=== PATIENT | female | born 1960 | race Caucasian/White ===

== ENCOUNTER 2020-08-05 14:30 | Outpatient (RCR) | payer MEDICARE, SELFPAY ==
--- NOTE | 2020-07-28 15:43 | PT.OIE ---
Current Diagnoses Pain in right knee (07/28/20) Visit Care Team Role Provider Type Sukh Augustin MD Attending Provider Non-Staff Primary Care Provider Referring Provider Specialty: Medical Address: [address] [place] [address], [place], [address] Email: Physical Therapy Initial Evaluation PT-OP-A Visit Information Start: 07/27/20 15:27 Freq: Status: Active Protocol: Document 07/28/20 13:00 MB (Rec: 07/28/20 13:36 MB [id number]) Out-Patient Physical Therapy Visit Information Visit Information Visit Type Initial Evaluation Visit Note Medicare Physical Therapy Visit Start Time 13:00 Visit Stop Time 13:55 Total Visit Minutes 55 Visit Number 1 Evaluation Information Evaluation Date 07/28/20 PT-OP-B Current Condition Start: 07/27/20 15:27 Freq: Status: Active Protocol: Document 07/28/20 13:00 MB (Rec: 07/28/20 13:36 MB [id number]) Current Condition History of Current Condition Onset Date January 2020 Current Complaints Right knee doesn't work. Can' t walk, can't stand, can't sleep. History of Current Condition Pt reports history of back pain with fusion when she was 30 y/o and that it lasted about 20 years. Pt tripped two years ago and and injured right groin. It was a twisting injury and she did not land on her knee. Pt had a fall down the stairs in January. She was holding onto the rail on the left and had another twisting injury with her right foot anchored in non -slip shoes. Pt reports she got a right knee x-ray in May and states that the doctor did not give her any information about it. She thinks she might have arthritis in the knee. She reports that she is having pain up to her right groin and sciatic area and low back. She has 4 stairs to get into the house. She has a column that she leans into. Pt states that she has been using a cane in her right hand. She does not bring her cane into PT. She does not think that she has room for a RW. She just moved to a new apartment and has a lot of stuff around. Pt reports she has the most pain with standing and walking . She has trouble finding a good position to sleep in. She is sleeping on a tempurpedic mattress on the floor. She is driving herself and doing all self-care tasks. PMH: pt states that she has a history of PTSD, lumbar fusion , DM, HTN, depression. Pt is very tearful during evaluation . Pt reports that she is in a safe environment but does not have any support. Pt is taking Percicet 10 mg no more than twice a day. She has been on pain medicaion therapy since 2004 for her back. She is not using ice because it hurts. She is using Voltaren. Pt takes Baclofen for back pain and it is helping the knee. Pt does not have an orthopedic appointment but is concerned about needing surgical consult . Pt reports right medial knee pain up to 10/10, right groin pain up to 8/10 and right LBP up to 5/10. Treatment Goals Patient/Caregiver Goals To get her right knee better and hopefully not have surgery . PT-OP-C Subjective Start: 07/27/20 15: Freq: Status: Active Protocol: Document 07/28/20 13:00 MB (Rec: 07/28/20 14:03 MB [id number]) OP-PT Subjective Patient Comments Patient Comments See history of current condition Patient Questionnaires Lower Extremity Functional Scale LEFS Score 12 LEFS Impairment 60 to 79% Impaired (Score 17- 31) PT-OP-D Balance Start: 07/27/20 15:27 Freq: Status: Active Protocol: Document 07/28/20 13:00 MB (Rec: 07/28/20 15:42 MB [id number]) OP-PT Balance Assessment Sitting Balance Static Sitting Balance Ability Normal Dynamic Sitting Balance Ability Normal Standing Balance Static Standing Balance Ability Fair Dynamic Standing Balance Ability Poor Standing Balance Comments Pt favors the right leg and is able to maintain static standing balance at front office spec with walker but otherwise requests to sit Balance Tests Other Other Balance Tests Performed Pt is unable to perform further balance testing today Grady Fall Scale Copyright Permission PT-OP-G Mobility & Gait Start: 07/27/20 15:27 Freq: Status: Active Protocol: Document 07/28/20 13:00 MB (Rec: 07/28/20 15:42 MB [id number]) OP Gait Assessment Gait Gait Assistance Required: Independent Distance (Feet) 75 Assistive Devices Assistive Device None,Front Wheeled Walker Gait Deviations General Gait Pattern Antalgic,Decreased Stride Length,Decreased Feet Clearance,Flexed Trunk Factors Limiting Gait Function Factors Limiting Gait Function Decreased Strength,Pain,Poor Balance,Poor Safety Awareness Comments Gait Comments Pt tends to gait train with right leg straight and is able to improve right knee flexion with walker and supportive right knee KT PT-OP-J Posture/Palpation/Skin Start: 07/27/20 15:27 Freq: Status: Active Protocol: Document 07/28/20 13:00 MB (Rec: 07/28/20 15:42 MB [id number]) Posture Evaluation Comments Posture Comments Forward flexed posture with rounded shoulders, Dowager's hump, increased body mass, anterior tilt pelvis. No noticeable edema right knee. PT-OP-K Range of Motion Start: 07/27/20 15:27 Freq: Status: Active Protocol: Document 07/28/20 13:00 MB (Rec: 07/28/20 15:42 MB [id number]) Knee Goniometric Range of Motion Knee ROM Limitations Comments B AROM supine 0-120 deg and pt does not report pain, PT distracts pt during testing by conversation. Pt also naturally bends both knees in supine similarly PT-OP-M Strength Start: 07/27/20 15:27 Freq: Status: Active Protocol: Document 07/28/20 13:00 MB (Rec: 07/28/20 15:42 MB [id number]) Hip Strength Hip Manual Muscle Testing Left Flexion (L2) 5 Normal Abduction 3+ Fair+ Right Flexion (L2) 5 Normal Abduction 4 Good Knee Strength Knee Manual Muscle Testing Left Flexion (S2) 5 Normal Extension (L3) 5 Normal Right Comments NT d/t pain Ankle/Foot Strength Ankle and Foot Manual Muscle Testing Left Dorsiflexion (L4) 5 Normal Right Dorsiflexion (L4) 5 Normal Toe Strength Toe Manual Muscle Testing Left Great Toe Extension 5 Normal Right Great Toe Extension 5 Normal PT-OP-Q Treatments Start: 07/27/20 15:27 Freq: Status: Active Protocol: Document 07/28/20 13:00 MB (Rec: 07/28/20 14:08 MB [id number]) Gait Training Gait Activity Gait training with walker Comments Gait without walker or KT: antalgic, favoring the right knee and pt tends to keep the right knee straight and perform step-to gait Gait without walker after taping appears similar Gait with walker and KT supporting right knee: pt is able to bend knee for gait better, gait is still antalgic and slow with occ step-to pattern. Pt has less pain with standing and can stand at front office spec with walker Manual Therapy Treatment Taping R knee Comments Black KT to support right knee : c strip under patella and B I strips to support medial and lateral knee Self-Care/Home Management Treatment Education Caregiver Education Importance of trying to get a RW to help with gait pattern and right leg and back pain; if using walker, use in left hand; increase non-caffeinated fluid intake; plan for therapy PT-OP-T Assessment and Plan Start: 07/27/20 15:27 Freq: Status: Active Protocol: Document 07/28/20 13:00 MB (Rec: 07/28/20 14:11 MB [id number]) Physical Therapy Assessment Rehab Potential Rehabilitation Potential Fair Evaluation Complexity Number of Personal Factors/Comorbidities 3 or More Number of Body Systems Impaired 3 Clinical Presentation at Evaluation Evolving Impairments Impairments Activity Tolerance,Balance, Functional Activities, Functional Mobility,Gait,Pain, Posture,Soft Tissue Mobility, Strength Other Impairments Personal factors: pt lives alone and has no help, stairs to enter home, depression and PTSD (decreased support and coping strategies) Body systems affected: psychosocial, musculoskeletal, metabolic (DM and possible underlying inflammatory issue given presentation) Her clinical picture is evolving given mechanism of injury, ongoing pain, unsure if anatomical change in right meniscus/ligmentous Other Concerns Fall Risk Yes, recent history of fall Goals 4 Custodial Goal (LTG) Pt will perform progressive HEP with I including flexibility, alignment, ROM, strengthening, balance and gait to improve gait and pain by 09/27/2020. LTG Duration 8 weeks 3 Electrocardiogram Technician Goal (LTG) Pt will perform Romberg with eyes closed for at least 1' to improve balance and decrease fall risk by 09/27/2020. LTG Duration 8 weeks 2 Custodial Goal (LTG) Pt will present with B hip flexion and abduction, and right knee extension and flexion strength to 5/5 to improve gait by 09/27/2020. LTG Duration 8 weeks 1 Electrocardiogram Technician Goal (LTG) Pt will present with LE functional index score to reflect no more than 30% impairment to reflect improved functional mobility and decreased pain by 09/27/2020. LTG Duration 8 weeks Assessment Summary Assessment Pt is a 60 y/o female presenting with complicated functional and medical presentation. Pt had a fall down the steps in January where she describes catching herself with her hands on the left rail and twisting her right knee with her right knee planted. She had a similar twisting injury previously. She presents with medial right knee pain with point tenderness at the joint line. Pt reports that knee x-ray was negative and that she has not seen an orthopedist. PT is concerned about a meniscal and /or ligamentous injury and recommends orthopedic consult to determine if she needs further dxs. Pt reports history of chronic back pain s /p injury and reports of failed fusion, takes opioids daily, and reports history of depression and PTSD. She is tearful during PT examination. Pt will benefit from PT to improve ROM, strength, balance and gait. This date, PT teaches gait with RW and provides KT for support of right knee. Overall functional prognosis is guarded. Physical Therapy Plan Frequency and Duration Frequency of Treatment 2x/Week Duration of Treatment 8 weeks Plan of Care Start Date 07/28/20 Plan of Care End Date 09/26/20 Therapeutic Interventions Therapeutic Interventions Aquatic Therapy,Balance Training,Canalithic Repositioning,Gait Training, Home Exercise Program,Manual Therapy,Neuromuscular Re- education,Patient/Caregiver Education,Self-Care/Home Management,Taping,Therapeutic Activities,Therapeutic Exercises Modalities Cold Pack/Ice Massage,Electric Stimulation,Hot Packs, Ultrasound Other Referrals/Consults Referrals/Consults Recommended Orthopedist consult to assess right knee, consider further dxs Next Visit Focus/Plan Next Note Type Treatment Note Next Visit Plan Initiate gentle exercises, ongoing gait training with AD
--- NOTE | 2020-07-28 15:43 | PT.OPPOC ---
Physical, Occupational & Speech Therapy At [facility] Current Diagnoses Pain in right knee (07/28/20) Visit Care Team Role Provider Type Sukh Augustin MD Attending Provider Non-Staff Primary Care Provider Referring Provider Specialty: Medical Address: [address] [place] [address], [id number] Email: Plan Of Care PT-OP-T Assessment and Plan Start: 07/27/20 15:27 Freq: Status: Active Protocol: Document 07/28/20 13:00 MB (Rec: 07/28/20 14:11 MB [id number]) Physical Therapy Assessment Rehab Potential Rehabilitation Potential Fair Evaluation Complexity Number of Personal Factors/Comorbidities 3 or More Number of Body Systems Impaired 3 Clinical Presentation at Evaluation Evolving Impairments Impairments Activity Tolerance,Balance, Functional Activities, Functional Mobility,Gait,Pain, Posture,Soft Tissue Mobility, Strength Other Impairments Personal factors: pt lives alone and has no help, stairs to enter home, depression and PTSD (decreased support and coping strategies) Body systems affected: psychosocial, musculoskeletal, metabolic (DM and possible underlying inflammatory issue given presentation) Her clinical picture is evolving given mechanism of injury, ongoing pain, unsure if anatomical change in right meniscus/ligmentous Other Concerns Fall Risk Yes, recent history of fall Goals 4 Senior Care Goal (LTG) Pt will perform progressive HEP with I including flexibility, alignment, ROM, strengthening, balance and gait to improve gait and pain by 09/27/2020. LTG Duration 8 weeks 3 Senior Care Goal (LTG) Pt will perform Romberg with eyes closed for at least 1' to improve balance and decrease fall risk by 09/27/2020. LTG Duration 8 weeks 2 Senior Care Goal (LTG) Pt will present with B hip flexion and abduction, and right knee extension and flexion strength to 5/5 to improve gait by 09/27/2020. LTG Duration 8 weeks 1 C S S Representative Goal (LTG) Pt will present with LE functional index score to reflect no more than 30% impairment to reflect improved functional mobility and decreased pain by 09/27/2020. LTG Duration 8 weeks Assessment Summary Assessment Pt is a 60 y/o female presenting with complicated functional and medical presentation. Pt had a fall down the steps in January where she describes catching herself with her hands on the left rail and twisting her right knee with her right knee planted. She had a similar twisting injury previously. She presents with medial right knee pain with point tenderness at the joint line. Pt reports that knee x-ray was negative and that she has not seen an orthopedist. PT is concerned about a meniscal and /or ligamentous injury and recommends orthopedic consult to determine if she needs further dxs. Pt reports history of chronic back pain s /p injury and reports of failed fusion, takes opioids daily, and reports history of depression and PTSD. She is tearful during PT examination. Pt will benefit from PT to improve ROM, strength, balance and gait. This date, PT teaches gait with RW and provides KT for support of right knee. Overall functional prognosis is guarded. Physical Therapy Plan Frequency and Duration Frequency of Treatment 2x/Week Duration of Treatment 8 weeks Plan of Care Start Date 07/28/20 Plan of Care End Date 09/26/20 Therapeutic Interventions Therapeutic Interventions Aquatic Therapy,Balance Training,Canalithic Repositioning,Gait Training, Home Exercise Program,Manual Therapy,Neuromuscular Re- education,Patient/Caregiver Education,Self-Care/Home Management,Taping,Therapeutic Activities,Therapeutic Exercises Modalities Cold Pack/Ice Massage,Electric Stimulation,Hot Packs, Ultrasound Other Referrals/Consults Referrals/Consults Recommended Orthopedist consult to assess right knee, consider further dxs Next Visit Focus/Plan Next Note Type Treatment Note Next Visit Plan Initiate gentle exercises, ongoing gait training with AD Plan of Care Dates Plan of Care Start Date 07/28/20 Plan of Care End Date 09/26/20 Electronically Signed by: Allison Fajardo PT 07/28/20 [id number] Please Sign and Return: I have reviewed this Plan of Care and certify that the skilled therapy services above are required to meet the patient?s needs. Physician Signature Date Printed Name and Credentials Clinical Instructor Signature Printed Name and Credentials
--- NOTE | 2020-08-04 13:48 | PT.OTN ---
Current Diagnoses Pain in right knee (08/04/20) Physical Therapy Treatment Note PT-OP-A Visit Information Start: 07/27/20 15:27 Freq: Status: Active Protocol: Document 08/04/20 13:00 MB (Rec: 08/04/20 13:48 MB [id number]) Out-Patient Physical Therapy Visit Information Visit Information Visit Type Treatment Note Visit Note Medicare Physical Therapy Visit Start Time 13:00 Visit Stop Time 13:45 Total Visit Minutes 45 Visit Number 2 PT-OP-B Current Condition Start: 07/27/20 15:27 Freq: Status: Active Protocol: Document 07/28/20 13:00 MB (Rec: 07/28/20 13:36 MB [id number]) Current Condition History of Current Condition Onset Date January 2020 Current Complaints Right knee doesn't work. Can' t walk, can't stand, can't sleep. History of Current Condition Pt reports history of back pain with fusion when she was 30 y/o and that it lasted about 20 years. Pt tripped two years ago and and injured right groin. It was a twisting injury and she did not land on her knee. Pt had a fall down the stairs in January. She was holding onto the rail on the left and had another twisting injury with her right foot anchored in non -slip shoes. Pt reports she got a right knee x-ray in May and states that the doctor did not give her any information about it. She thinks she might have arthritis in the knee. She reports that she is having pain up to her right groin and sciatic area and low back. She has 4 stairs to get into the house. She has a column that she leans into. Pt states that she has been using a cane in her right hand. She does not bring her cane into PT. She does not think that she has room for a RW. She just moved to a new apartment and has a lot of stuff around. Pt reports she has the most pain with standing and walking . She has trouble finding a good position to sleep in. She is sleeping on a tempurpedic mattress on the floor. She is driving herself and doing all self-care tasks. PMH: pt states that she has a history of PTSD, lumbar fusion , DM, HTN, depression. Pt is very tearful during evaluation . Pt reports that she is in a safe environment but does not have any support. Pt is taking Percicet 10 mg no more than twice a day. She has been on pain medicaion therapy since 2004 for her back. She is not using ice because it hurts. She is using Voltaren. Pt takes Baclofen for back pain and it is helping the knee. Pt does not have an orthopedic appointment but is concerned about needing surgical consult . Pt reports right medial knee pain up to 10/10, right groin pain up to 8/10 and right LBP up to 5/10. Treatment Goals Patient/Caregiver Goals To get her right knee better and hopefully not have surgery . PT-OP-C Subjective Start: 07/27/20 15:27 Freq: Status: Active Protocol: Document 08/04/20 13:00 MB (Rec: 08/04/20 13:48 MB [id number]) OP-PT Subjective Patient Comments Patient Comments Pt miswrote her appointments in calendar and so missed last appointment. She will need afternoon appointments from here on out. 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 but otherwise requests to sit Balance Tests Other Other Balance Tests Performed Pt is unable to perform further balance testing today Grady Fall Scale Copyright Permission PT-OP-G Mobility & Gait Start: 07/27/20 15:27 Freq: Status: Active Protocol: Document 07/28/20 13:00 MB (Rec: 07/28/20 15:42 MB [id number]) OP Gait Assessment Gait Gait Assistance Required: Independent Distance (Feet) 75 Assistive Devices Assistive Device None,Front Wheeled Walker Gait Deviations General Gait Pattern Antalgic,Decreased Stride Length,Decreased Feet Clearance,Flexed Trunk Factors Limiting Gait Function Factors Limiting Gait Function Decreased Strength,Pain,Poor Balance,Poor Safety Awareness Comments Gait Comments Pt tends to gait train with right leg straight and is able to improve right knee flexion with walker and supportive right knee KT PT-OP-J Posture/Palpation/Skin Start: 07/27/20 15:27 Freq: Status: Active Protocol: Document 07/28/20 13:00 MB (Rec: 07/28/20 15:42 MB [id number]) Posture Evaluation Comments Posture Comments Forward flexed posture with rounded shoulders, Dowager's hump, increased body mass, anterior tilt pelvis. No noticeable edema right knee. PT-OP-K Range of Motion Start: 07/27/20 15:27 Freq: Status: Active Protocol: Document 07/28/20 13:00 MB (Rec: 07/28/20 15:42 MB [id number]) Knee Goniometric Range of Motion Knee ROM Limitations Comments B AROM supine 0-120 deg and pt does not report pain, PT distracts pt during testing by conversation. Pt also naturally bends both knees in supine similarly PT-OP-M Strength Start: 07/27/20 15:27 Freq: Status: Active Protocol: Document 07/28/20 13:00 MB (Rec: 07/28/20 15:42 MB [id number]) Hip Strength Hip Manual Muscle Testing Left Flexion (L2) 5 Normal Abduction 3+ Fair+ Right Flexion (L2) 5 Normal Abduction 4 Good Knee Strength Knee Manual Muscle Testing Left Flexion (S2) 5 Normal Extension (L3) 5 Normal Right Comments NT d/t pain Ankle/Foot Strength Ankle and Foot Manual Muscle Testing Left Dorsiflexion (L4) 5 Normal Right Dorsiflexion (L4) 5 Normal Toe Strength Toe Manual Muscle Testing Left Great Toe Extension 5 Normal Right Great Toe Extension 5 Normal PT-OP-Q Treatments Start: 07/27/20 15:27 Freq: Status: Active Protocol: Document 08/04/20 13:00 MB (Rec: 08/04/20 13:48 MB [id number]) Therapeutic Exercises Supine Exercises HS, APs, QS Comments 5 reps all today EFT Comments Pt performs today and PT has to re-direct her often Self-Care/Home Management Treatment Education Other Education Proper use of cane with correct height, log roll technique, benefits of aquatic therapy when pool opens for this, research and purpose for EFT, sympathetic and parasympathetic nervous system , proper sleeping hygiene PT-OP-T Assessment and Plan Start: 07/27/20 15:27 Freq: Status: Active Protocol: Document 08/04/20 13:00 MB (Rec: 08/04/20 13:48 MB [id number]) Physical Therapy Assessment Rehab Potential Rehabilitation Potential Fair Evaluation Complexity Number of Personal Factors/Comorbidities 3 or More Number of Body Systems Impaired 3 Clinical Presentation at Evaluation Evolving Impairments Impairments Activity Tolerance,Balance, Functional Activities, Functional Mobility,Gait,Pain, Posture,Soft Tissue Mobility, Strength Other Impairments Personal factors: pt lives alone and has no help, stairs to enter home, depression and PTSD (decreased support and coping strategies) Body systems affected: psychosocial, musculoskeletal, metabolic (DM and possible underlying inflammatory issue given presentation) Her clinical picture is evolving given mechanism of injury, ongoing pain, unsure if anatomical change in right meniscus/ligmentous Other Concerns Fall Risk Yes, recent history of fall Goals 4 Group Home Goal (LTG) Pt will perform progressive HEP with I including flexibility, alignment, ROM, strengthening, balance and gait to improve gait and pain by 09/27/2020. LTG Duration 8 weeks 3 Group Home Goal (LTG) Pt will perform Romberg with eyes closed for at least 1' to improve balance and decrease fall risk by 09/27/2020. LTG Duration 8 weeks 2 Law Office Receptionist Goal (LTG) Pt will present with B hip flexion and abduction, and right knee extension and flexion strength to 5/5 to improve gait by 09/27/2020. LTG Duration 8 weeks 1 Law Office Receptionist Goal (LTG) Pt will present with LE functional index score to reflect no more than 30% impairment to reflect improved functional mobility and decreased pain by 09/27/2020. LTG Duration 8 weeks Assessment Summary Assessment Pt is tearful during treatment today and is unable to focus on PT recommendation to follow -up with PCP about orthopedic consult. Pt is very upset about not having handicap parking permit. It is difficult to get pt in a good position with leg support and she prefers to use peppermint muscle ease spray. She is emotional about previous injuries, surgeries and doctors. Pt reports extreme pain today after doing laundry yesterday. She used pain medication, hot bath and spray today as a result of pain. Emotional lability and difficulty staying on tasks as well as high pain level and inability to get in a comfortable position are barriers to PT. Physical Therapy Plan Frequency and Duration Frequency of Treatment 2x/Week Duration of Treatment 8 weeks Plan of Care Start Date 07/28/20 Plan of Care End Date 09/26/20 Therapeutic Interventions Therapeutic Interventions Aquatic Therapy,Balance Training,Canalithic Repositioning,Gait Training, Home Exercise Program,Manual Therapy,Neuromuscular Re- education,Patient/Caregiver Education,Self-Care/Home Management,Taping,Therapeutic Activities,Therapeutic Exercises Modalities Cold Pack/Ice Massage,Electric Stimulation,Hot Packs, Ultrasound Other Referrals/Consults Referrals/Consults Recommended Orthopedist consult to assess right knee, consider further dxs Next Visit Focus/Plan Next Note Type Treatment Note Next Visit Plan Initiate gentle exercises, ongoing gait training with AD
--- NOTE | 2020-08-05 15:10 | PT.OTN ---
Current Diagnoses Pain in right knee (08/05/20) Physical Therapy Treatment Note PT-OP-A Visit Information Start: 07/27/20 15:27 Freq: Status: Active Protocol: Document 08/05/20 14:41 MB (Rec: 08/05/20 15:09 MB [id number]) Out-Patient Physical Therapy Visit Information Visit Information Visit Type Treatment Note Visit Note Medicare Physical Therapy Pt arrives late to appointment Visit Start Time 14:41 Visit Stop Time 15:09 Total Visit Minutes 28 Visit Number 3 PT-OP-B Current Condition Start: 07/27/20 15:27 Freq: Status: Active Protocol: Document 07/28/20 13:00 MB (Rec: 07/28/20 13:36 MB [id number]) Current Condition History of Current Condition Onset Date January 2020 Current Complaints Right knee doesn't work. Can' t walk, can't stand, can't sleep. History of Current Condition Pt reports history of back pain with fusion when she was 30 y/o and that it lasted about 20 years. Pt tripped two years ago and and injured right groin. It was a twisting injury and she did not land on her knee. Pt had a fall down the stairs in January. She was holding onto the rail on the left and had another twisting injury with her right foot anchored in non -slip shoes. Pt reports she got a right knee x-ray in May and states that the doctor did not give her any information about it. She thinks she might have arthritis in the knee. She reports that she is having pain up to her right groin and sciatic area and low back. She has 4 stairs to get into the house. She has a column that she leans into. Pt states that she has been using a cane in her right hand. She does not bring her cane into PT. She does not think that she has room for a RW. She just moved to a new apartment and has a lot of stuff around. Pt reports she has the most pain with standing and walking . She has trouble finding a good position to sleep in. She is sleeping on a tempurpedic mattress on the floor. She is driving herself and doing all self-care tasks. PMH: pt states that she has a history of PTSD, lumbar fusion , DM, HTN, depression. Pt is very tearful during evaluation . Pt reports that she is in a safe environment but does not have any support. Pt is taking Percicet 10 mg no more than twice a day. She has been on pain medicaion therapy since 2004 for her back. She is not using ice because it hurts. She is using Voltaren. Pt takes Baclofen for back pain and it is helping the knee. Pt does not have an orthopedic appointment but is concerned about needing surgical consult . Pt reports right medial knee pain up to 10/10, right groin pain up to 8/10 and right LBP up to 5/10. Treatment Goals Patient/Caregiver Goals To get her right knee better and hopefully not have surgery . PT-OP-C Subjective Start: 07/27/20 15:27 Freq: Status: Active Protocol: Document 08/05/20 14:41 MB (Rec: 08/05/20 15:09 MB [id number]) OP-PT Subjective Patient Comments Patient Comments Pt states that she is very sore, lots of pain and little control of it. She is having more pain today than yesterday . 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 but otherwise requests to sit Balance Tests Other Other Balance Tests Performed Pt is unable to perform further balance testing today Grady Fall Scale Copyright Permission PT-OP-G Mobility & Gait Start: 07/27/20 15:27 Freq: Status: Active Protocol: Document 07/28/20 13:00 MB (Rec: 07/28/20 15:42 MB [id number]) OP Gait Assessment Gait Gait Assistance Required: Independent Distance (Feet) 75 Assistive Devices Assistive Device None,Front Wheeled Walker Gait Deviations General Gait Pattern Antalgic,Decreased Stride Length,Decreased Feet Clearance,Flexed Trunk Factors Limiting Gait Function Factors Limiting Gait Function Decreased Strength,Pain,Poor Balance,Poor Safety Awareness Comments Gait Comments Pt tends to gait train with right leg straight and is able to improve right knee flexion with walker and supportive right knee KT PT-OP-J Posture/Palpation/Skin Start: 07/27/20 15:27 Freq: Status: Active Protocol: Document 07/28/20 13:00 MB (Rec: 07/28/20 15:42 MB [id number]) Posture Evaluation Comments Posture Comments Forward flexed posture with rounded shoulders, Dowager's hump, increased body mass, anterior tilt pelvis. No noticeable edema right knee. PT-OP-K Range of Motion Start: 07/27/20 15:27 Freq: Status: Active Protocol: Document 07/28/20 13:00 MB (Rec: 07/28/20 15:42 MB [id number]) Knee Goniometric Range of Motion Knee ROM Limitations Comments B AROM supine 0-120 deg and pt does not report pain, PT distracts pt during testing by conversation. Pt also naturally bends both knees in supine similarly PT-OP-M Strength Start: 07/27/20 15:27 Freq: Status: Active Protocol: Document 07/28/20 13:00 MB (Rec: 07/28/20 15:42 MB [id number]) Hip Strength Hip Manual Muscle Testing Left Flexion (L2) 5 Normal Abduction 3+ Fair+ Right Flexion (L2) 5 Normal Abduction 4 Good Knee Strength Knee Manual Muscle Testing Left Flexion (S2) 5 Normal Extension (L3) 5 Normal Right Comments NT d/t pain Ankle/Foot Strength Ankle and Foot Manual Muscle Testing Left Dorsiflexion (L4) 5 Normal Right Dorsiflexion (L4) 5 Normal Toe Strength Toe Manual Muscle Testing Left Great Toe Extension 5 Normal Right Great Toe Extension 5 Normal PT-OP-Q Treatments Start: 07/27/20 15:27 Freq: Status: Active Protocol: Document 08/05/20 14:41 MB (Rec: 08/05/20 15:09 MB [id number]) Therapeutic Exercises Supine Exercises QS Comments Added today to help decrease knee contracture 4 count breathing with diaphragm component Comments Performed today and pt is able to self-massage pain better HS, APs, QS Comments 5 reps all today Self-Care/Home Management Treatment Education Other Education Role and barriers with OPPT, recommendation to follow-up with PCP about orthopedic consult, trying ice for right knee, con't HEP, walk with cane in left hand to help unweight right hand PT-OP-T Assessment and Plan Start: 07/27/20 15:27 Freq: Status: Active Protocol: Document 08/05/20 14:41 MB (Rec: 08/05/20 15:09 MB [id number]) Physical Therapy Assessment Rehab Potential Rehabilitation Potential Fair Evaluation Complexity Number of Personal Factors/Comorbidities 3 or More Number of Body Systems Impaired 3 Clinical Presentation at Evaluation Evolving Impairments Impairments Activity Tolerance,Balance, Functional Activities, Functional Mobility,Gait,Pain, Posture,Soft Tissue Mobility, Strength Other Impairments Personal factors: pt lives alone and has no help, stairs to enter home, depression and PTSD (decreased support and coping strategies) Body systems affected: psychosocial, musculoskeletal, metabolic (DM and possible underlying inflammatory issue given presentation) Her clinical picture is evolving given mechanism of injury, ongoing pain, unsure if anatomical change in right meniscus/ligmentous Other Concerns Fall Risk Yes, recent history of fall Goals 4 Senior Living Goal (LTG) Pt will perform progressive HEP with I including flexibility, alignment, ROM, strengthening, balance and gait to improve gait and pain by 09/27/2020. LTG Duration Not progressing, d/c PT 3 Senior Living Goal (LTG) Pt will perform Romberg with eyes closed for at least 1' to improve balance and decrease fall risk by 09/27/2020. LTG Duration Not progressing, d/c PT 2 Senior Living Goal (LTG) Pt will present with B hip flexion and abduction, and right knee extension and flexion strength to 5/5 to improve gait by 09/27/2020. LTG Duration Not progressing, d/c PT 1 Senior Living Goal (LTG) Pt will present with LE functional index score to reflect no more than 30% impairment to reflect improved functional mobility and decreased pain by 09/27/2020. LTG Duration Not progressing, d/c PT Assessment Summary Assessment Pt arrives using cane in right hand despite ed from previous treatments. Pt reports ongoing bad pain, worse today than yesterday, but she is laughing some today. Overall pain presentation is an ongoing barrier to PT. Pt can only perform limited HS today, limited by reports of pain. She reports right knee pain with GS. PT and pt discuss barriers to PT this date--pain and posible anatomical damage . PT and pt agree that PT is not helpful at this time. Recommend follow-up with orthopedic surgeon, possible right knee MRI if doctor deems appropriate given two twisting injuries and medial joint line tenderness. She may benefit from aquatic therapy when the pool re-opens. D/c PT at this time. Physical Therapy Plan Frequency and Duration Frequency of Treatment 2x/Week Duration of Treatment 8 weeks Plan of Care Start Date 07/28/20 Plan of Care End Date 09/26/20 Therapeutic Interventions Therapeutic Interventions Aquatic Therapy,Balance Training,Canalithic Repositioning,Gait Training, Home Exercise Program,Manual Therapy,Neuromuscular Re- education,Patient/Caregiver Education,Self-Care/Home Management,Taping,Therapeutic Activities,Therapeutic Exercises Modalities Cold Pack/Ice Massage,Electric Stimulation,Hot Packs, Ultrasound Other Referrals/Consults Referrals/Consults Recommended Orthopedist consult to assess right knee, consider further dxs
--- NOTE | 2020-08-05 15:12 | PT.OPDS ---
Current Diagnoses Pain in right knee (08/05/20) Visit Care Team Role Provider Type Sukh Augustin MD Attending Provider Non-Staff Primary Care Provider Referring Provider Specialty: Medical Address: [address] [place] [address], [place], [address] Email: Visit Number Visit Number 3 Discharge Summary PT-OP-B Current Condition Start: 07/27/20 15:27 Freq: Status: Active Protocol: Document 07/28/20 13:00 MB (Rec: 07/28/20 13:36 MB [id number]) Current Condition History of Current Condition Onset Date January 2020 Current Complaints Right knee doesn't work. Can' t walk, can't stand, can't sleep. History of Current Condition Pt reports history of back pain with fusion when she was 30 y/o and that it lasted about 20 years. Pt tripped two years ago and and injured right groin. It was a twisting injury and she did not land on her knee. Pt had a fall down the stairs in January. She was holding onto the rail on the left and had another twisting injury with her right foot anchored in non -slip shoes. Pt reports she got a right knee x-ray in May and states that the doctor did not give her any information about it. She thinks she might have arthritis in the knee. She reports that she is having pain up to her right groin and sciatic area and low back. She has 4 stairs to get into the house. She has a column that she leans into. Pt states that she has been using a cane in her right hand. She does not bring her cane into PT. She does not think that she has room for a RW. She just moved to a new apartment and has a lot of stuff around. Pt reports she has the most pain with standing and walking . She has trouble finding a good position to sleep in. She is sleeping on a tempurpedic mattress on the floor. She is driving herself and doing all self-care tasks. PMH: pt states that she has a history of PTSD, lumbar fusion , DM, HTN, depression. Pt is very tearful during evaluation . Pt reports that she is in a safe environment but does not have any support. Pt is taking Percicet 10 mg no more than twice a day. She has been on pain medicaion therapy since 2004 for her back. She is not using ice because it hurts. She is using Voltaren. Pt takes Baclofen for back pain and it is helping the knee. Pt does not have an orthopedic appointment but is concerned about needing surgical consult . Pt reports right medial knee pain up to 10/10, right groin pain up to 8/10 and right LBP up to 5/10. Treatment Goals Patient/Caregiver Goals To get her right knee better and hopefully not have surgery . PT-OP-C Subjective Start: 07/27/20 15:27 Freq: Status: Active Protocol: Document 08/05/20 14:41 MB (Rec: 08/05/20 15:09 MB [id number]) OP-PT Subjective Patient Comments Patient Comments Pt states that she is very sore, lots of pain and little control of it. She is having more pain today than yesterday . 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 but otherwise requests to sit Balance Tests Other Other Balance Tests Performed Pt is unable to perform further balance testing today Grady Fall Scale Copyright Permission PT-OP-G Mobility & Gait Start: 07/27/20 15:27 Freq: Status: Active Protocol: Document 07/28/20 13:00 MB (Rec: 07/28/20 15:42 MB [id number]) OP Gait Assessment Gait Gait Assistance Required: Independent Distance (Feet) 75 Assistive Devices Assistive Device None,Front Wheeled Walker Gait Deviations General Gait Pattern Antalgic,Decreased Stride Length,Decreased Feet Clearance,Flexed Trunk Factors Limiting Gait Function Factors Limiting Gait Function Decreased Strength,Pain,Poor Balance,Poor Safety Awareness Comments Gait Comments Pt tends to gait train with right leg straight and is able to improve right knee flexion with walker and supportive right knee KT PT-OP-J Posture/Palpation/Skin Start: 07/27/20 15:27 Freq: Status: Active Protocol: Document 07/28/20 13:00 MB (Rec: 07/28/20 15:42 MB [id number]) Posture Evaluation Comments Posture Comments Forward flexed posture with rounded shoulders, Dowager's hump, increased body mass, anterior tilt pelvis. No noticeable edema right knee. PT-OP-K Range of Motion Start: 07/27/20 15:27 Freq: Status: Active Protocol: Document 07/28/20 13:00 MB (Rec: 07/28/20 15:42 MB [id number]) Knee Goniometric Range of Motion Knee ROM Limitations Comments B AROM supine 0-120 deg and pt does not report pain, PT distracts pt during testing by conversation. Pt also naturally bends both knees in supine similarly PT-OP-M Strength Start: 07/27/20 15:27 Freq: Status: Active Protocol: Document 07/28/20 13:00 MB (Rec: 07/28/20 15:42 MB [id number]) Hip Strength Hip Manual Muscle Testing Left Flexion (L2) 5 Normal Abduction 3+ Fair+ Right Flexion (L2) 5 Normal Abduction 4 Good Knee Strength Knee Manual Muscle Testing Left Flexion (S2) 5 Normal Extension (L3) 5 Normal Right Comments NT d/t pain Ankle/Foot Strength Ankle and Foot Manual Muscle Testing Left Dorsiflexion (L4) 5 Normal Right Dorsiflexion (L4) 5 Normal Toe Strength Toe Manual Muscle Testing Left Great Toe Extension 5 Normal Right Great Toe Extension 5 Normal PT-OP-T Assessment and Plan Start: 07/27/20 15:27 Freq: Status: Active Protocol: Document 08/05/20 14:41 MB (Rec: 08/05/20 15:09 MB [id number]) Physical Therapy Assessment Rehab Potential Rehabilitation Potential Fair Evaluation Complexity Number of Personal Factors/Comorbidities 3 or More Number of Body Systems Impaired 3 Clinical Presentation at Evaluation Evolving Impairments Impairments Activity Tolerance,Balance, Functional Activities, Functional Mobility,Gait,Pain, Posture,Soft Tissue Mobility, Strength Other Impairments Personal factors: pt lives alone and has no help, stairs to enter home, depression and PTSD (decreased support and coping strategies) Body systems affected: psychosocial, musculoskeletal, metabolic (DM and possible underlying inflammatory issue given presentation) Her clinical picture is evolving given mechanism of injury, ongoing pain, unsure if anatomical change in right meniscus/ligmentous Other Concerns Fall Risk Yes, recent history of fall Goals 4 Usp Goal (LTG) Pt will perform progressive HEP with I including flexibility, alignment, ROM, strengthening, balance and gait to improve gait and pain by 09/27/2020. LTG Duration Not progressing, d/c PT 3 Abnormal Psychology Teacher Goal (LTG) Pt will perform Romberg with eyes closed for at least 1' to improve balance and decrease fall risk by 09/27/2020. LTG Duration Not progressing, d/c PT 2 Abnormal Psychology Teacher Goal (LTG) Pt will present with B hip flexion and abduction, and right knee extension and flexion strength to 5/5 to improve gait by 09/27/2020. LTG Duration Not progressing, d/c PT 1 Usp Goal (LTG) Pt will present with LE functional index score to reflect no more than 30% impairment to reflect improved functional mobility and decreased pain by 09/27/2020. LTG Duration Not progressing, d/c PT Assessment Summary Assessment Pt arrives using cane in right hand despite ed from previous treatments. Pt reports ongoing bad pain, worse today than yesterday, but she is laughing some today. Overall pain presentation is an ongoing barrier to PT. Pt can only perform limited HS today, limited by reports of pain. She reports right knee pain with GS. PT and pt discuss barriers to PT this date--pain and posible anatomical damage . PT and pt agree that PT is not helpful at this time. Recommend follow-up with orthopedic surgeon, possible right knee MRI if doctor deems appropriate given two twisting injuries and medial joint line tenderness. She may benefit from aquatic therapy when the pool re-opens. D/c PT at this time. Physical Therapy Plan Frequency and Duration Frequency of Treatment 2x/Week Duration of Treatment 8 weeks Plan of Care Start Date 07/28/20 Plan of Care End Date 09/26/20 Therapeutic Interventions Therapeutic Interventions Aquatic Therapy,Balance Training,Canalithic Repositioning,Gait Training, Home Exercise Program,Manual Therapy,Neuromuscular Re- education,Patient/Caregiver Education,Self-Care/Home Management,Taping,Therapeutic Activities,Therapeutic Exercises Modalities Cold Pack/Ice Massage,Electric Stimulation,Hot Packs, Ultrasound Other Referrals/Consults Referrals/Consults Recommended Orthopedist consult to assess right knee, consider further dxs
== END 2020-08-09 07:51 | disposition home or self-care (01) ==
LOC: PHYS 14:30
PROVIDERS: PCP Family Medicine; Referring Provider Family Medicine; Visit Provider Family Medicine
DX: M25.561 Pain in right knee (principal)
CPT/HCPCS: 97110; 97116; 97162; 97535

== ENCOUNTER 2020-09-26 23:55 | Emergency (ER) | payer MEDICARE, MEDICAID, SELFPAY ==
[2020-09-27] VITALS (13 sets, daily range): BP systolic 162–192; BP diastolic 71–107; PULSE 83–97; RESP 20–23; TEMP 37.4; O2SAT 87–98; BMI 30.7
[2020-09-27 00:22] LABS: COVID19 -Nasal RAPID Negative (Negative)
--- NOTE | 2020-09-27 00:47 | ED.FEVER ---
HPI - Fever General Chief Complaint: Fever Stated Complaint: fever, chills, vomitiing, trouble breathing Time Seen by Provider: 09/27/20 00:46 Source: patient and EMS Mode of arrival: EMS History of Present Illness HPI Narrative: The patient has been ill for 3+ days. She initially developed nausea, vomiting diarrhea, after about a day she felt better. She is on clear liquids. She thought she was back to normal today. She had a solid diet several hours ago. She comes the ER by EMS with recurrent nausea and vomiting. She has dry heaves. Diarrhea has decreased because of her decreased diet. She is passing small amounts of blood and mucus with the bowel movements. She denies chronic GI illness. She denies fever but has had chills. She currently has a headache. She has no sore throat, chest pain, dyspnea or cough. She has promethazine at home for as needed use. She also has muscle relaxants that she is not used. She is diabetic, she is currently not taking medications because she does not feel well with the medications. She has no URI symptoms, headache, or difficulty breathing. She has no fever. Related Data Home Medications Medication Instructions Recorded Confirmed amitriptyline 25 mg PO HS #30 10/10/16 atorvastatin [Lipitor] 20 mg PO HS #30 10/10/16 bupropion HCl [Wellbutrin XL] 150 mg PO QDAY #30 10/10/16 diazepam [Valium] PO Q8HP PRN #45 10/10/16 duloxetine 60 mg PO QDAY #30 10/10/16 oxycodone-acetaminophen 0 tab PO Q4HP PRN #90 10/10/16 quetiapine [Seroquel] 200 mg PO HS #30 10/10/16 Previous Rx's Medication Instructions Recorded promethazine [Phenadoz] 12.5 mg IL Q6HP PRN #5 supp 10/10/16 Allergies Allergy/AdvReac Type Severity Reaction Status Date / Time methotrexate [METHOTREXATE] Allergy Unknown Verified 09/27/20 00:24 ondansetron Allergy Unknown HEADACHE Verified 09/27/20 00:24 [From ZOFRAN ( HYDROCHLORIDE)] Review of Systems Constitutional Constitutional: Denies chills, Denies fever(s), Denies headache(s), Reports lethargy and Reports weakness Eyes Comments: No visual changes ENT Ears, Nose, Mouth, and Throat: Denies headache(s), Denies neck pain and Denies sore throat Cardiovascular Cardiovascular: Denies chest pain, Denies lightheadedness and Denies dyspnea Respiratory Respiratory: Denies cough, Denies dyspnea and Denies wheezing Gastrointestinal Gastrointestinal: Reports as per HPI Genitourinary Genitourinary: Denies dysuria Genitourinary: Denies dysuria Musculoskeletal Musculoskeletal: Denies back pain and Denies neck pain Integumentary/Breasts Skin/Breast: Denies pruritus and Denies rash Neurologic Neurologic: Denies confusion, Denies headache(s) and Reports weakness Psychiatric Psychiatric: Reports anxiety and Denies confusion Allergic/Immunologic Allergic/Immunologic: Denies wheezing Patient History Medical History (Updated 09/27/20 @ 02:59 by Syed Cruz MD) Depression (Acute) Diabetes (Acute) Social History Smoking Status: Former smoker Smoking Status: Former smoker alcohol intake frequency: other Substance Use Type: marijuana Exam Initial Vital Signs Initial Vital Signs: Vital Signs Temperature 99.3 F 09/27/20 00:00 Pulse Rate 97 H 09/27/20 00:00 Respiratory Rate 20 09/27/20 00:00 Blood Pressure 192/107 H 09/27/20 00:00 Pulse Oximetry 97 09/27/20 00:00 Const General: cooperative and well developed Nutritional Appearance: well nourished Other: Recurrent vomiting. HENMT Head: normocephalic and atraumatic Mouth: oral mucosae normal Throat: posterior oropharynx normal Eyes General: appearance normal, both eyes and all related structures Eyelids: eyelids normal Conjunctivae: conjunctivae normal Sclera: sclerae normal Pupils: PERRL EOM: EOM intact bilaterally Neck Neck: No lymphadenopathy and No JVD Resp Effort & Inspection: normal respiratory effort and able to speak in complete sentences Auscultation: clear to auscultation bilaterally, no rales, no rhonchi and no wheezes Cardio Rate: regular rate Rhythm: regular rhythm Heart Sounds: S1 normal, S2 normal, no click, no gallops, no murmurs and no rubs Pulses: normal peripheral pulses GI Other: Epigastric abdominal pain. No distension. No guarding or rebound. No masses. Normal bowel sounds. Back/Spine/Pelvis Back: No CVA tenderness Skin General: no rashes or lesions noted Neuro General: patient alert, patient oriented x3, gait normal and no focal motor deficits Speech: speech normal Extrem General: full ROM, no pedal edema and no calf tenderness Psych Mental Status: mental status grossly normal Speech and Movement: speech and movement normal Course Course Course Narrative: The patient did not initially improve with IV Zofran. Reglan was given. She continued to vomit. Ativan 2 mg was given, the she was able rest, without further vomiting. She is feeling much better. Orders Ordered: ED Orders 09/27/20 EKG-12 Lead Routine 09/27/20 00:02 COVID19 -ED/INPAT/OR/L&D Stat 09/27/20 00:17 Complete Blood Count AUTO DIFF Stat Comprehensive Metabolic Panel Stat Lipase Stat 09/27/20 01:40 UA Complete [Urinalysis and Microscopic] Stat Discontinued Medications Diphenhydramine HCl (Benadryl) 25 mg IV NOW ONE Stop: 09/27/20 00:54 Last Admin: 09/27/20 01:02 Dose: 25 mg Documented by: DANNY Sodium Chloride (Normal Saline 0.9%) 1,000 mls @ 1,000 mls/hr IV BOLUS PRN PRN Reason: Fluid replacement Last Infusion: 09/27/20 02:00 Dose: 0 mls/hr Documented by: Admin: 09/27/20 01:01 Dose: 1,000 mls/hr Documented by: DANNY Ketorolac Tromethamine (Toradol) 30 mg IV NOW ONE Stop: 09/27/20 01:17 Last Admin: 09/27/20 01:23 Dose: 30 mg Documented by: DANNY Lorazepam (Ativan) 2 mg IV NOW ONE Stop: 09/27/20 01:28 Last Admin: 09/27/20 01:55 Dose: 2 mg Documented by: DANNY Metoclopramide HCl (Reglan) 10 mg IV NOW ONE Stop: 09/27/20 00:54 Last Admin: 09/27/20 01:02 Dose: 10 mg Documented by: DANNY Pantoprazole Sodium (Protonix) 40 mg IV NOW ONE Stop: 09/27/20 01:18 Last Admin: 10/27/20 01:23 Dose: 40 mg Documented by: DANNY Promethazine HCl (Phenergan) 12.5 mg PO NOW ONE Stop: 09/27/20 00:20 Last Admin: 09/27/20 01:02 Dose: Not Given Documented by: DANNY Vital Signs Vital signs: Vital Signs - 8 hr 09/27/20 02:00 09/27/20 02:10 09/27/20 02:30 Pulse Rate 83 85 Respiratory Rate 21 20 Blood Pressure 162/75 H Pulse Oximetry 87 L 94 93 09/27/20 02:31 09/27/20 03:00 09/27/20 03:30 Pulse Rate 88 84 85 Respiratory Rate 23 Blood Pressure 179/71 H Pulse Oximetry 96 98 98 09/27/20 04:00 09/27/20 04:30 09/27/20 05:00 Pulse Rate 87 95 H 91 H Respiratory Rate Blood Pressure Pulse Oximetry 95 96 96 09/27/20 05:30 09/27/20 06:00 09/27/20 06:16 Pulse Rate 87 88 Respiratory Rate Blood Pressure 180/74 H Pulse Oximetry 97 97 MDM - Fever Lab Data Result diagrams: 09/27/20 00:17 09/27/20 00:17 Labs: Lab Results 09/27/20 09/27/20 09/27/20 Range/Units 00:02 00:17 00:17 WBC 13.3 H (4.5-11.0) X10^3/uL RBC 4.73 (4.0-5.2) X10^6/uL Hgb 12.8 (12.0-16.0) g/dL Hct 39.0 (36-46) % MCV 82.5 (80-100) fL MCH 27.1 (26-34) PG MCHC 32.9 (30-36) % RDW 13.9 (11.6-14.8) % Plt Count 532 H (150-400) X10^3/uL Neut % (Auto) 80.8 H (50-75) % Lymph % (Auto) 14.2 L (25-40) % Prairie % (Auto) 4.5 (3-14) % Eos % (Auto) 0.0 L (2-4) % Baso % (Auto) 0.5 (0-2) % Neut # (Auto) 28336 H (0800-4343) /uL Lymph # (Auto) 1900 (2799-3468) /uL Prairie # (Auto) 600 (0-900) /uL Eos # (Auto) 0 (0-450) /uL Baso # (Auto) 100 (0-100) /uL Sodium 129 L (137-145) mmol/L Potassium 3.3 L (3.4-5.1) mmol/L Chloride 91 L (98-107) mmol/L Carbon Dioxide 28 (22-32) mmol/L BUN 19 H (7-17) mg/dL Creatinine 0.72 (0.52-1.04) mg/dL Estimated GFR > 60.0 (>60) mL/min BUN/Creatinine Ratio 26.4 H (6-22) Glucose 253 H (70-100) mg/dL Calcium 9.5 (8.4-10.2) mg/dL Total Bilirubin 0.7 (0.2-1.3) mg/dL AST 33 (14-36) IU/L ALT 21 (<35) IU/L Alkaline Phosphatase 96 (38-126) U/L Total Protein 8.0 (6.3-8.2) g/dL Albumin 4.5 (3.5-5.0) g/dL Globulin 3.5 (1.7-4.1) g/dL Albumin/Globulin Ratio 1.3 (1.0-2.8) Lipase 42 (23-300) U/L Urine Color Urine Appearance Urine pH (4.5-8.0) Ur Specific Stamps (1.000-1.035) Urine Protein (Negative) Urine Glucose (UA) (Negative) g/dL Urine Ketones (NEGATIVE) Urine Occult Blood (Negative) Urine Nitrate (Negative) Urine Bilirubin (NEGATIVE) Urine Urobilinogen (0.2) E.U./dL Ur Leukocyte Esterase (NEGATIVE) Urine RBC (0-5/HPF) Urine WBC (0-5/HPF) Ur Squamous Epith Cells (0-5/HPF) Urine Bacteria (None) Ur Culture Indicated? COVID-19 PCR Negative (Negative) 09/27/20 Range/Units 01:40 WBC (4.5-11.0) X10^3/uL RBC (4.0-5.2) X10^6/uL Hgb (12.0-16.0) g/dL Hct (36-46) % MCV (80-100) fL MCH (26-34) PG MCHC (30-36) % RDW (11.6-14.8) % Plt Count (150-400) X10^3/uL Neut % (Auto) (50-75) % Lymph % (Auto) (25-40) % Prairie % (Auto) (3-14) % Eos % (Auto) (2-4) % Baso % (Auto) (0-2) % Neut # (Auto) (8983-3467) /uL Lymph # (Auto) (3037-2173) /uL Prairie # (Auto) (0-900) /uL Eos # (Auto) (0-450) /uL Baso # (Auto) (0-100) /uL Sodium (137-145) mmol/L Potassium (3.4-5.1) mmol/L Chloride (98-107) mmol/L Carbon Dioxide (22-32) mmol/L BUN (7-17) mg/dL Creatinine (0.52-1.04) mg/dL Estimated GFR (>60) mL/min BUN/Creatinine Ratio (6-22) Glucose (70-100) mg/dL Calcium (8.4-10.2) mg/dL Total Bilirubin (0.2-1.3) mg/dL AST (14-36) IU/L ALT (<35) IU/L Alkaline Phosphatase (38-126) U/L Total Protein (6.3-8.2) g/dL Albumin (3.5-5.0) g/dL Globulin (1.7-4.1) g/dL Albumin/Globulin Ratio (1.0-2.8) Lipase (23-300) U/L Urine Color Yellow Urine Appearance Clear Urine pH 6.5 (4.5-8.0) Ur Specific Stamps 1.020 (1.000-1.035) Urine Protein 1+ H (Negative) Urine Glucose (UA) 1+ H (Negative) g/dL Urine Ketones 3+ H (NEGATIVE) Urine Occult Blood 1+ H (Negative) Urine Nitrate Negative (Negative) Urine Bilirubin Negative (NEGATIVE) Urine Urobilinogen 0.2 (0.2) E.U./dL Ur Leukocyte Esterase Negative (NEGATIVE) Urine RBC 1-5/hpf (0-5/HPF) Urine WBC None seen (0-5/HPF) Ur Squamous Epith Cells 1-5 /hpf (0-5/HPF) Urine Bacteria None seen (None) Ur Culture Indicated? Cult not indicated COVID-19 PCR (Negative) Urine Dip Bedside Urine Glucose 250 mg/dl Bedside Urine Bilirubin - Negative Bedside Urine Ketone +++ 80 Urine Specific Stamps 1.020 Bedside Urine Occult Blood + Bedside Urine pH 6.0 Bedside Urine Protein + 30 Bedside Urine Urobilinogen - Negative Bedside Urine Nitrite - Negative Bedside Urine Leukocytes - Negative Esterase ECG Data Attestation: I personally reviewed and interpreted this ECG as follows: (Normal sinus rhythm rate 81 beats per minute. Normal intervals. No ectopy. No acute ST T wave changes.) Discharge Plan Departure Patient Disposition: Home Clinical Impression: Nausea vomiting and diarrhea Discharge Date/Time: 09/27/20 06:17 Instructions: Nausea and Vomiting-Adult Activity Restrictions/Additional Instructions: Promethazine 1 tablet every 4-6 hours as needed for nausea. Initially drink water and clear liquids only. Advance her diet to bland diet as tolerated. Once tolerating a bland diet, advance to regular diet. Return the ER if you developed increase abdominal discomfort or fever. Prescriptions: No Action diazepam [Valium] 5 MG tablet PO Q8HP PRNQty: 45 RF: 0 duloxetine 60 MG capsule,delayed release(DR/EC) 60 mg PO QDAY Qty: 30 RF: 0 amitriptyline 25 MG tablet 25 mg PO HS Qty: 30 RF: 0 quetiapine [Seroquel] 200 MG tablet 200 mg PO HS Qty: 30 RF: 0 atorvastatin [Lipitor] 20 MG tablet 20 mg PO HS Qty: 30 RF: 0 bupropion HCl [Wellbutrin XL] 150 MG tablet extended release 24 hr 150 mg PO QDAY Qty: 30 RF: 0 oxycodone-acetaminophen 5 MG/325 MG tablet 0 tab PO Q4HP PRNQty: 90 RF: 0 promethazine [Phenadoz] 12.5 MG suppository 12.5 mg IL Q6HP PRNQty: 5 RF: 0 Referrals: Sukh Augustin MD [Primary Care Provider] -
[2020-09-27] MEDS: SODIUM CHLORIDE 0.9% 1,000 ML 1000 ML IV (01:01)
[2020-09-27] MEDS: diphenhydrAMINE 50 MG/ML VIAL 25 MG IV (01:02)
[2020-09-27] MEDS: METOCLOPRAMIDE 10 MG/2 ML INJ IV (01:02)
[2020-09-27] MEDS: KETOROLAC 60 MG/2 ML VIAL 30 MG IV (01:23)
[2020-09-27] MEDS: PANTOPRAZOLE 40 MG VIAL IV (01:23)
[2020-09-27 01:33] LABS: Add Manual Diff / Slide Review NO; Basophils Absolute Auto 100 /uL (0-100); Basophils Percent Auto 0.5 % (0-2); Eosinophils Absolute Auto 0 /uL (0-450); Hemoglobin 12.8 g/dL (12.0-16.0); Lymphocytes Absolute Auto 1900 /uL (1100-4500); Lymphocytes Percent Auto 14.2 % (25-40); Mean Corpuscular HGB Conc 32.9 % (30-36); Mean Corpuscular Hemoglobin 27.1 PG (26-34); Mean Corpuscular Volume 82.5 fL (80-100); Monocytes Absolute Auto 600 /uL (0-900); Monocytes Percent Auto 4.5 % (3-14); Neutrophils Absolute Auto 10700 /uL (1500-7000); Neutrophils Percent Auto 80.8 % (50-75); Platelet Count 532 X10^3/uL (150-400); Red Blood Cell Count 4.73 X10^6/uL (4.0-5.2); Red Cell Distribution Width 13.9 % (11.6-14.8); White Blood Cell Count 13.3 X10^3/uL (4.5-11.0)
[2020-09-27 01:38] LABS: Alanine Aminotransferase 21 IU/L (<35); Albumin 4.5 g/dL (3.5-5.0); Albumin Globulin Ratio 1.3 (1.0-2.8); Alkaline Phosphatase 96 U/L (38-126); Aspartate Aminotransferase 33 IU/L (14-36); BUN Creatinine Ratio 26.4 (6-22); Bilirubin Total 0.7 mg/dL (0.2-1.3); Blood Urea Nitrogen 19 mg/dL (7-17); Calcium 9.5 mg/dL (8.4-10.2); Carbon Dioxide 28 mmol/L (22-32); Chloride 91 mmol/L (98-107); Estimated Glomerular Filt Rate > 60.0 mL/min (>60); Globulin 3.5 g/dL (1.7-4.1); Glucose 253 mg/dL (70-100); HEMOLYSIS < 15 (0-50); Lipase 42 U/L (23-300); Potassium 3.3 mmol/L (3.4-5.1); Sodium 129 mmol/L (137-145)
[2020-09-27] MEDS: LORazepam 2 MG/ML INJ IV (01:55)
[2020-09-27 02:27] LABS: Bacteria Urine None Seen; WBC Urine None Seen (0-5/HPF)
[2020-09-27 02:28] LABS: Appearance Urine UA CLEAR; Bilirubin Urine UA NEGATIVE (NEGATIVE); Color Urine UA YELLOW; Glucose Urine UA 1+ g/dL (Negative); Ketones Urine UA 3+ (NEGATIVE); Leukocyte Esterase Urine UA NEGATIVE (NEGATIVE); Nitrite Urine UA NEGATIVE (Negative); Occult Blood Urine UA 1+ (Negative); Protein Urine UA 1+ (Negative); Urobilinogen Urine UA 0.2 E.U./dL (0.2)
[2020-09-27 02:33] LABS: pH Urine UA 6.5 (4.5-8.0)
[2020-09-27 02:40] LABS: RBC Urine 1-5/HPF (0-5/HPF); Squamous Epithelial Cell Urine 1-5 /HPF (0-5/HPF)
[2020-09-27 02:41] LABS: Culture Indicated Urine Cult Not Indicated
--- NOTE | 2020-09-27 02:55 | PC.NURSE ---
ready to d/c. Pt needs to take a taxi home, will stay under obs until 0600 when taxis are running. site lead made aware. Pt reports that she is feeling much better.
--- NOTE | 2020-09-27 04:35 | PC.NURSE ---
Pt sleeping soundly. Resp even and unlabored. VS stable.
--- NOTE | 2020-09-27 13:50 | PC.NURSE ---
Pt states she did not get her discharge instructions. Printed and left at desk for her to pick up worker.
== END 2020-09-27 06:17 | disposition home or self-care (01) ==
PROVIDERS: Emergency Provider Emergency Medicine; PCP Family Medicine
DX: R11.2 Nausea with vomiting, unspecified (principal); R19.7 Diarrhea, unspecified; R51.9 Headache, unspecified; R10.13 Epigastric pain; R50.9 Fever, unspecified
CPT/HCPCS: 80053; 81001; 81003; 83690; 85025; 87635; 93005; 93010; 96361; 96374; 96375; 99284; C9113; J1200; J1885; J2060; J2765

== ENCOUNTER 2021-02-03 00:39 | Emergency (ER) | payer MEDICARE, MEDICAID, SELFPAY ==
[2021-02-03] VITALS (11 sets, daily range): BP systolic 119–146; BP diastolic 68–101; PULSE 85–130; RESP 18–26; TEMP 37–37.1; O2SAT 92–96
[2021-02-03] MEDS: PANTOPRAZOLE 40 MG VIAL IV (01:01)
[2021-02-03] MEDS: SODIUM CHLORIDE 0.9% 1,000 ML 1000 ML IV ×3 (01:10→04:26)
[2021-02-03 01:22] LABS: Add Manual Diff / Slide Review NO; Basophils Absolute Auto 100 /uL (0-100); Basophils Percent Auto 0.9 % (0-2); Eosinophils Absolute Auto 0 /uL (0-450); Hematocrit 41.6 % (36-46); Hemoglobin 13.6 g/dL (12.0-16.0); Lymphocytes Absolute Auto 1800 /uL (1100-4500); Mean Corpuscular HGB Conc 32.7 % (30-36); Mean Corpuscular Hemoglobin 26.6 PG (26-34); Mean Corpuscular Volume 81.5 fL (80-100); Monocytes Absolute Auto 900 /uL (0-900); Monocytes Percent Auto 7.1 % (3-14); Neutrophils Absolute Auto 9800 /uL (1500-7000); Platelet Count 472 X10^3/uL (150-400); Red Cell Distribution Width 16.9 % (11.6-14.8); White Blood Cell Count 12.5 X10^3/uL (4.5-11.0)
[2021-02-03 01:32] LABS: Alanine Aminotransferase 26 IU/L (<35); Albumin Globulin Ratio 1.3 (1.0-2.8); Alkaline Phosphatase 95 U/L (38-126); Aspartate Aminotransferase 19 IU/L (14-36); Bilirubin Total 0.8 mg/dL (0.2-1.3); Blood Urea Nitrogen 17 mg/dL (7-17); Calcium 10.5 mg/dL (8.4-10.2); Carbon Dioxide 31 mmol/L (22-32); Chloride 94 mmol/L (98-107); Estimated Glomerular Filt Rate > 60.0 mL/min (>60); Globulin 3.8 g/dL (1.7-4.1); Glucose 225 mg/dL (70-100); HEMOLYSIS < 15 (0-50); Lipase 71 U/L (23-300); Potassium 3.2 mmol/L (3.4-5.1); Sodium 136 mmol/L (137-145); Total Protein 8.8 g/dL (6.3-8.2)
[2021-02-03 01:41] LABS: NT-proBNP (BNP-Adult 18+) 386 pg/mL (<125)
--- NOTE | 2021-02-03 01:50 | ED_ITS ---
HPI - Nausea/Vomiting/Diarrhea General Chief complaint: Nausea/Vomiting/Diarrhea Stated complaint: N/V Time Seen by Provider: 02/03/21 00:40 Source: patient Mode of arrival: Ambulatory Limitations: no limitations History of Present Illness HPI Narrative: 60-year-old woman with a history of anxiety, depression, hyper lipidemia, diabetes type 2, and hypertension presents with 24 hours of vomiting and diarrhea. And started with diarrhea and then continued with vomiting. She states she has been having dry heaves almost every hour for the last number of hours. She is beginning to feel significantly dehydrated and is hoping for help in dealing with the continued retching. She states that she has had this same t butch happen 4 times last year. Each time seem to be self limited to 24 hours. She did have an ER evaluation with 1 of these that was reportedly unremarkable. She states that she has had chills today but no fevers. She has some substernal epigastric chest pain from the violent retching and she has been doing well. She also complains of some right upper chest pain related to the violence of the vomiting. Low-grade headache but no acute neurologic changes. She is orthostatic and does become dizzy when she stands up for an extended period of time. She did get some mild crampy abdominal pain. No lower extremity edema Related Data Home Medications Medication Instructions Recorded Confirmed amitriptyline 25 mg PO HS #30 10/10/16 atorvastatin [Lipitor] 20 mg PO HS #30 10/10/16 bupropion HCl [Wellbutrin XL] 150 mg PO QDAY #30 10/10/16 diazepam [Valium] PO Q8HP PRN #45 10/10/16 duloxetine 60 mg PO QDAY #30 10/10/16 oxycodone-acetaminophen 0 tab PO Q4HP PRN #90 10/10/16 quetiapine [Seroquel] 200 mg PO HS #30 10/10/16 Previous Rx's Medication Instructions Recorded promethazine [Phenadoz] 12.5 mg MS Q6HP PRN #5 supp 10/10/16 Allergies Allergy/AdvReac Type Severity Reaction Status Date / Time methotrexate [METHOTREXATE] Allergy Unknown Verified 09/27/20 00:24 ondansetron Allergy Unknown HEADACHE Verified 09/27/20 00:24 [From ZOFRAN ( HYDROCHLORIDE)] Review of Systems Review of Systems ROS Unobtainable: All systems reviewed & are unremarkable except as noted in HPI and below Patient History Medical History Depression Diabetes Hyperlipidemia Hypertension Social History Smoking Status: Former smoker Smoking Status: Former smoker alcohol intake frequency: other Substance Use Type: marijuana Exam Narrative Exam Narrative: General: Flushed and moderately ill-appearing but. Able to give a complete and coherent history. HEENT: Dry mucous membranes, normal sclera with reactive pupils, Neck: No JVD, supple Respiratory: Lungs are clear to auscultation, no wheezing no rales no rhonchi. Full and symmetrical air movement Cardiac: Mildly tachycardic with Regular rate and rhythm no murmurs no bruits Abdomen: Soft, mild epigastric tenderness without rebound or guarding., good bowel tones, no flank pain Skin: Warm and dry, no rashes Neurologic: Grossly neurologically intact with no obvious asymmetries or abno rmalities Extremities: No trauma, reasonable capillary refill but intravascular volume is clearly down Psych: Cooperative, appropriate insight and affect Initial Vital Signs Initial Vital Signs: Vital Signs Temperature 98.8 F 02/03/21 00:44 Pulse Rate 130 H 02/03/21 00:44 Respiratory Rate 22 02/03/21 00:44 Blood Pressure 141/101 H 02/03/21 00:44 Pulse Oximetry 96 02/03/21 00:44 Course Orders Ordered: ED Orders 02/03/21 00:40 Urinalysis and Microscopic Stat 02/03/21 01:10 Complete Blood Count AUTO DIFF Stat Comprehensive Metabolic Panel Stat Lipase Stat NT-proBNP (BNP-Adult 18+) Stat 02/03/21 02:40 COVID19 Stat Discontinued Medications Sodium Chloride (Normal Saline 0.9%) 1,000 mls @ 1,000 mls/hr IV BOLUS ONE Stop: 02/03/21 01:39 Last Infusion: 02/03/21 02:12 Dose: 0 mls/hr Documented by: Admin: 02/03/21 01:10 Dose: 1,000 mls/hr Documented by: SHAWN Potassium Chloride 20 meq/ (Sodium Chloride) 260 mls @ 130 mls/hr IV NOW ONE Stop: 02/03/21 03:53 Last Admin: 02/03/21 02:19 Dose: 130 mls/hr Documented by: SHAWN Cosigned by: CAMERON Sodium Chloride (Normal Saline 0.9%) 1,000 mls @ 1,000 mls/hr IV BOLUS ONE Stop: 02/03/21 03:33 Last Titration: 02/03/21 04:01 Dose: Infused Documented by: Sodium Chloride (Normal Saline 0.9%) 1,000 mls @ 1,000 mls/hr IV BOLUS ONE Stop: 02/03/21 05:19 Last Titration: 02/03/21 05:21 Dose: Infused Documented by: Metoclopramide HCl (Metoclopramide 10 Mg/2 Ml Inj) 10 mg IV NOW ONE Stop: 02/03/21 01:43 Last Admin: 02/03/21 02:14 Dose: 10 mg Documented by: SHAWN Ondansetron HCl (Ondansetron 4 Mg/2 Ml Inj) 4 mg IV NOW ONE Stop: 02/03/21 00:41 Last Admin: 02/03/21 01:03 Dose: Not Given Documented by: SHAWN Pantoprazole Sodium (Pantoprazole 40 Mg Vial) 40 mg IV NOW ONE Stop: 02/03/21 00:41 Last Admin: 02/03/21 01:01 Dose: 40 mg Documented by: SHAWN Potassium Chloride (Potassium Chloride 20 Meq Tab) 40 meq PO NOW ONE Stop: 02/03/21 01:55 Last Admin: 02/03/21 02:14 Dose: 40 meq Documented by: SHAWN Vital Signs Vital signs: Vital Signs - 8 hr 02/03/21 00:44 Temperature 98.8 F Pulse Rate 130 H Respiratory Rate 22 Blood Pressure 141/101 H Pulse Oximetry 96 MDM - Nausea/Vomiting/Diarrhea Medical Records Attestation: I reviewed the patient's medical records. Lab Data Attestation: I reviewed the patient's lab results. Result diagrams: 02/03/21 01:10 02/03/21 01:10 Labs: Lab Results 02/03/21 02/03/21 02/03/21 Range/Units 01:10 01:10 02:40 WBC 12.5 H (4.5-11.0) X10^3/uL RBC 5.10 (4.0-5.2) X10^6/uL Hgb 13.6 (12.0-16.0) g/dL Hct 41.6 (36-46) % MCV 81.5 (80-100) fL MCH 26.6 (26-34) PG MCHC 32.7 (30-36) % RDW 16.9 H (11.6-14.8) % Plt Count 472 H (150-400) X10^3/uL Neut % (Auto) 78.0 H (50-75) % Lymph % (Auto) 14.0 L (25-40) % [place] % (Auto) 7.1 (3-14) % Eos % (Auto) 0.0 L (2-4) % Baso % (Auto) 0.9 (0-2) % Neut # (Auto) 9800 H (7456-8673) /uL Lymph # (Auto) 1800 (8442-4647) /uL [place] # (Auto) 900 (0-900) /uL Eos # (Auto) 0 (0-450) /uL Baso # (Auto) 100 (0-100) /uL Sodium 136 L (137-145) mmol/L Potassium 3.2 L (3.4-5.1) mmol/L Chloride 94 L (98-107) mmol/L Carbon Dioxide 31 (22-32) mmol/L BUN 17 (7-17) mg/dL Creatinine 0.81 (0.52-1.04) mg/dL Estimated GFR > 60.0 (>60) mL/min BUN/Creatinine Ratio 21.0 (6-22) Glucose 225 H (70-100) mg/dL Calcium 10.5 H (8.4-10.2) mg/dL Total Bilirubin 0.8 (0.2-1.3) mg/dL AST 19 (14-36) IU/L ALT 26 (<35) IU/L Alkaline Phosphatase 95 (38-126) U/L NT-Pro-B Natriuret Pep 386 H (<125) pg/mL Total Protein 8.8 H (6.3-8.2) g/dL Albumin 5.0 (3.5-5.0) g/dL Globulin 3.8 (1.7-4.1) g/dL Albumin/Globulin Ratio 1.3 (1.0-2.8) Lipase 71 (23-300) U/L SARS-CoV-2 (PCR) Negative (Negative) MDM Narrative Medical decision making narrative: 60-year-old woman with 24 hours of nausea vomiting and diarrhea. Mild dehydration and mild hypokalemia but no other significant abnormalities are appreciated. No signs of significant infection, renal failure, liver failure, acute coronary syndrome or UTI. 530am significantly improved after 2.5 L of fluid. Tolerating liquids. Nausea and vomiting seem to have abated significantly and orthostasis has resolved. She has antiemetics available at home. She is safe for home discharge Discharge Plan Departure Patient Disposition: Home Clinical Impression: Vomiting and diarrhea, Hypokalemia Instructions: DI for Vomiting -- Adult Activity Restrictions/Additional Instructions: Thank you for coming in tonight. You were significantly dehydrated. Fortunately it did not find any evidence of overwhelming infection, kidney failure, liver failure or other life threatening abnormalities. Your potassium was slightly low and we gave you oral and IV potassium. You have nausea medicine available to at home please use this if you have recurrent nausea and vomiting. Please take your usual medications when she gets home this morning I hope you are feeling better Prescriptions: No Action diazepam [Valium] 5 MG tablet PO Q8HP PRNQty: 45 RF: 0 duloxetine 60 MG capsule,delayed release(DR/EC) 60 mg PO QDAY Qty: 30 RF: 0 amitriptyline 25 MG tablet 25 mg PO HS Qty: 30 RF: 0 quetiapine [Seroquel] 200 MG tablet 200 mg PO HS Qty: 30 RF: 0 atorvastatin [Lipitor] 20 MG tablet 20 mg PO HS Qty: 30 RF: 0 bupropion HCl [Wellbutrin XL] 150 MG tablet extended release 24 hr 150 mg PO QDAY Qty: 30 RF: 0 oxycodone-acetaminophen 5 MG/325 MG tablet 0 tab PO Q4HP PRNQty: 90 RF: 0 promethazine [Phenadoz] 12.5 MG suppository 12.5 mg MS Q6HP PRNQty: 5 RF: 0 Referrals: Sukh Augustin MD [Primary Care Provider] -
[2021-02-03] MEDS: METOCLOPRAMIDE 10 MG/2 ML INJ IV (02:14)
[2021-02-03] MEDS: POTASSIUM CHLORIDE 20 MEQ TAB 40 MEQ PO (02:14)
[2021-02-03] MEDS: POTASSIUM CHLORIDE 20 MEQ in SODIUM CHLORIDE 0.9% 250 ML 130 ML IV (02:19)
[2021-02-03 03:11] LABS: COVID19 -Nasal RAPID Negative (Negative)
[2021-02-03 05:21] LABS: Appearance Urine UA CLEAR; Bacteria Urine None Seen; Bilirubin Urine UA NEGATIVE (NEGATIVE); Color Urine UA YELLOW; Glucose Urine UA NEGATIVE (Negative); Ketones Urine UA NEGATIVE (NEGATIVE); Leukocyte Esterase Urine UA NEGATIVE (NEGATIVE); Nitrite Urine UA NEGATIVE (Negative); Occult Blood Urine UA TRACE-INTACT (Negative); Protein Urine UA NEGATIVE (Negative); Specific Gravity Urine UA <=1.005 (1.000-1.035); Urobilinogen Urine UA 0.2 E.U./dL (0.2); WBC Urine None Seen (0-5/HPF)
[2021-02-03 05:32] LABS: Culture Indicated Urine Cult Not Indicated; RBC Urine 0-1/HPF (0-5/HPF); Squamous Epithelial Cell Urine 0-1 /HPF (0-5/HPF)
== END 2021-02-03 06:15 | disposition home or self-care (01) ==
PROVIDERS: Emergency Provider Emergency Medicine; PCP Family Medicine
DX: R11.2 Nausea with vomiting, unspecified (principal); E87.6 Hypokalemia; R19.7 Diarrhea, unspecified; Z20.822 Contact with and (suspected) exposure to COVID-19
CPT/HCPCS: 36415; 80053; 81001; 83690; 83880; 85025; 87635; 96361; 96365; 96366; 96375; 99281; 99284; C9803; C9113; J2765; J3480

== ENCOUNTER 2021-03-09 20:54 | Emergency (ER) | payer MEDICARE, SELFPAY ==
[2021-03-09] VITALS (10 sets, daily range): BP systolic 153–199; BP diastolic 72–99; PULSE 76–93; RESP 17–28; TEMP 37; O2SAT 90–98; BMI 32.5
[2021-03-09 21:17] LABS: Add Manual Diff / Slide Review NO; Basophils Absolute Auto 100 /uL (0-100); Basophils Percent Auto 0.4 % (0-2); Eosinophils Absolute Auto 0 /uL (0-450); Eosinophils Percent Auto 0.1 % (2-4); Hematocrit 39.5 % (36-46); Hemoglobin 13.2 g/dL (12.0-16.0); Lymphocytes Absolute Auto 1300 /uL (1100-4500); Lymphocytes Percent Auto 9.3 % (25-40); Mean Corpuscular HGB Conc 33.3 % (30-36); Mean Corpuscular Hemoglobin 27.8 PG (26-34); Mean Corpuscular Volume 83.6 fL (80-100); Monocytes Absolute Auto 500 /uL (0-900); Monocytes Percent Auto 3.3 % (3-14); Neutrophils Absolute Auto 12100 /uL (1500-7000); Neutrophils Percent Auto 86.9 % (50-75); Platelet Count 398 X10^3/uL (150-400); Red Blood Cell Count 4.73 X10^6/uL (4.0-5.2); Red Cell Distribution Width 16.8 % (11.6-14.8)
[2021-03-09] MEDS: SODIUM CHLORIDE 0.9% 1,000 ML 1000 ML IV (21:21)
[2021-03-09] MEDS: METOCLOPRAMIDE 10 MG/2 ML INJ IV (21:21)
[2021-03-09] MEDS: diphenhydrAMINE 50 MG/ML VIAL 25 MG IV (21:21)
[2021-03-09 21:25] LABS: Lipase 42 U/L (23-300)
[2021-03-09 21:27] LABS: Alanine Aminotransferase 31 IU/L (<35); Albumin 4.9 g/dL (3.5-5.0); Albumin Globulin Ratio 1.5 (1.0-2.8); Alkaline Phosphatase 99 U/L (38-126); Aspartate Aminotransferase 27 IU/L (14-36); BUN Creatinine Ratio 18.9 (6-22); Bilirubin Total 0.6 mg/dL (0.2-1.3); Blood Urea Nitrogen 14 mg/dL (7-17); Calcium 10.4 mg/dL (8.4-10.2); Carbon Dioxide 24 mmol/L (22-32); Chloride 100 mmol/L (98-107); Estimated Glomerular Filt Rate > 60.0 mL/min (>60); Globulin 3.3 g/dL (1.7-4.1); Glucose 263 mg/dL (70-100); HEMOLYSIS < 15 (0-50); Potassium 4.1 mmol/L (3.4-5.1); Sodium 137 mmol/L (137-145); Total Protein 8.2 g/dL (6.3-8.2)
--- NOTE | 2021-03-09 21:49 | DI.US.S_ITS ---
PROCEDURE: US ABDOMEN LIMITED INDICATIONS: RIGHT UPPER QUADRANT PAIN. NAUSEA AND VOMITING. TECHNIQUE: Real-time focused scanning was performed of the abdomen, with image documentation. COMPARISON: None. FINDINGS: Liver is diffusely echogenic. Gallbladder is sonographically normal. No gallstones. No gallbladder wall thickening. Gallbladder wall measures 2.7 millimeters. No pericholecystic fluid. No sonographic Darden sign. Extrahepatic biliary tree is not visualized due to bowel gas and cannot be evaluated. Pancreas is not visualized due to bowel gas and cannot be evaluated. IMPRESSION: 1. No sonographic evidence of cholecystitis. If there is continued clinical concern for cholecystitis, consider nuclear medicine HIDA scan for further evaluation. 2. Echogenic liver. Finding typically represents fatty infiltration; however, finding is nonspecific and correlation with clinical and laboratory findings is recommended to exclude other etiologies including hepatic cirrhosis. Dictated by: Irma Goetz MD, PhD on 03/10/2021 at 8:30 Approved by: Irma Goetz MD, PhD on 03/10/2021 at 8:31
--- NOTE | 2021-03-09 21:51 | ED.NAVMDI ---
HPI - Nausea/Vomiting/Diarrhea General Chief complaint: Nausea/Vomiting/Diarrhea Stated complaint: N/V Time Seen by Provider: 03/09/21 21:01 Source: patient and EMS Mode of arrival: EMS Limitations: no limitations History of Present Illness HPI Narrative: Patient is a 60-year-old female who presents with nausea vomiting and epigastric pain started abruptly today. She states that this happens every 3 months she typically gets Reglan and Benadryl. She does smoke a small amount of marijuana is regularly. She has not had any fever or chills she denies any chest pain. She says all females in her family had gallbladder are problems versus been checked in the past and she says it is normal but she is tender epigastric and right upper quadrant. MD complaint: nausea, vomiting and abdominal pain Quality: cramping Pain Consistency: constant Related Data Home Medications Medication Instructions Recorded Confirmed amitriptyline 25 mg PO HS #30 10/10/16 atorvastatin [Lipitor] 20 mg PO HS #30 10/10/16 bupropion HCl [Wellbutrin XL] 150 mg PO QDAY #30 10/10/16 diazepam [Valium] PO Q8HP PRN #45 10/10/16 duloxetine 60 mg PO QDAY #30 10/10/16 oxycodone-acetaminophen 0 tab PO Q4HP PRN #90 10/10/16 quetiapine [Seroquel] 200 mg PO HS #30 10/10/16 Previous Rx's Medication Instructions Recorded promethazine [Phenadoz] 12.5 mg [place] Q6HP PRN #5 supp 10/10/16 metoclopramide HCl [Reglan] 10 mg PO Q6H PRN #10 tab 03/10/21 Allergies Allergy/AdvReac Type Severity Reaction Status Date / Time methotrexate [METHOTREXATE] Allergy Unknown Verified 09/27/20 00:24 ondansetron Allergy Unknown HEADACHE Verified 09/27/20 00:24 [From ZOFRAN ( HYDROCHLORIDE)] Review of Systems Review of Systems Narrative: GENERAL: Denies chills, fatigue, malaise, fever, sweats, travel HEENT: Denies sinus pain, ear pain, sore throat, difficulty swallowing, neck pain RESPIRATORY: Denies dyspnea, cough, wheezing, hemoptysis, sputum. CARDIOVASCULAR: Denies chest pain, palpitations, orthopnea, edema GASTROINTESTINAL: See HPI : Denies dysuria, frequency, incontinence, hematuria, urinary retention, flank pain. MUSCULOSKELETAL: Denies weakness, joint pain, or bony pain SKIN: No rash, no erythema, no pruritus NEUROLOGIC: Denies weakness, dizziness, headache, numbness, change in speech, confusion PSYCHIATRIC: No concerning psychosocial issues. 12 point review of systems is negative except for those stated above and HPI Patient History Medical History Depression Diabetes Hyperlipidemia Hypertension Social History Smoking Status: Former smoker Smoking Status: Former smoker alcohol intake frequency: other Substance Use Type: marijuana Exam Initial Vital Signs Initial Vital Signs: Vital Signs Pulse Rate 90 03/09/21 20:55 Blood Pressure 199/97 H 03/09/21 20:55 Pulse Oximetry 97 03/09/21 20:55 GENERAL: Alert 60-year-old female who is currently feeling nauseous HEENT: Head atraumatic,EOMI, pupils reactive, face symmetric, moist mucous membranes CARDIOVASCULAR: Regular rate and rhythm without murmurs, rubs or gallops. RESPIRATORY: Breath sounds equal bilaterally, no wheezes rales or rhonchi. ABDOMEN: Soft, epigastric tenderness right upper quadrant tenderness no guarding or rebound EXTREMITIES: Normal range of motion, no clubbing or edema. Neurovascularly intact NEUROLOGICAL: Alert and oriented x4.Normal gait and speech SKIN: Warm, dry, no laceration, no petechiae, no rashes or lesions. Course Orders Ordered: ED Orders 03/09/21 21:49 US abdomen limited Stat EKG-12 Lead Stat 03/09/21 22:03 Troponin & CK Cardiac Panel Stat Discontinued Medications Diphenhydramine HCl (Diphenhydramine 50 Mg/Ml Vial) 25 mg IV NOW ONE Stop: 03/09/21 21:17 Last Admin: 03/09/21 21:21 Dose: 25 mg Documented by: MARLA Haloperidol (Haloperidol 5 Mg/Ml Vial) 2 mg IV NOW ONE Stop: 03/10/21 00:38 Last Admin: 03/10/21 00:44 Dose: 2 mg Documented by: ANA Sodium Chloride (Normal Saline 0.9%) 1,000 mls @ 1,000 mls/hr IV BOLUS ONE Stop: 03/09/21 22:15 Last Infusion: 03/09/21 22:22 Dose: 0 mls/hr Documented by: Admin: 03/09/21 21:21 Dose: 1,000 mls/hr Documented by: MARLA Ketorolac Tromethamine (Ketorolac 60 Mg/2 Ml Vial) 15 mg IV NOW ONE Stop: 03/10/21 01:19 Last Admin: 03/10/21 01:28 Dose: 15 mg Documented by: ANA Lorazepam (Lorazepam 2 Mg/Ml Inj) 1 mg IV NOW ONE Stop: 03/09/21 22:22 Last Admin: 03/09/21 22:29 Dose: 1 mg Documented by: MARLA Metoclopramide HCl (Metoclopramide 10 Mg/2 Ml Inj) 10 mg IV NOW ONE Stop: 03/09/21 21:17 Last Admin: 03/09/21 21:21 Dose: 10 mg Documented by: MARLA Pantoprazole Sodium (Pantoprazole 40 Mg Vial) 40 mg IV NOW ONE Stop: 03/10/21 01:19 Last Admin: 03/10/21 01:28 Dose: 40 mg Documented by: ANA Vital Signs Vital signs: Vital Signs - 8 hr 03/09/21 23:00 03/09/21 23:30 03/10/21 00:25 Temperature 99.1 F Pulse Rate 92 H 89 Respiratory Rate 28 H 21 Blood Pressure 176/90 H 196/95 H Pulse Oximetry 93 96 03/10/21 06:13 Temperature Pulse Rate 108 H Respiratory Rate Blood Pressure 168/74 H Pulse Oximetry 95 MDM - Nausea/Vomiting/Diarrhea Lab Data Attestation: I reviewed the patient's lab results. Result diagrams: 03/09/21 20:58 03/09/21 20:58 Labs: Lab Results 03/09/21 03/09/21 03/09/21 Range/Units 20:58 20:58 20:58 WBC 14.0 H (4.5-11.0) X10^3/uL RBC 4.73 (4.0-5.2) X10^6/uL Hgb 13.2 (12.0-16.0) g/dL Hct 39.5 (36-46) % MCV 83.6 (80-100) fL MCH 27.8 (26-34) PG MCHC 33.3 (30-36) % RDW 16.8 H (11.6-14.8) % Plt Count 398 (150-400) X10^3/uL Neut % (Auto) 86.9 H (50-75) % Lymph % (Auto) 9.3 L (25-40) % [place] % (Auto) 3.3 (3-14) % Eos % (Auto) 0.1 L (2-4) % Baso % (Auto) 0.4 (0-2) % Neut # (Auto) 50111 H (5458-8745) /uL Lymph # (Auto) 1300 (9236-1688) /uL [place] # (Auto) 500 (0-900) /uL Eos # (Auto) 0 (0-450) /uL Baso # (Auto) 100 (0-100) /uL Sodium 137 (137-145) mmol/L Potassium 4.1 (3.4-5.1) mmol/L Chloride 100 (98-107) mmol/L Carbon Dioxide 24 (22-32) mmol/L BUN 14 (7-17) mg/dL Creatinine 0.74 (0.52-1.04) mg/dL Estimated GFR > 60.0 (>60) mL/min BUN/Creatinine Ratio 18.9 (6-22) Glucose 263 H (70-100) mg/dL Calcium 10.4 H (8.4-10.2) mg/dL Total Bilirubin 0.6 (0.2-1.3) mg/dL AST 27 (14-36) IU/L ALT 31 (<35) IU/L Alkaline Phosphatase 99 (38-126) U/L Total Creatine Kinase (30-135) U/L CK-MB (CK-2) CK-MB (CK-2) Rel Index Troponin I (0.01-0.034) ng/mL Total Protein 8.2 (6.3-8.2) g/dL Albumin 4.9 (3.5-5.0) g/dL Globulin 3.3 (1.7-4.1) g/dL Albumin/Globulin Ratio 1.5 (1.0-2.8) Lipase 42 (23-300) U/L 03/09/21 Range/Units 22:03 WBC (4.5-11.0) X10^3/uL RBC (4.0-5.2) X10^6/uL Hgb (12.0-16.0) g/dL Hct (36-46) % MCV (80-100) fL MCH (26-34) PG MCHC (30-36) % RDW (11.6-14.8) % Plt Count (150-400) X10^3/uL Neut % (Auto) (50-75) % Lymph % (Auto) (25-40) % [place] % (Auto) (3-14) % Eos % (Auto) (2-4) % Baso % (Auto) (0-2) % Neut # (Auto) (0320-5217) /uL Lymph # (Auto) (0917-4685) /uL [place] # (Auto) (0-900) /uL Eos # (Auto) (0-450) /uL Baso # (Auto) (0-100) /uL Sodium (137-145) mmol/L Potassium (3.4-5.1) mmol/L Chloride (98-107) mmol/L Carbon Dioxide (22-32) mmol/L BUN (7-17) mg/dL Creatinine (0.52-1.04) mg/dL Estimated GFR (>60) mL/min BUN/Creatinine Ratio (6-22) Glucose (70-100) mg/dL Calcium (8.4-10.2) mg/dL Total Bilirubin (0.2-1.3) mg/dL AST (14-36) IU/L ALT (<35) IU/L Alkaline Phosphatase (38-126) U/L Total Creatine Kinase 30 (30-135) U/L CK-MB (CK-2) TNP CK-MB (CK-2) Rel Index TNP Troponin I < 0.012 (0.01-0.034) ng/mL Total Protein (6.3-8.2) g/dL Albumin (3.5-5.0) g/dL Globulin (1.7-4.1) g/dL Albumin/Globulin Ratio (1.0-2.8) Lipase (23-300) U/L ECG Data Attestation: I personally reviewed and interpreted this ECG as follows: Prior ECG tracings: available for review Interpretation: Normal sinus rhythm rate 81 p.r. interval 160 QRS [address] changes fluid previous EKG MDM Narrative Medical decision making narrative: Patient is continuing to feel nauseous. She did throw up quite a large amount after Reglan and Benadryl. At that point she was given Ativan. She says she was feeling better he but still nauseous. She got up to use the restroom and then vomited again. At which point she was given Haldol. Unclear if she has gastroparesis versus cyclic vomiting syndrome. She is also given Toradol and Protonix. To 30 a.m. patient finally feeling a little bit better tolerating ice chips like to go home but unfortunately needs a taxi cab they are not running again until 6:00 a.m.. Discharge Plan Departure Patient Disposition: Home Clinical Impression: Vomiting Instructions: DI for Vomiting -- Adult Activity Restrictions/Additional Instructions: *You have been diagnosed with vomiting *What to do: Increase fluid intake at home. You may have gastroparesis a complication of diabetes. You will need more testing with her primary care provider to determine this. Another reason may be daily marijuana use suggestion would be to stop using marijuana daily and cut it out completely to see if your symptoms improve *Continue to take medications as directed Reglan 10 mg every 6 hours if needed for nausea or vomiting *Follow up with your primary care provider in 2-3 days *Return to ER if you should have persistent vomiting, increased pain, inability to tolerate fluids or any new, worsening or concerning symptoms Prescriptions: New metoclopramide HCl [Reglan] 10 mg tablet 10 mg PO Q6H PRN (Reason: nausea and vomiting) Qty: 10 RF: 0 No Action diazepam [Valium] 5 MG tablet PO Q8HP PRNQty: 45 RF: 0 duloxetine 60 MG capsule,delayed release(DR/EC) 60 mg PO QDAY Qty: 30 RF: 0 amitriptyline 25 MG tablet 25 mg PO HS Qty: 30 RF: 0 quetiapine [Seroquel] 200 MG tablet 200 mg PO HS Qty: 30 RF: 0 atorvastatin [Lipitor] 20 MG tablet 20 mg PO HS Qty: 30 RF: 0 bupropion HCl [Wellbutrin XL] 150 MG tablet extended release 24 hr 150 mg PO QDAY Qty: 30 RF: 0 oxycodone-acetaminophen 5 MG/325 MG tablet 0 tab PO Q4HP PRNQty: 90 RF: 0 promethazine [Phenadoz] 12.5 MG suppository 12.5 mg VA Q6HP PRNQty: 5 RF: 0 Referrals: Sukh Augustin MD [Primary Care Provider] -
[2021-03-09 22:21] LABS: Creatine Kinase 30 U/L (30-135)
[2021-03-09] MEDS: LORazepam 2 MG/ML INJ 1 MG IV (22:29)
[2021-03-09 22:34] LABS: Troponin I < 0.012 ng/mL (0.01-0.034)
[2021-03-10 00:25] VITALS: TEMP 37.3
[2021-03-10] MEDS: HALOPERIDOL 5 MG/ML VIAL 2 MG IV (00:44)
[2021-03-10] MEDS: KETOROLAC 60 MG/2 ML VIAL 15 MG IV (01:28)
[2021-03-10] MEDS: PANTOPRAZOLE 40 MG VIAL IV (01:28)
[2021-03-10 06:13] VITALS: BP 168/74; PULSE 108; O2SAT 95
== END 2021-03-10 06:22 | disposition home or self-care (01) ==
PROVIDERS: Emergency Provider Emergency Medicine; PCP Family Medicine
DX: R11.2 Nausea with vomiting, unspecified (principal)
CPT/HCPCS: 36415; 76705; 80053; 82550; 83690; 84484; 85025; 93005; 96361; 96374; 96375; 99284; C9113; J1200; J1630; J1885; J2060; J2765

== ENCOUNTER 2021-03-14 15:58 | Emergency (ER) | payer MEDICARE, SELFPAY ==
[2021-03-14 16:00] VITALS: BP 140/81; PULSE 84; RESP 22; TEMP 37.2; O2SAT 96
--- NOTE | 2021-03-14 16:00 | DI.RAD.S_ITS ---
PROCEDURE: XR CHEST 1V INDICATIONS: chest pain TECHNIQUE: One view of the chest was acquired. COMPARISON: None. FINDINGS: Surgical changes and devices: None. Lungs and pleura: Lungs are clear. No pleural effusions or pneumothorax. Mediastinum: Mediastinal contours appear normal. Heart size is normal. Bones and chest wall: No suspicious bony lesions. Overlying soft tissues appear unremarkable. IMPRESSION: No acute cardiopulmonary disease. Dictated by: Misha Garcia M.D. on 03/14/2021 at 16:22 Approved by: Misha Garcia M.D. on 03/14/2021 at 16:22
[2021-03-14 16:24] LABS: Add Manual Diff / Slide Review NO; Basophils Absolute Auto 100 /uL (0-100); Basophils Percent Auto 1.1 % (0-2); Eosinophils Absolute Auto 200 /uL (0-450); Eosinophils Percent Auto 2.9 % (2-4); Hematocrit 39.7 % (36-46); Hemoglobin 13.2 g/dL (12.0-16.0); Lymphocytes Absolute Auto 2900 /uL (1100-4500); Lymphocytes Percent Auto 34.3 % (25-40); Mean Corpuscular HGB Conc 33.3 % (30-36); Mean Corpuscular Hemoglobin 27.8 PG (26-34); Mean Corpuscular Volume 83.5 fL (80-100); Monocytes Absolute Auto 700 /uL (0-900); Monocytes Percent Auto 8.2 % (3-14); Neutrophils Absolute Auto 4500 /uL (1500-7000); Neutrophils Percent Auto 53.5 % (50-75); Platelet Count 377 X10^3/uL (150-400); Red Blood Cell Count 4.76 X10^6/uL (4.0-5.2); Red Cell Distribution Width 16.8 % (11.6-14.8); White Blood Cell Count 8.3 X10^3/uL (4.5-11.0)
[2021-03-14 16:33] LABS: Prothrombin Time 11.8 SECONDS (10.1-12.7)
[2021-03-14 16:35] LABS: PTT Partial Thromboplastin Tim 33 SECONDS (26.4-36.2)
[2021-03-14 16:42] LABS: Alanine Aminotransferase 24 IU/L (<35); Albumin 4.6 g/dL (3.5-5.0); Albumin Globulin Ratio 1.4 (1.0-2.8); Alkaline Phosphatase 75 U/L (38-126); Aspartate Aminotransferase 22 IU/L (14-36); BUN Creatinine Ratio 15.4 (6-22); Bilirubin Total 0.6 mg/dL (0.2-1.3); Blood Urea Nitrogen 12 mg/dL (7-17); Calcium 9.7 mg/dL (8.4-10.2); Carbon Dioxide 27 mmol/L (22-32); Chloride 100 mmol/L (98-107); Creatine Kinase 36 U/L (30-135); Estimated Glomerular Filt Rate > 60.0 mL/min (>60); Globulin 3.2 g/dL (1.7-4.1); Glucose 137 mg/dL (70-100); HEMOLYSIS < 15 (0-50); Lipase 63 U/L (23-300); Magnesium 1.7 mg/dL (1.6-2.3); Potassium 3.6 mmol/L (3.4-5.1); Sodium 136 mmol/L (137-145); Total Protein 7.8 g/dL (6.3-8.2)
[2021-03-14 16:51] LABS: NT-proBNP (BNP-Adult 18+) 28 pg/mL (<125)
[2021-03-14 16:54] LABS: Troponin I < 0.012 ng/mL (0.01-0.034)
[2021-03-14 16:56] VITALS: BP 120/82; PULSE 82; RESP 19; O2SAT 97
[2021-03-14 17:00] VITALS: BP 112/69; PULSE 73; RESP 20; O2SAT 95
--- NOTE | 2021-03-14 17:07 | ED_ITS ---
HPI - Chest Pain General Chief Complaint: Chest Pain Stated Complaint: CHEST PAIN Time Seen by Provider: 03/14/21 16:07 Source: patient Mode of arrival: Ambulatory Limitations: no limitations History of Present Illness HPI narrative: 52-year-old female former smoker with history of hyperlipidemia, hypertension and anxiety presents with a chief complaint of some fluttering and palpitations in her chest prior to arrival. She states that she resolved her symptoms with deep breathing exercises. She denies any dizziness, weakness or lightheadedness. She denies any chest pressure, pain, heaviness. She has had no nausea, vomiting. She denies any unexplained diaphoresis. She has been seen recently for vomiting and low potassium. She denies any other change in diet, activity or medication MD complaint: other Onset (ago): hour(s) Duration: now resolved Severity: mild Quality: other Treatments prior to arrival chest pain: none Related Data Home Medications Medication Instructions Recorded Confirmed amitriptyline 25 mg PO HS #30 10/10/16 atorvastatin [Lipitor] 20 mg PO HS #30 10/10/16 bupropion HCl [Wellbutrin XL] 150 mg PO QDAY #30 10/10/16 diazepam [Valium] PO Q8HP PRN #45 10/10/16 duloxetine 60 mg PO QDAY #30 10/10/16 oxycodone-acetaminophen 0 tab PO Q4HP PRN #90 10/10/16 quetiapine [Seroquel] 200 mg PO HS #30 10/10/16 Previous Rx's Medication Instructions Recorded promethazine [Phenadoz] 12.5 mg [place] Q6HP PRN #5 supp 10/10/16 metoclopramide HCl [Reglan] 10 mg PO Q6H PRN #10 tab 03/10/21 Allergies Allergy/AdvReac Type Severity Reaction Status Date / Time methotrexate [METHOTREXATE] Allergy Unknown Verified 09/27/20 00:24 ondansetron Allergy Unknown HEADACHE Verified 09/27/20 00:24 [From ZOFRAN ( HYDROCHLORIDE)] Review of Systems Constitutional Constitutional: Denies chills, Denies fatigue, Denies fever(s), Denies frequent falls, Denies lethargy and Denies weakness Eyes Eyes: Denies change in vision, Denies eye discharge, Denies irritation and Denies loss of vision ENT Ears, Nose, Mouth, and Throat: Denies change in voice, Denies dizziness, Denies neck pain, Denies sore throat and Denies throat swelling Cardiovascular Cardiovascular: Denies chest pain, Denies irregular heart rhythm, Denies lightheadedness, Denies palpitations, Denies dyspnea, Denies dyspnea on exertion and Denies orthopnea Comments: Palpitations and fluttering Respiratory Respiratory: Denies cough, Denies dyspnea, Denies dyspnea on exertion and Denies wheezing Gastrointestinal Gastrointestinal: Denies abdominal pain, Denies change in bowel habits, Denies diarrhea, Denies nausea and Denies vomiting Musculoskeletal Musculoskeletal: Denies neck pain and Denies numbness Integumentary/Breasts Skin/Breast: Denies pruritus, Denies erythema, Denies rash and Denies wounds Neurologic Neurologic: Denies behavioral changes, Denies confusion, Denies dizziness, Denies frequent falls, Denies loss of vision, Denies numbness and Denies weakness Psychiatric Psychiatric: Denies anxiety, Denies behavioral changes, Denies confusion, Denies depression, Denies homicidal ideation and Denies suicidal ideation Endocrine Endocrine: Denies fatigue, Denies flushing and Denies palpitations Hematologic/Lymphatic Hematologic/Lymphatic: Denies easy bruising Allergic/Immunologic Allergic/Immunologic: Denies urticaria, Denies throat swelling and Denies wheezing Patient History Medical History Depression Diabetes Hyperlipidemia Hypertension Social History Smoking Status: Former smoker Smoking Status: Former smoker alcohol intake frequency: other Substance Use Type: marijuana Exam Narrative Exam Narrative: GENERAL: [60] year old patient appears stated age. Well- nourished, well-developed patient, in mild distress. HEAD: Atraumatic. Normocephalic. EYES: Pupils equal round and reactive. Extraocular motions intact. No scleral icterus. No injection or drainage. ENT: Nose without bleeding, purulent drainage. Throat without erythema, tonsillar hypertrophy or exudate. Airway patent. NECK: Trachea midline. Non tender CARDIOVASCULAR: Regular rate and rhythm without murmurs, gallops, or rubs. RESPIRATORY: Clear to auscultation. Breath sounds equal bilaterally. No wheezes, rales, or rhonchi. GASTROINTESTINAL: Abdomen soft, non-tender, nondistended. EXTREMITIES: No edema or joint tenderness. BACK: Nontender without deformity or crepitance. No flank tenderness. NEURO: AOx3. SKIN: No rash or erythema of visible areas Initial Vital Signs Initial Vital Signs: Vital Signs Temperature 98.9 F 03/14/21 16:00 Pulse Rate 84 03/14/21 16:00 Respiratory Rate 22 03/14/21 16:00 Blood Pressure 140/81 03/14/21 16:00 Pulse Oximetry 96 03/14/21 16:00 Course Orders Ordered: ED Orders 03/14/21 16:00 XR chest 1V Stat EKG-12 Lead Stat 03/14/21 16:15 BNP [NT-proBNP (BNP-Adult 18+)] Stat Complete Blood Count AUTO DIFF Stat Comprehensive Metabolic Panel Stat Lipase Stat Magnesium Stat Partial Thromboplastin Time Stat Prothrombin Time INR Stat Troponin & CK Cardiac Panel Stat 03/14/21 17:58 Troponin I Stat Vital Signs Vital signs: Vital Signs - 8 hr 03/14/21 16:00 03/14/21 16:56 03/14/21 17:00 Temperature 98.9 F Pulse Rate 84 82 73 Respiratory Rate 22 19 20 Blood Pressure 140/81 120/82 112/69 Pulse Oximetry 96 97 95 03/14/21 17:30 03/14/21 19:01 Temperature Pulse Rate 71 69 Respiratory Rate 25 H 16 Blood Pressure 115/63 112/64 Pulse Oximetry 96 99 MDM - Chest Pain Lab Data Result diagrams: 03/14/21 16:15 03/14/21 16:15 Labs: Lab Results 03/14/21 03/14/21 03/14/21 Range/Units 16:15 16:15 16:15 WBC 8.3 (4.5-11.0) X10^3/uL RBC 4.76 (4.0-5.2) X10^6/uL Hgb 13.2 (12.0-16.0) g/dL Hct 39.7 (36-46) % MCV 83.5 (80-100) fL MCH 27.8 (26-34) PG MCHC 33.3 (30-36) % RDW 16.8 H (11.6-14.8) % Plt Count 377 (150-400) X10^3/uL Neut % (Auto) 53.5 (50-75) % Lymph % (Auto) 34.3 (25-40) % [place] % (Auto) 8.2 (3-14) % Eos % (Auto) 2.9 (2-4) % Baso % (Auto) 1.1 (0-2) % Neut # (Auto) 4500 (1437-2205) /uL Lymph # (Auto) 2900 (9318-9105) /uL [place] # (Auto) 700 (0-900) /uL Eos # (Auto) 200 (0-450) /uL Baso # (Auto) 100 (0-100) /uL PT 11.8 (10.1-12.7) SECONDS INR 1.0 (0.9-1.3) APTT 33 (26.4-36.2) SECONDS Sodium 136 L (137-145) mmol/L Potassium 3.6 (3.4-5.1) mmol/L Chloride 100 (98-107) mmol/L Carbon Dioxide 27 (22-32) mmol/L BUN 12 (7-17) mg/dL Creatinine 0.78 (0.52-1.04) mg/dL Estimated GFR > 60.0 (>60) mL/min BUN/Creatinine Ratio 15.4 (6-22) Glucose 137 H D (70-100) mg/dL Calcium 9.7 (8.4-10.2) mg/dL Magnesium 1.7 (1.6-2.3) mg/dL Total Bilirubin 0.6 (0.2-1.3) mg/dL AST 22 (14-36) IU/L ALT 24 (<35) IU/L Alkaline Phosphatase 75 (38-126) U/L Total Creatine Kinase 36 (30-135) U/L CK-MB (CK-2) TNP CK-MB (CK-2) Rel Index TNP Troponin I < 0.012 (0.01-0.034) ng/mL NT-Pro-B Natriuret Pep (<125) pg/mL Total Protein 7.8 (6.3-8.2) g/dL Albumin 4.6 (3.5-5.0) g/dL Globulin 3.2 (1.7-4.1) g/dL Albumin/Globulin Ratio 1.4 (1.0-2.8) Lipase 63 (23-300) U/L 03/14/21 03/14/21 Range/Units 16:15 17:58 WBC (4.5-11.0) X10^3/uL RBC (4.0-5.2) X10^6/uL Hgb (12.0-16.0) g/dL Hct (36-46) % MCV (80-100) fL MCH (26-34) PG MCHC (30-36) % RDW (11.6-14.8) % Plt Count (150-400) X10^3/uL Neut % (Auto) (50-75) % Lymph % (Auto) (25-40) % [place] % (Auto) (3-14) % Eos % (Auto) (2-4) % Baso % (Auto) (0-2) % Neut # (Auto) (9980-5401) /uL Lymph # (Auto) (5944-1943) /uL [place] # (Auto) (0-900) /uL Eos # (Auto) (0-450) /uL Baso # (Auto) (0-100) /uL PT (10.1-12.7) SECONDS INR (0.9-1.3) APTT (26.4-36.2) SECONDS Sodium (137-145) mmol/L Potassium (3.4-5.1) mmol/L Chloride (98-107) mmol/L Carbon Dioxide (22-32) mmol/L BUN (7-17) mg/dL Creatinine (0.52-1.04) mg/dL Estimated GFR (>60) mL/min BUN/Creatinine Ratio (6-22) Glucose (70-100) mg/dL Calcium (8.4-10.2) mg/dL Magnesium (1.6-2.3) mg/dL Total Bilirubin (0.2-1.3) mg/dL AST (14-36) IU/L ALT (<35) IU/L Alkaline Phosphatase (38-126) U/L Total Creatine Kinase (30-135) U/L CK-MB (CK-2) CK-MB (CK-2) Rel Index Troponin I < 0.012 (0.01-0.034) ng/mL NT-Pro-B Natriuret Pep 28 (<125) pg/mL Total Protein (6.3-8.2) g/dL Albumin (3.5-5.0) g/dL Globulin (1.7-4.1) g/dL Albumin/Globulin Ratio (1.0-2.8) Lipase (23-300) U/L Imaging Data Chest x-ray: Radiologist's Impression: Cassandra Saavedra 60 F [address] [id number] ReportSigned Patient: Cassandra Saavedra AMR#: [id number]: 1960cct:[id number]/Sex: 60 / FDate of Service: 03/14/21Loc: EDAccession Number: [id number] Procedure: XR chest 1V Ordering Provider: Leeroy Giraldo D.O. PROCEDURE: XR CHEST 1V INDICATIONS: chest pain TECHNIQUE: One view of the chest was acquired. COMPARISON: None. FINDINGS: Surgical changes and devices: None. Lungs and pleura: Lungs are clear. No pleural effusions or pneumothorax. Mediastinum: Mediastinal contours appear normal. Heart size is normal. Bones and chest wall: No suspicious bony lesions. Overlying soft tissues appear unremarkable. IMPRESSION: No acute cardiopulmonary disease. Dictated by: Misha Garcia M.D. on 03/14/2021 at 16:22 Approved by: Misha Garcia M.D. on 03/14/2021 at 16:22 ECG Data Interpretation: EKG is normal sinus rhythm rate [ 80] and free of any signs of ischemia or ectopy. No ST segmental elevation or depression. No T wave inversions MDM Narrative Medical decision making narrative: Multiple etiologies for patient's symptoms considered including: [Palpitations versus electrolyte abnormality versus ischemia versus other] Patient's symptoms improved over duration of stay with above-stated therapies. Findings and discharge diagnosis discussed with patient/family followed by verbalization of understanding Return precautions discussed with patient/family whom verbalize understanding. Discharge Plan Departure Patient Disposition: Home Clinical Impression: Heart palpitations Activity Restrictions/Additional Instructions: *You have been diagnosed with [palpitations and fluttering, resolved] *What to do: *Take medications as directed *Follow up with your primary care provider in 2-3 days, call for an appointment. Let them know you were seen in the Emergency Department and that we ask that you be seen in follow up *Return to ER if you should have any new, worsening or concerning symptoms Prescriptions: No Action diazepam [Valium] 5 MG tablet PO Q8HP PRNQty: 45 RF: 0 duloxetine 60 MG capsule,delayed release(DR/EC) 60 mg PO QDAY Qty: 30 RF: 0 amitriptyline 25 MG tablet 25 mg PO HS Qty: 30 RF: 0 quetiapine [Seroquel] 200 MG tablet 200 mg PO HS Qty: 30 RF: 0 atorvastatin [Lipitor] 20 MG tablet 20 mg PO HS Qty: 30 RF: 0 bupropion HCl [Wellbutrin XL] 150 MG tablet extended release 24 hr 150 mg PO QDAY Qty: 30 RF: 0 oxycodone-acetaminophen 5 MG/325 MG tablet 0 tab PO Q4HP PRNQty: 90 RF: 0 promethazine [Phenadoz] 12.5 MG suppository 12.5 mg AK Q6HP PRNQty: 5 RF: 0 metoclopramide HCl [Reglan] 10 mg tablet 10 mg PO Q6H PRN (Reason: nausea and vomiting) Qty: 10 RF: 0 Referrals: Sukh Augustin MD [Primary Care Provider] -
[2021-03-14 17:30] VITALS: BP 115/63; PULSE 71; RESP 25; O2SAT 96
[2021-03-14 18:35] LABS: Troponin I < 0.012 ng/mL (0.01-0.034)
[2021-03-14 19:01] VITALS: BP 112/64; PULSE 69; RESP 16; O2SAT 99
== END 2021-03-14 19:01 | disposition home or self-care (01) ==
PROVIDERS: Emergency Provider Emergency Medicine; PCP Family Medicine
DX: R00.2 Palpitations (principal)
CPT/HCPCS: 36415; 71045; 80053; 82550; 83690; 83735; 83880; 84484; 85025; 85610; 85730; 93005; 93010; 99283; 99284

== ENCOUNTER 2021-05-15 12:53 | Emergency (ER) | payer MEDICARE, SELFPAY ==
[2021-05-15 13:05] VITALS: BP 204/109; PULSE 82; RESP 18; TEMP 36.4; O2SAT 98; BMI 32.5
[2021-05-15] MEDS: SODIUM CHLORIDE 0.9% 1,000 ML 1000 ML IV (14:19)
--- NOTE | 2021-05-15 14:20 | ED.ABDPAIN ---
HPI - Abdominal Pain General Chief Complaint: Abdominal Pain Stated Complaint: chronic N/V/Dry heaves Time Seen by Provider: 05/15/21 14:15 Source: patient Mode of arrival: EMS Limitations: no limitations History of Present Illness HPI narrative: 52-year-old female former smoker with history of hyperlipidemia, hypertension, anxiety, frequent episodes of nausea vomiting and abdominal pain presents with a chief complaint of about 24 hours of nausea and vomiting. She has become a bit fatigued, dizzy weak and lightheaded. She denies fever or chills. She denies much in the way of abdominal pain but does have small amount of cramping that seems to be relieved by vomiting. She denies any new medications or dietary change. She denies constipation, diarrhea or urinary complaints such as dysuria, frequency or urgency MD complaint: other Onset (ago): hour(s) Pain Consistency: intermittent Location: diffuse Quality: cramping Relieving factors: vomiting Associated symptoms: nausea and vomiting Related Data Home Medications Medication Instructions Recorded Confirmed amitriptyline 25 mg PO HS #30 10/10/16 atorvastatin [Lipitor] 20 mg PO HS #30 10/10/16 bupropion HCl [Wellbutrin XL] 150 mg PO QDAY #30 10/10/16 diazepam [Valium] PO Q8HP PRN #45 10/10/16 duloxetine 60 mg PO QDAY #30 10/10/16 oxycodone-acetaminophen 0 tab PO Q4HP PRN #90 10/10/16 quetiapine [Seroquel] 200 mg PO HS #30 10/10/16 Previous Rx's Medication Instructions Recorded promethazine [Phenadoz] 12.5 mg RI Q6HP PRN #5 supp 10/10/16 metoclopramide HCl [Reglan] 10 mg PO Q6H PRN #10 tab 03/10/21 Allergies Allergy/AdvReac Type Severity Reaction Status Date / Time methotrexate [METHOTREXATE] Allergy Unknown Verified 05/15/21 13:05 ondansetron AdvReac Unknown HEADACHE Verified 05/15/21 14:03 [From ZOFRAN ( HYDROCHLORIDE)] Review of Systems Constitutional Constitutional: Denies chills, Denies fatigue, Denies fever(s), Denies frequent falls, Denies lethargy and Denies weakness Eyes Eyes: Denies change in vision, Denies eye discharge, Denies irritation and Denies loss of vision ENT Ears, Nose, Mouth, and Throat: Denies change in voice, Denies dizziness, Denies neck pain, Denies sore throat and Denies throat swelling Cardiovascular Cardiovascular: Denies chest pain, Denies irregular heart rhythm, Denies lightheadedness, Denies palpitations, Denies dyspnea, Denies dyspnea on exertion and Denies orthopnea Respiratory Respiratory: Denies cough, Denies dyspnea, Denies dyspnea on exertion and Denies wheezing Gastrointestinal Gastrointestinal: Denies abdominal pain, Denies change in bowel habits, Denies diarrhea, Reports nausea and Reports vomiting Musculoskeletal Musculoskeletal: Denies neck pain and Denies numbness Integumentary/Breasts Skin/Breast: Denies pruritus, Denies erythema, Denies rash and Denies wounds Neurologic Neurologic: Denies behavioral changes, Denies confusion, Denies dizziness, Denies frequent falls, Denies loss of vision, Denies numbness and Denies weakness Psychiatric Psychiatric: Reports anxiety, Denies behavioral changes, Denies confusion, Denies depression, Denies homicidal ideation and Denies suicidal ideation Endocrine Endocrine: Denies fatigue, Denies flushing and Denies palpitations Hematologic/Lymphatic Hematologic/Lymphatic: Denies easy bruising Allergic/Immunologic Allergic/Immunologic: Denies urticaria, Denies throat swelling and Denies wheezing Patient History Medical History Depression Diabetes Hyperlipidemia Hypertension Social History Smoking Status: Former smoker Smoking Status: Former smoker alcohol intake frequency: other Substance Use Type: marijuana Exam Narrative Exam Narrative: GENERAL: [60] year old patient appears stated age. Well-developed patient, in mild distress. Anxious, actively vomiting HEAD: Atraumatic. Normocephalic. EYES: Pupils equal round and reactive. Extraocular motions intact. No scleral icterus. No injection or drainage. ENT: Nose without bleeding, purulent drainage. Throat without erythema, tonsillar hypertrophy or exudate. Airway patent. NECK: Trachea midline. Non tender CARDIOVASCULAR: Regular rate and rhythm without murmurs, gallops, or rubs. RESPIRATORY: Clear to auscultation. Breath sounds equal bilaterally. No wheezes, rales, or rhonchi. GASTROINTESTINAL: Abdomen soft, non-tender, nondistended. Bowel sounds present in all 4 quadrants EXTREMITIES: No edema or joint tenderness. BACK: Nontender without deformity or crepitance. No flank tenderness. NEURO: AOx3. SKIN: No rash or erythema of visible areas Initial Vital Signs Initial Vital Signs: Vital Signs Temperature 97.5 F L 05/15/21 13:05 Pulse Rate 82 05/15/21 13:05 Respiratory Rate 18 05/15/21 13:05 Blood Pressure 204/109 H 05/15/21 13:05 Pulse Oximetry 98 05/15/21 13:05 Course Orders Ordered: Discontinued Medications Diphenhydramine HCl (Diphenhydramine 50 Mg/Ml Vial) 25 mg IV NOW ONE Stop: 05/15/21 14:24 Last Admin: 05/15/21 14:31 Dose: 25 mg Documented by: [email or web address] Sodium Chloride (Normal Saline 0.9%) 1,000 mls @ 1,000 mls/hr IV BOLUS ONE Stop: 05/15/21 14:57 Last Infusion: 05/15/21 16:15 Dose: 0 mls/hr Documented by: Admin: 05/15/21 14:19 Dose: 1,000 mls/hr Documented by: [email or web address] Lorazepam (Lorazepam 2 Mg/Ml Inj) 0.5 mg IV NOW ONE Stop: 05/15/21 16:04 Last Admin: 05/15/21 16:15 Dose: 0.5 mg Documented by: CODY Metoclopramide HCl (Metoclopramide 10 Mg/2 Ml Inj) 10 mg IV NOW ONE Stop: 05/15/21 14:24 Last Admin: 05/15/21 14:32 Dose: 10 mg Documented by: [email or web address] Reevaluation(s) Reevaluation #1: patient no longer vomiting, feeling much better. Vital Signs Vital signs: Vital Signs - 8 hr 05/15/21 13:05 Temperature 97.5 F L Pulse Rate 82 Respiratory Rate 18 Blood Pressure 204/109 H Pulse Oximetry 98 MDM - Abdominal Pain Lab Data Result diagrams: 05/15/21 14:25 05/15/21 14:25 Labs: Lab Results 05/15/21 05/15/21 Range/Units 14:25 14:25 WBC 9.0 (4.5-11.0) X10^3/uL RBC 4.42 (4.0-5.2) X10^6/uL Hgb 12.6 (12.0-16.0) g/dL Hct 37.6 (36-46) % MCV 85.1 (80-100) fL MCH 28.5 (26-34) PG MCHC 33.5 (30-36) % RDW 15.0 H (11.6-14.8) % Plt Count 337 (150-400) X10^3/uL Neut % (Auto) 81.5 H (50-75) % Lymph % (Auto) 13.1 L (25-40) % [place] % (Auto) 4.7 (3-14) % Eos % (Auto) 0.1 L (2-4) % Baso % (Auto) 0.6 (0-2) % Neut # (Auto) 7400 H (0126-6365) /uL Lymph # (Auto) 1200 (3679-6785) /uL [place] # (Auto) 400 (0-900) /uL Eos # (Auto) 0 (0-450) /uL Baso # (Auto) 100 (0-100) /uL Sodium 136 L (137-145) mmol/L Potassium 3.3 L (3.4-5.1) mmol/L Chloride 101 (98-107) mmol/L Carbon Dioxide 23 (22-32) mmol/L BUN 11 (7-17) mg/dL Creatinine 0.63 (0.52-1.04) mg/dL Estimated GFR > 60.0 (>60) mL/min BUN/Creatinine Ratio 17.5 (6-22) Glucose 200 H (70-100) mg/dL Calcium 9.3 (8.4-10.2) mg/dL Total Bilirubin 0.5 (0.2-1.3) mg/dL AST 21 (14-36) IU/L ALT 24 (<35) IU/L Alkaline Phosphatase 73 (38-126) U/L Total Protein 7.4 (6.3-8.2) g/dL Albumin 4.4 (3.5-5.0) g/dL Globulin 3.0 (1.7-4.1) g/dL Albumin/Globulin Ratio 1.5 (1.0-2.8) Lipase 61 (23-300) U/L Point of care testing: Urine Dip Bedside Urine Glucose 100 mg/dl Bedside Urine Bilirubin - Negative Bedside Urine Ketone - Negative Urine Specific [place] 1.030 Bedside Urine Occult Blood - Negative Bedside Urine pH 6.0 Bedside Urine Protein +/- 15 Bedside Urine Urobilinogen - Negative Bedside Urine Nitrite - Negative Bedside Urine Leukocytes - Negative Esterase Discharge Plan Departure Patient Disposition: Home Clinical Impression: Vomiting Qualifiers: Vomiting type: unspecified Vomiting Intractability: non-intractable Nausea presence: without nausea Qualified Code(s): R11.11 - Vomiting without nausea Instructions: DI for Vomiting -- Adult Activity Restrictions/Additional Instructions: *You have been diagnosed with [vomiting] *What to do: *Please continue to take your regular medications as directed. [ ] New medication prescriptions sent to your pharmacy: [ ] [ ] New medication written as a paper prescription [x ] No new medications given *Please follow up with your primary care provider in 2-3 days, call for an appointment. Let them know you were seen in the Emergency Department and that we ask that you be seen in follow up. We will electronically transmit a record of today's note if your PCP is in our system *If you do not have a primary care provider please contact the [facility] Resource line at [phone]. They will ask some questions about your medical history and help get you set up with a doctor in the community. *Return to Emergency Department if you should have any new, worsening or concerning symptoms, such as [fever greater than 101 F, shaking chills, worsening pain, persistent vomiting or other bothersome symptoms] Prescriptions: No Action diazepam [Valium] 5 MG tablet PO Q8HP PRNQty: 45 RF: 0 duloxetine 60 MG capsule,delayed release(DR/EC) 60 mg PO QDAY Qty: 30 RF: 0 amitriptyline 25 MG tablet 25 mg PO HS Qty: 30 RF: 0 quetiapine [Seroquel] 200 MG tablet 200 mg PO HS Qty: 30 RF: 0 atorvastatin [Lipitor] 20 MG tablet 20 mg PO HS Qty: 30 RF: 0 bupropion HCl [Wellbutrin XL] 150 MG tablet extended release 24 hr 150 mg PO QDAY Qty: 30 RF: 0 oxycodone-acetaminophen 5 MG/325 MG tablet 0 tab PO Q4HP PRNQty: 90 RF: 0 promethazine [Phenadoz] 12.5 MG suppository 12.5 mg RI Q6HP PRNQty: 5 RF: 0 metoclopramide HCl [Reglan] 10 mg tablet 10 mg PO Q6H PRN (Reason: nausea and vomiting) Qty: 10 RF: 0 Referrals: Sukh Augustin MD [Primary Care Provider] -
[2021-05-15] MEDS: diphenhydrAMINE 50 MG/ML VIAL 25 MG IV (14:31)
[2021-05-15] MEDS: METOCLOPRAMIDE 10 MG/2 ML INJ IV (14:32)
[2021-05-15 14:34] LABS: Add Manual Diff / Slide Review NO; Basophils Absolute Auto 100 /uL (0-100); Basophils Percent Auto 0.6 % (0-2); Eosinophils Absolute Auto 0 /uL (0-450); Eosinophils Percent Auto 0.1 % (2-4); Hematocrit 37.6 % (36-46); Hemoglobin 12.6 g/dL (12.0-16.0); Lymphocytes Absolute Auto 1200 /uL (1100-4500); Lymphocytes Percent Auto 13.1 % (25-40); Mean Corpuscular HGB Conc 33.5 % (30-36); Mean Corpuscular Hemoglobin 28.5 PG (26-34); Mean Corpuscular Volume 85.1 fL (80-100); Monocytes Absolute Auto 400 /uL (0-900); Monocytes Percent Auto 4.7 % (3-14); Neutrophils Absolute Auto 7400 /uL (1500-7000); Neutrophils Percent Auto 81.5 % (50-75); Platelet Count 337 X10^3/uL (150-400); Red Blood Cell Count 4.42 X10^6/uL (4.0-5.2)
[2021-05-15 14:52] LABS: Alanine Aminotransferase 24 IU/L (<35); Albumin 4.4 g/dL (3.5-5.0); Albumin Globulin Ratio 1.5 (1.0-2.8); Alkaline Phosphatase 73 U/L (38-126); Aspartate Aminotransferase 21 IU/L (14-36); BUN Creatinine Ratio 17.5 (6-22); Bilirubin Total 0.5 mg/dL (0.2-1.3); Blood Urea Nitrogen 11 mg/dL (7-17); Calcium 9.3 mg/dL (8.4-10.2); Carbon Dioxide 23 mmol/L (22-32); Chloride 101 mmol/L (98-107); Estimated Glomerular Filt Rate > 60.0 mL/min (>60); Glucose 200 mg/dL (70-100); HEMOLYSIS < 15 (0-50); Lipase 61 U/L (23-300); Potassium 3.3 mmol/L (3.4-5.1); Sodium 136 mmol/L (137-145); Total Protein 7.4 g/dL (6.3-8.2)
[2021-05-15] MEDS: LORazepam 2 MG/ML INJ 0.5 MG IV (16:15)
[2021-05-15 16:28] VITALS: BP 174/90; PULSE 76; RESP 16; O2SAT 99
[2021-05-15 17:15] VITALS: BP 138/78; PULSE 80; RESP 18; TEMP 37.3; O2SAT 99
[2021-05-15 18:15] VITALS: BP 158/80; PULSE 80; RESP 16; O2SAT 98
--- NOTE | 2021-05-15 18:27 | PC.NURSE ---
Pt states she has dry heaves whenever she moves. Has tolerated ice chips. [place]/warm/dry. Pt very angry that she is being discharged you have not made me feel fully better. Has phenergan at home. Reviewed w/ Dr. Lundberg who reinforced discharge order. Encouraged pt to follow up as needed and indicated and return for any needs, concerns, worsening of symptoms.
== END 2021-05-15 18:31 | disposition home or self-care (01) ==
PROVIDERS: Emergency Medicine; Emergency Provider Emergency Medicine; PCP Family Medicine
DX: R11.11 Vomiting without nausea (principal); R10.9 Unspecified abdominal pain
CPT/HCPCS: 80053; 81003; 83690; 85025; 96361; 96374; 96375; 99283; 99284; J1200; J2060; J2765

== ENCOUNTER → 2021-09-19 14:40 | Outpatient (CLI) | payer MEDICARE, MEDICAID, SELFPAY ==
--- NOTE | 2021-09-19 | DI.CT.S_ITS ---
PROCEDURE: CT THORACIC SPINE WO CON INDICATIONS: lumbar and thoracic pain TECHNIQUE: Noncontrast 3 mm thick sections acquired through the region of interest in the thoracic spine. Sagittal and coronal reformats were then constructed. For radiation dose reduction, the following was used: automated exposure control. COMPARISON: [facility], CR, XR LUMBAR SPINE 2 OR 3 VIEWS, 07/24/2021, 13:36. [facility], CT, CT LUMBAR SPINE WO CON, 09/19/2021, 15:19. FINDINGS: Image quality: Excellent. Bones: No acute vertebral body compression fractures. Several midthoracic anterior wedge deformities are seen, with associated accentuated thoracic kyphosis. Several levels of bridging anterior osteophytes are seen, primarily on the right side. No suspicious sclerotic or lytic bony lesions. Central spinal canal is of normal overall caliber. Minimal dextroconvex scoliotic curvature can be seen. Soft tissues: No paravertebral masses or hematomas. Visualized posteromedial lungs appear clear. IMPRESSION: No acute abnormalities can be seen. Several levels of thoracic spine anterior wedge deformity can be seen, with associated accentuated thoracic kyphosis. Dictated by: Toy Campbell M.D. on 09/19/2021 at 15:44 Approved by: Toy Campbell M.D. on 09/19/2021 at 15:46
--- NOTE | 2021-09-19 | DI.CT.S_ITS ---
PROCEDURE: CT LUMBAR SPINE WO CON INDICATIONS: lumbar and thoracic pain TECHNIQUE: Noncontrast 3 mm thick sections acquired from the T12 level to the sacrum. Sagittal and coronal reformats were constructed. For radiation dose reduction, the following was used: automated exposure control. COMPARISON: [facility], CR, SPINE LUMB 2 OR 3VW, 10/09/2012, 18:35. [facility], CT, CT THORACIC SPINE WO CON, 09/19/2021, 15:19. [facility], CR, XR LUMBAR SPINE 2 OR 3 VIEWS, 07/24/2021, 13:36. [facility], CT, L-SPINE W/CONTRAST, 04/21/2012, 10:57. FINDINGS: Image quality: There is artifact associated with the metallic hardware. Bones: No acute vertebral body compression fractures. No suspicious lytic or blastic bony lesions. No pars defects. Postoperative changes are seen posteriorly, with fusion hardware spanning L3 through L5. On the prior plain film study dated 07/24/2021, there is discontinuity seen along the L3 level of the hardware. This discontinuity is not well seen on these CT images. A degree of vertebral body fusion can be seen anteriorly at the L4-L5 level. There has been removal of portions of the posterior elements. There is minimal retrolisthesis seen at the L5-S1 level. T12-L1: Calcification/ossification can be seen along the posterior aspect of the annulus fibrosus. No significant neural foraminal or central canal narrowing can be seen. L1-L2: The disc height is relatively well preserved. Endplate irregularity and sclerosis can be seen. No significant neural foraminal or central canal narrowing can be seen. L2-L3: No significant abnormality is seen. L3-L4: The disc height is well preserved. Moderate disc bulge is seen, with a central disc protrusion. At least moderate facet hypertrophy can be seen. No significant neural foraminal narrowing can be seen. Likely mild central canal narrowing. The degree of central canal narrowing is believed to be progressed compared to 2012. L4-L5: Vertebral body fusion can be seen at this level. No significant neural foraminal narrowing can be seen. The central canal is widely patent. When comparison is made with the prior images, these findings are similar. L5-S1: At least moderate loss of disc height is seen. Vacuum disc phenomenon is seen at this level. Endplate irregularity and sclerosis can be seen. There is at least moderate bilateral neural foraminal narrowing seen at this level. There is a degree of compression seen upon the exiting nerve roots. Mild to moderate central canal narrowing is seen. These imaging findings have progressed compared to the prior study. Soft tissues: No retroperitoneal masses or hematomas. Visualized aorta is normal in caliber. A bone growth stimulator can be seen posteriorly. IMPRESSION: L3 through L5 postoperative hardware. On the prior recent plain film study, discontinuity can be seen at the L3 level of the hardware. However, this is not seen on the current study. Degenerative changes are seen, which are worst at L5-S1. The degenerative changes have overall mildly progressed at L3-L4 and L5-S1 compared to 2012. Dictated by: Toy Campbell M.D. on 09/19/2021 at 15:23 Approved by: Toy Campbell M.D. on 09/19/2021 at 15:28
== END ==
PROVIDERS: PCP Family Medicine; Referring Provider Orthopaedic Surgery; Visit Provider Orthopaedic Surgery
DX: M54.6 Pain in thoracic spine (principal); M54.50 Low back pain, unspecified; M47.817 Spondylosis without myelopathy or radiculopathy, lumbosacral region; M47.816 Spondylosis without myelopathy or radiculopathy, lumbar region; M40.204 Unspecified kyphosis, thoracic region; Z98.1 Arthrodesis status
CPT/HCPCS: 72128; 72131

== ENCOUNTER → 2022-01-15 16:56 | Outpatient (CLI) | payer MEDICARE, MEDICAID, SELFPAY ==
[2022-01-15 18:13] LABS: Alanine Aminotransferase 32 IU/L (<35); Albumin 4.8 g/dL (3.5-5.0); Albumin Globulin Ratio 1.8 (1.0-2.8); Alkaline Phosphatase 60 U/L (38-126); Aspartate Aminotransferase 22 IU/L (14-36); BUN Creatinine Ratio 17.6 (6-22); Bilirubin Total 0.6 mg/dL (0.2-1.3); Blood Urea Nitrogen 15 mg/dL (7-17); Carbon Dioxide 29 mmol/L (22-32); Chloride 102 mmol/L (98-107); Cholesterol 170 mg/dL (140-199); Estimated Glomerular Filt Rate > 60.0 mL/min (>60); Globulin 2.7 g/dL (1.7-4.1); Glucose 121 mg/dL (70-100); HDL Cholesterol 85 mg/dL (40-60); HEMOLYSIS < 15 (0-50); LDL Cholesterol Calculated 61 mg/dL (<100); Potassium 4.2 mmol/L (3.4-5.1); Sodium 138 mmol/L (137-145); Total Protein 7.5 g/dL (6.3-8.2); Triglycerides 121 mg/dL (35-150)
[2022-01-15 18:31] LABS: Hemoglobin A1C% w Est Avg Glu 7.2 % (4.0-6.0)
== END ==
PROVIDERS: PCP Family Medicine; Referring Provider Family Medicine; Visit Provider Family Medicine
DX: E11.9 Type 2 diabetes mellitus without complications (principal)
CPT/HCPCS: 36415; 80053; 80061; 83036

== ENCOUNTER → 2022-05-24 13:02 | Outpatient (CLI) | payer MEDICARE, MEDICAID, SELFPAY ==
--- NOTE | 2022-05-29 18:37 | DIAB.MNT ---
Initial Diabetes Medical Nutrition Therapy Assessment Name: Cassandra Saavedra Date: 05/24/22 Time: 110-210p Dx: Type II Diabetes Provider: Lazarodayanna Cassandra presents for initial visit regarding T2DM. States she has had Dm for 4 years. Reports FH of DM with most women in her family including mother and both grandmothers. Reports food security as a barrier. Receives EBT and social security disability. Struggles with food choices as well due to not having teeth. Reports dentist removed most teeth. Dentist wanted to pull all but she was not sure what to eat if she did not have any teeth. States she cannot afford dentures. Current diet is mostly soft foods. Limited veggies. Diet Recall: 4-5p: soup 8-10p: fish and chips or steak or grilled cheese or bryant and cheese burrito 11-12: cheese puff snacks Anthropometrics: Ht: 64 Wt: 205# Physical Activity: Limited due to back injury/ pain. Can walk for 5 min. Does not like swimming. has a walking stick. Self-Monitoring Blood Glucose: None. Has supplies. Scared of finger pricking. Diabetes Medications: Metformin 1000 mg BID Pertinent Labs: b HgA1c 7.2% 01/23 Past Medical History: (Last Reviewed 05/15/21 @ 14:23 by Leeroy Giraldo DO) Depression Diabetes Hyperlipidemia Hypertension Nutrition Rx: Plate Method Nutrition Diagnosis: - Nutrition and food related knowledge deficit r/t no previous MNT aeb pt report - Difficulty eating r/t missing teeth aeb pt report - Inadequate fiber intake r/t limited whole grains and veggies r/t limited teeth and unsure what to eat Intervention: This participant was very receptive. Provided appropriate educational handouts. Discussed the following topics: Completed intake assessment. Discussed barriers to care. Importance of self-monitoring if she is open to it. Enc her to bring supplies next visit. Plate Method, impact of macronutrients on blood sugar, meal timing Recommended servings for carbohydrates at meals and snacks Role of physical activity and following provider guidelines for safety Food insecurity resources Soft foods MNT Created SMART goals for patient self-care and success. Goals: Try frozen veggies Keep carbs to 1 cup Try skagit gleaners Follow-up: LAM HERNANDEZ follow-up in 3 weeks for DSME nutrition class Aniyah Conti RDN, [facility] Certified Diabetes Care and Top Bottom Attaching Machine Operator P: [phone] Thank you for this referral
== END ==
PROVIDERS: PCP Family Medicine; Referring Provider Family Medicine; Visit Provider Family Medicine
DX: E11.9 Type 2 diabetes mellitus without complications (principal); Z79.84 Long term (current) use of oral hypoglycemic drugs; Z71.3 Dietary counseling and surveillance
CPT/HCPCS: 97802

== ENCOUNTER → 2022-06-12 09:31 | Outpatient (CLI) | payer MEDICARE, MEDICAID, SELFPAY ==
--- NOTE | 2022-06-12 15:56 | DIAB.FU ---
Diabetes Education Class Series: Diabetes and Nutrition Name: Cassandra Saavedra Date: 06/12/22 Time: [id number] Cassandra reports she has been trying to be more responsible with her diabetes, eating better, and increasing exercise. Class topics covered: ? Debunk nutrition myths and discuss how to sustain healthy eating long-term through moderation and variety ? Define macronutrients and determine their impact on blood sugars ? Discuss macronutrient pairing, Plate Method, and carb counting ? Review general recommendations for carbohydrates ? Practice label reading ? Discuss the role of fiber in diabetes and provide examples of sources ? Review heart health nutrition: fats, fiber, and sodium ? Determine recommendations for grocery shopping and eating out ? Discuss alcohol recommendations ? Review the role of substitute sugars in diabetes management ? Set SMART goals Goal Set: Eat veggies 4-5 days per week for one meal ; walk for 10 min 3-4 x per week Follow-up: Diabetes Physiology and Medication Class in one week Aniyah Conti RDN, [facility] Certified Diabetes Care and Engine Repairer Production P: [phone] Thank you for this referral
== END ==
PROVIDERS: PCP Family Medicine; Referring Provider Family Medicine; Visit Provider Family Medicine
DX: E11.9 Type 2 diabetes mellitus without complications (principal); Z71.3 Dietary counseling and surveillance
CPT/HCPCS: G0109

== ENCOUNTER → 2022-06-19 09:27 | Outpatient (CLI) | payer MEDICARE, MEDICAID, SELFPAY ==
--- NOTE | 2022-06-20 17:29 | DIAB.FU ---
Diabetes Education Class Series: Diabetes Physiology and Medications Name: Cassandra Saavedra Date: 06/19/22 Time: [id number] Cassandra reports she has been trying more soft vegetables. Still struggles with dentition and finding healthy foods she can chew. Class topics covered: ? Diabetes pathophysiology ? Discuss different types of diabetes ? Review criteria for diagnosing diabetes ? Review HgA1c measurement and associated blood sugars ? Review blood sugar monitoring safety, technique, and goals ? Discuss ways to reduce complications associated with diabetes, includes microvascular and macrovascular complications ? Review diabetes medications types, action, and side effects ? Health care visits recommended for people with T2DM ? Immunization recommended for people with T2DM ? SMART goals review Follow-up: Diabetes Lifestyle and Ongoing Support Class next week Aniyah Conti RDN, [facility] Certified Diabetes Care and Engineering Officer P: [phone] Thank you for this referral
== END ==
PROVIDERS: PCP Family Medicine; Referring Provider Family Medicine; Visit Provider Family Medicine
DX: E11.9 Type 2 diabetes mellitus without complications (principal); Z71.3 Dietary counseling and surveillance
CPT/HCPCS: G0109

== ENCOUNTER → 2022-06-26 09:31 | Outpatient (CLI) | payer MEDICARE, MEDICAID, SELFPAY ==
--- NOTE | 2022-06-28 14:30 | DIAB.FU ---
Addendum entered by Aniyah Conti 06/28/22 14:38: Time [id number] Original Note: Diabetes Education Class Series: Diabetes Lifestyle Change and Ongoing Support Name: Cassandra Saavedra Date: 06/26/22 Time: [id number] Cassandra reports she continues to work on nutrition. She is looking forward to some 1:1 visits to meal plan. Reports she has a h/o weight lifting and going to the gym but back issues have been a barrier. States she may be able to incorporate walks in short duration. Class topics covered: ? Discuss the difference between physical activity and exercise ? Determine physical activity benefits and impact on diabetes ? Review physical activity recommendations and safety ? Discuss emergency preparedness ? Discuss diabetes and emotions (diabetes burnout/distress) ? Review and practice stress management techniques ? Review support groups and community resources ? Discuss the role of family support in diabetes care ? What is going well? Challenges of diabetes? ? Set SMART goals Follow-up: 1:1 visit follow-up scheduled for this week, though she reports she will have to r/s. Rec follow-up in 2-4 weeks. Aniyah Conti RDN, [facility] Certified Diabetes Care and Fitting Room Inspector P: [phone] Thank you for this referral
== END ==
PROVIDERS: PCP Family Medicine; Referring Provider Family Medicine; Visit Provider Family Medicine
DX: E11.9 Type 2 diabetes mellitus without complications (principal); Z71.3 Dietary counseling and surveillance
CPT/HCPCS: G0109

== ENCOUNTER → 2022-07-10 10:46 | Outpatient (CLI) | payer MEDICARE, MEDICAID, SELFPAY ==
--- NOTE | 2022-07-19 10:45 | DIAB.MNTFU ---
Follow-up Diabetes Medical Nutrition Therapy Assessment Name: Cassandra Saavedra Date: 07/10/22 Time: 11a-1220p Dx: Type II Diabetes Mercedes presents for follow-up DM visit post DSME classes. States she has tried to be more active. Reports trying frozen veggies as discussed previously. Has also been eating more soft fish lately. Today she would like to brainstorm some meal planning due to poor dentition. Additionally, she would like to learn how to use her glucose meter. Cassandra shares quite a bit of social concerns today. She has transportation concerns with her care. This impacts her ability to hand picker her medication. She likes her pharmacy in [facility]. Feels they are reliable and personable, but the distance is an issue with an unreliable car she tells me. Last Diet Recall: 4-5p: soup 8-10p: fish and chips or steak or grilled cheese or bryant and cheese burrito 11-12: cheese puff snacks Anthropometrics: Ht: 64 Wt: 205# Physical Activity: Limited due to back injury/ pain. Can walk for 5 min. Does not like swimming. has a walking sticks. Interested in walking on [place] due to frequent places to sit. May reach out to DSME classmate to go on walks together. Self-Monitoring Blood Glucose: None. Has supplies. Scared of finger pricking. Brought meter today, but all of her supples are . Instructed her on use, she completed a return demo. Encouraged her to call provider for updated supplies. BG today with strips was 174 mg/dL fasting. Diabetes Medications: Metformin 1000 mg BID Pertinent Labs: b HgA1c 7.2% 01/23 Past Medical History: (Last Reviewed 05/15/21 @ 14:23 by Leeroy Giraldo DO) Depression Diabetes Hyperlipidemia Hypertension Nutrition Rx: Carbohydrates: Meal: 30-45g Snack:15-30g Nutrition Diagnosis: - Nutrition and food related knowledge deficit r/t no previous MNT aeb pt report- improved - Difficulty eating r/t missing teeth aeb pt report - Inadequate fiber intake r/t limited whole grains and veggies r/t limited teeth and unsure what to eat Intervention: This participant was very receptive. Provided appropriate educational handouts. Discussed the following topics: SMBG instruction and return demo SMBG goals and checking 1-2 x per day once new supplies are received List of soft proteins, veggies, and whole grains Option for home delivery pharmacy via Medicare Meal planning and carb counting review Physical activity plan and progress Created SMART goals for patient self-care and success. Goals: Try frozen veggies- met Keep carbs to 1 cup- in progress Try skagit gleaners - not met Try using walking sticks on commercial- new As provider for new meter and supplies- new Try meal plan ideas discussed- new Follow-up: LAM HERNANDEZ follow-up in 2-3 weeks Aniyah Conti RDN, [facility] Certified Diabetes Care and Pearl Hand P: [phone] Thank you for this referral
== END ==
PROVIDERS: PCP Family Medicine; Referring Provider Family Medicine; Visit Provider Family Medicine
DX: E11.9 Type 2 diabetes mellitus without complications (principal); Z71.3 Dietary counseling and surveillance; Z79.84 Long term (current) use of oral hypoglycemic drugs
CPT/HCPCS: 97803

== ENCOUNTER → 2022-09-05 14:31 | Outpatient (CLI) | payer MEDICARE, MEDICAID, SELFPAY ==
--- NOTE | 2022-09-25 16:55 | DIAB.FU ---
Follow-up Diabetes Education Assessment Name: Cassandra Saavedra Date: 09/05/22 Time: 240-320p Dx: Type II Diabetes Cassandra presents for DM follow-up. Reports concerns about food security since SNAP benefit has been reduced drastically. Has never used food morrell before. Seems not comfortable with this resource. States she is very good with coupons. Have provided gleaners coupon before, but she reports difficulty with transportation to get there. States she sometimes feels like she is sleeping her life away. Having car trouble. States she is being more carb conscious. Reports more veggie intake recently. Been cutting veggies small and steaming so they are soft. Tried cheesy riced veggies, did not like. Reports provider d/c'd glipizide. Currently taking Metofmrin 1000mg BID. Physical Activity: No program Self-Monitoring Blood Glucose: No SMBG currently. Diabetes Medications: Metformin 1000 mg BID Pertinent Labs: 06/29/22: 7.3% ; average BG 163 mg/dL Past Medical History: (Last Reviewed 05/15/21 @ 14:23 by Leeroy Giraldo DO) Depression Diabetes Hyperlipidemia Hypertension Intervention: This participant was very receptive. Provided appropriate educational handouts. Discussed the following topics: Vegetable ideas she can eat food security concerns and options importance of SMBG Created SMART goals for patient self-care and success. Goals: Try using walking sticks on commercial- not met As provider for new meter and supplies- met Try meal plan ideas discussed- in progress Get plain riced veggies- new Check FBG daily and bring next visit- new Follow-up: LAM HERNANDEZ follow-up in 4 weeks Aniyah Conti RDN, [facility] Certified Diabetes Care and Allergist P: [phone] Thank you for this referral
== END ==
PROVIDERS: PCP Family Medicine; Referring Provider Family Medicine; Visit Provider Family Medicine
DX: E11.9 Type 2 diabetes mellitus without complications (principal); Z79.84 Long term (current) use of oral hypoglycemic drugs; Z71.3 Dietary counseling and surveillance
CPT/HCPCS: G0108

== ENCOUNTER → 2022-11-22 12:58 | Outpatient (CLI) | payer MEDICARE, MEDICAID, SELFPAY ==
--- NOTE | 2022-11-23 16:57 | DIAB.MNTFU ---
Follow-up Diabetes Medical Nutrition Therapy Assessment Name: Cassandra Saavedra Date: 11/22/22 Time: 1-145p Dx: Type II Diabetes Cassandra presents for follow-up. States riced vegetables at home are working well. Reports she would like to make them from scratch but unsure how. Would like to purchase an affordable ricer/director of food and nutrition. States she has been eating 2-3x per day. Reports SNAP benefits continue to be at higher rate, however they could be reduced any month. Also states she plans to get the last of her upper teeth removed. Cannot afford dentures or implants. Worries about eating plan and satiety without upper dentition. Has heard about programs that make dentures or implants affordable. States her last eye exam in June a spot was found, diabetic retinopathy per report. Has not noticed spot in vision. Diet Recall: 4-6p: Vegetables, udon noodles and chx (70g CHO) 9p: berries or hummus with zucchini sticks 12a: beans and cheese with sour cream or beets Anthropometrics: Ht: 64 Wt: 205# Last reported (no new wt) Physical Activity: Not discussed today. Historically no program. Self-Monitoring Blood Glucose: Still having fear of checking BG. Provided education and demo in previous visits. Diabetes Medications: Metformin 1000 mg BID Pertinent Labs: 06/29/22: 7.3% ; average BG 163 mg/dL ; reports no new labs at September visit. Plans to have December new HgA1c Past Medical History: (Last Reviewed 05/15/21 @ 14:23 by Leeroy Giraldo DO) Depression Diabetes Hyperlipidemia Hypertension Nutrition Rx: Carbohydrates: Meal: 30-45g Snack:15-30g Nutrition Diagnosis: - Difficulty eating r/t missing teeth aeb pt report- continue - Inadequate fiber intake r/t limited whole grains and veggies r/t limited teeth and unsure what to eat- improved - Predicted excessive CHO intake r/t feeling as though only foods she can chew are CHO aeb diet recall and pt report - new Intervention: This participant was very receptive. Provided appropriate educational handouts. Discussed the following topics: Barriers to checking BG Carb recs and current intake. Foods that are soft that are protein or veggies: PRO- fish, PB, beans, ground/minced meats Riced veggie recipe Looked up food processors that she feels she can afford Reviewed some resources for dentures/implants Created SMART goals for patient self-care and success. Goals: Get plain riced veggies- met Check FBG daily and bring next visit- not met Call Denture number for info- new Call about dental implants, as discussed- new Look into affordable director of food and nutrition- new Follow-up: LAM HERNANDEZ follow-up in 3-4 weeks Aniyah Conti RDN, [facility] Certified Diabetes Care and Shirt Trimmer P: [phone] Thank you for this referral
== END ==
PROVIDERS: PCP Family Medicine; Referring Provider Family Medicine; Visit Provider Family Medicine
DX: E11.9 Type 2 diabetes mellitus without complications (principal); Z79.84 Long term (current) use of oral hypoglycemic drugs; Z71.3 Dietary counseling and surveillance
CPT/HCPCS: 97803

== ENCOUNTER → 2022-12-17 16:58 | Outpatient (CLI) | payer MEDICARE, MEDICAID, SELFPAY ==
[2022-12-17 18:17] LABS: Alanine Aminotransferase 28 IU/L (<35); Alkaline Phosphatase 66 U/L (38-126); Aspartate Aminotransferase 22 IU/L (14-36); BUN Creatinine Ratio 16.7 (6-22); Bilirubin Total 0.7 mg/dL (0.2-1.3); Blood Urea Nitrogen 15 mg/dL (7-17); Calcium 9.7 mg/dL (8.4-10.2); Carbon Dioxide 30 mmol/L (22-32); Chloride 100 mmol/L (98-107); Cholesterol 160 mg/dL (140-199); Estimated Glomerular Filt Rate > 60 mL/min (>60); Glucose 130 mg/dL (80-110); HDL Cholesterol 61 mg/dL (40-60); HEMOLYSIS < 15 (0-50); LDL Cholesterol Calculated 75 mg/dL (<100); Potassium 3.9 mmol/L (3.4-5.1); Sodium 139 mmol/L (137-145); Total Protein 7.7 g/dL (6.3-8.2); Triglycerides 121 mg/dL (35-150)
[2022-12-17 18:49] LABS: TSH w/ Reflex to FT4 0.76 uIU/mL (0.47-4.68)
[2022-12-17 18:58] LABS: LDL Cholesterol Direct 64 mg/dL (<100)
[2022-12-21 16:01] LABS: Albumin 4.7 g/dL (3.5-5.0); Albumin Globulin Ratio 1.6 (1.0-2.8)
== END ==
PROVIDERS: PCP Family Medicine; Referring Provider Family Medicine; Visit Provider Family Medicine
DX: E11.9 Type 2 diabetes mellitus without complications (principal); E78.5 Hyperlipidemia, unspecified; I10 Essential (primary) hypertension; E03.8 Other specified hypothyroidism
CPT/HCPCS: 36415; 80053; 80061; 83036; 83721; 84443

== ENCOUNTER → 2023-05-31 12:39 | Outpatient (CLI) | payer MEDICARE, MEDICAID, SELFPAY ==
[2023-06-01 04:09] LABS: Labcorp Hemoglobin (Hb) A1c 6.9 % (4.8-5.6)
== END ==
PROVIDERS: PCP Family Medicine; Referring Provider Family Medicine; Visit Provider Family Medicine
DX: E11.9 Type 2 diabetes mellitus without complications (principal)
CPT/HCPCS: 36415; 83036

== ENCOUNTER → 2023-11-16 12:50 | Outpatient (CLI) | payer MEDICARE, MEDICAID, SELFPAY ==
[2023-11-16 15:52] LABS: Hemoglobin A1C% w Est Avg Glu 6.7 % (4.0-6.0)
[2023-11-16 16:34] LABS: Alanine Aminotransferase 26 IU/L (<35); Albumin 4.1 g/dL (3.5-5.0); Albumin Globulin Ratio 1.5 (1.0-2.8); Alkaline Phosphatase 58 U/L (38-126); Aspartate Aminotransferase 22 IU/L (14-36); BUN Creatinine Ratio 14.7 (6-22); Bilirubin Total 0.5 mg/dL (0.2-1.3); Blood Urea Nitrogen 10 mg/dL (7-17); Calcium 9.9 mg/dL (8.4-10.2); Carbon Dioxide 30 mmol/L (22-32); Chloride 100 mmol/L (98-107); Cholesterol 136 mg/dL (140-199); Estimated Glomerular Filt Rate > 60 mL/min (>60); Globulin 2.7 g/dL (1.7-4.1); Glucose 132 mg/dL (80-110); HDL Cholesterol 59 mg/dL (40-60); HEMOLYSIS < 15 (0-50); LDL Cholesterol Calculated 54 mg/dL (<100); Potassium 4.4 mmol/L (3.4-5.1); Sodium 137 mmol/L (137-145); Total Protein 6.8 g/dL (6.3-8.2); Triglycerides 115 mg/dL (35-150); VLDL Cholesterol Calculated 23 mg/dL (2-30)
[2023-11-16 16:36] LABS: Creatinine Urine Random 60.7 mg/dL
[2023-11-16 16:47] LABS: Microalbumin Urine Random < 0.6 mg/dL (0-1.6)
== END ==
PROVIDERS: PCP Family Medicine; Referring Provider Family Medicine; Visit Provider Family Medicine
DX: E11.9 Type 2 diabetes mellitus without complications (principal)
CPT/HCPCS: 36415; 80053; 80061; 82043; 82570; 83036

== ENCOUNTER 2024-03-25 15:58 | Emergency (ER) | payer MEDICARE, MEDICAID, SELFPAY ==
[2024-03-25 16:09] VITALS: BP 166/79; PULSE 125; RESP 16; TEMP 37.4; O2SAT 96; BMI 32.2
--- NOTE | 2024-03-25 16:31 | ED.FALL ---
HPI - Fall <Sin Sykes PA-C - Last Filed: 03/25/24 18:23> General Chief Complaint: Fall Stated Complaint: fall, hand and knee injury, back pain Time Seen by Provider: 03/25/24 16:31 Source: patient Mode of arrival: Ambulatory History of Present Illness HPI Narrative: This is a 63-year-old female presents emergency department due to mechanical ground level fall. States she was walking down the stairs when she fell forward onto the ground.. She reports lately grazing her left cheek but it was complaining of right wrist, right shoulder, midthoracic, and bilateral hip pain. States she was a history of osteopenia. She is worried that she may have fractured something. Not on blood thinners. She did not lose conscious. Related Data Home Medications Medication Instructions Recorded Confirmed amitriptyline 25 mg tablet 25 mg PO HS ##30 10/10/16 atorvastatin 20 mg tablet (Lipitor) 20 mg PO HS ##30 10/10/16 bupropion HCl 150 mg 24 hr tablet, 150 mg PO QDAY ##30 10/10/16 extended release (Wellbutrin XL) diazepam 5 mg tablet (Valium) PO Q8HP PRN ##45 10/10/16 duloxetine 60 mg capsule,delayed 60 mg PO QDAY ##30 10/10/16 release oxycodone-acetaminophen 5 mg-325 0 tab PO Q4HP PRN ##90 10/10/16 mg tablet quetiapine 200 mg tablet (Seroquel) 200 mg PO HS ##30 10/10/16 Previous Rx's Medication Instructions Recorded promethazine 12.5 mg rectal 12.5 mg OK Q6HP PRN #5 supp 10/10/16 suppository (Phenadoz) metoclopramide HCl 10 mg tablet 10 mg PO Q6H PRN nausea and 03/10/21 (Reglan) vomiting #10 tabs Allergies Allergy/AdvReac Type Severity Reaction Status Date / Time methotrexate [METHOTREXATE] Allergy Unknown Verified 05/15/21 13:05 ondansetron AdvReac Unknown HEADACHE Verified 05/15/21 14:03 [From ZOFRAN ( HYDROCHLORIDE)] Review of Systems <Sin Sykes PA-C - Last Filed: 03/25/24 18:23> Review of Systems Narrative: GENERAL: Denies chills, fatigue, malaise, fever, sweats. HEENT: Denies sinus pain, ear pain, sore throat, difficulty swallowing, dizziness. RESPIRATORY: Denies dyspnea, cough, wheezing, hemoptysis, sputum. CARDIOVASCULAR: Denies chest pain, palpitations, orthopnea, edema, GASTROINTESTINAL: Denies nausea, vomiting, abdominal pain, diarrhea, constipation, melena. : Denies dysuria, frequency, incontinence, hematuria, urinary retention. MUSCULOSKELETAL: Reports right wrist, right shoulder, bilateral hip, midthoracic pain. SKIN: Denies rash, skin lesions, or other NEUROLOGIC: Denies weakness, headache, numbness, change in speech, confusion, seizures, incoordination. PSYCHIATRIC: No concerning psychosocial issues. 12 point review of systems is negative except for those stated above Patient History <Sin Sykes PA-C - Last Filed: 03/25/24 18:23> Medical History Depression Diabetes Hyperlipidemia Hypertension Social History Smoking Status: Former smoker Smoking Status: Former smoker alcohol intake frequency: other Substance Use Type: marijuana Exam <Sin Sykes PA-C - Last Filed: 03/25/24 18:23> Narrative Exam Narrative: GENERAL: Well-developed patient, in mild distress. HEAD: Atraumatic. Normocephalic. EYES: Pupils equal round and reactive. Extraocular motions intact. No scleral icterus. No injection or drainage. ENT: Nose without bleeding, purulent drainage. Throat without erythema, tonsillar hypertrophy or exudate. Airway patent. NECK: Trachea midline. Non tender EXTREMITIES: Mild tenderness to palpation to the right wrist, right shoulder, bilateral hips NEURO: AOx3. SKIN: No rash or erythema of visible areas Back: Tenderness to palpation to the midline thoracic spine Initial Vital Signs Initial Vital Signs: Vital Signs Temperature 99.3 F 03/25/24 16:09 Pulse Rate 125 H 03/25/24 16:09 Respiratory Rate 16 03/25/24 16:09 Blood Pressure 166/79 H 03/25/24 16:09 Pulse Oximetry 96 03/25/24 16:09 Oxygen Delivery Method Room Air 03/25/24 16:09 <Ashlyn Carmen MD - Last Filed: 03/25/24 18:45> Initial Vital Signs Initial Vital Signs: Vital Signs Temperature 99.3 F 03/25/24 16:09 Pulse Rate 125 H 03/25/24 16:09 Respiratory Rate 16 03/25/24 16:09 Blood Pressure 166/79 H 03/25/24 16:09 Pulse Oximetry 96 03/25/24 16:09 Oxygen Delivery Method Room Air 03/25/24 16:09 Course <Sin Sykes PA-C - Last Filed: 03/25/24 18:23> Orders Ordered: ED Orders 03/25/24 17:11 XR hip w pel if done SARAH 3to4V Stat XR shoulder RT min 2V Stat XR thoracic spine 2V Stat XR wrist RT min 3V Stat 03/25/24 17:27 XR wrist LT min 3V Stat Vital Signs Vital signs: Vital Signs - 8 hr 03/25/24 16:09 Temperature 99.3 F Pulse Rate 125 H Respiratory Rate 16 Blood Pressure 166/79 H Pulse Oximetry 96 Oxygen Delivery Method Room Air <Ashlyn Carmen MD - Last Filed: 03/25/24 18:45> Orders Ordered: ED Orders 03/25/24 17:11 XR hip w pel if done SARAH 3to4V Stat XR shoulder RT min 2V Stat XR thoracic spine 2V Stat XR wrist RT min 3V Stat 03/25/24 17:27 XR wrist LT min 3V Stat Vital Signs Vital signs: Vital Signs - 8 hr 03/25/24 16:09 Temperature 99.3 F Pulse Rate 125 H Respiratory Rate 16 Blood Pressure 166/79 H Pulse Oximetry 96 Oxygen Delivery Method Room Air MDM - Fall <Sin Sykes PA-C - Last Filed: 03/25/24 18:23> Imaging Data L wrist XR : Radiologist's Impression: [address] [address] XRay Report Signed Patient: Cassandra Saavedra MR#: [id number] : 1960 Acct:[id number] Age/Sex: 63 / F Date of Service: 03/25/24 Loc: ED Accession Number: [id number] Procedure: XR wrist LT min 3V Ordering Provider: Sin Sykes P.A-C PROCEDURE: XR WRIST LT MIN 3V INDICATIONS: pain TECHNIQUE: 4 views of the wrist were acquired. COMPARISON: [facility], CR, XR WRIST RT MIN 3V, 03/25/2024, 17:20. FINDINGS: Bones: Mild radiocarpal, STT, and 1st CMC degenerative changes. No acute displaced fracture or dislocation. Soft tissues: No suspicious calcifications. IMPRESSION: No acute osseous abnormality. Scattered mild degenerative changes. If there is high concern for occult injury, consider repeat radiography or cross-sectional imaging. Dictated by: Rc Russell M.D. on 03/25/2024 at 17:57 Approved by: Rc Russell M.D. on 03/25/2024 at 17:57 R wrist XR : Radiologist's Impression: [address] [address] XRay Report Signed Patient: Cassandra Saavedra MR#: [id number] : 1960 Acct:[id number] Age/Sex: 63 / F Date of Service: 03/25/24 Loc: ED Accession Number: [id number] Procedure: XR wrist RT min 3V Ordering Provider: Sin Sykes P.A-C PROCEDURE: XR WRIST RT MIN 3V INDICATIONS: R wrist pain after fall TECHNIQUE: 4 views of the wrist were acquired. COMPARISON: None. FINDINGS: Bones: [id number] degenerative changes of the radiocarpal row. Mild degenerative changes of the STT and 1st CMC joints. No acute displaced fracture is identified. Soft tissues: No suspicious calcifications. IMPRESSION: No acute radiographic abnormality. Scattered degenerative changes. If there is high concern for occult injury, consider repeat radiography or cross-sectional imaging. Dictated by: Rc Russell M.D. on 03/25/2024 at 17:55 Approved by: Rc Russell M.D. on 03/25/2024 at 17:55 Thoracic spine XR : Radiologist's Impression: [address] [address] XRay Report Signed Patient: Cassandra Saavedra MR#: [id number] : 1960 Acct:[id number] Age/Sex: 63 / F Date of Service: 03/25/24 Loc: ED Accession Number: [id number] Procedure: XR thoracic spine 2V Ordering Provider: Sin Sykes P.A-C PROCEDURE: XR THORACIC SPINE 2V INDICATIONS: Thoracic TTP after fall TECHNIQUE: 3 views of the thoracic spine were acquired. COMPARISON: None. FINDINGS: Bones: Mild degenerative changes of the thoracic spine. Age-indeterminate wedging of multiple thoracic vertebral bodies in the mid and lower segments. No traumatic subluxation. Degenerative changes also seen in the partially visualized cervical spine. The cervical thoracic junction is not well seen due to overlapping structures. Soft tissues: Possible cardiomegaly. No suspicious calcifications. IMPRESSION: Mild degenerative changes. Age-indeterminate wedging of multiple thoracic vertebral bodies. If there is high concern for further derangement, consider MRI evaluation. Dictated by: Rc Russell M.D. on 03/25/2024 at 17:58 Approved by: Rc Russell M.D. on 03/25/2024 at 18:00 R shoulder XR: Radiologist's Impression: [address] [address] XRay Report Signed Patient: Cassandra Saavedra MR#: [id number] : 1960 Acct:[id number] Age/Sex: 63 / F Date of Service: 03/25/24 Loc: ED Accession Number: [id number] Procedure: XR shoulder RT min 2V Ordering Provider: Sin Skyes P.A-C PROCEDURE: XR SHOULDER RT MIN 2V INDICATIONS: R shoulder pain after fall TECHNIQUE: 3 views of the shoulder were acquired. COMPARISON: None. FINDINGS: Bones: Mild glenohumeral and acromioclavicular degenerative changes. No acute displaced fracture or dislocation. Soft tissues: No suspicious calcifications. IMPRESSION: Degenerative changes. No acute radiographic abnormality. If there is high concern for occult injury, consider repeat radiography or cross-sectional imaging. Dictated by: Rc Russell M.D. on 03/25/2024 at 17:56 Approved by: Rc Russell M.D. on 03/25/2024 at 17:56 Bilat hip XR : Radiologist's Impression: [address] [address] XRay Report Signed Patient: Cassandra Saavedra MR#: [id number] : 1960 Acct:[id number] Age/Sex: 63 / F Date of Service: 03/25/24 Loc: ED Accession Number: [id number] Procedure: XR hip w pel if done SARAH 3to4V Ordering Provider: Sin Sykes P.A-C PROCEDURE: XR HIP W PEL IF DONE SARAH MIN 4V INDICATIONS: R L hip pain after fall TECHNIQUE: AP pelvis with lateral view(s) of the both hip(s). COMPARISON: None. FINDINGS: Bones: Mild bilateral hip arthrosis. Partially seen lumbar hardware. Sacroiliac degenerative changes also present. Soft tissues: No suspicious calcifications. IMPRESSION: Scattered degenerative changes. No acute radiographic abnormality. If there is high concern for occult injury, consider repeat radiography or cross-sectional imaging. Dictated by: Rc Russell M.D. on 03/25/2024 at 17:58 Approved by: Rc Russell M.D. on 03/25/2024 at 17:58 [facility] Narrative Medical decision making narrative: ED course: This is a 63-year-old female presents to the emergency department due to a mechanical ground level fall. Patient reported pain to multiple extremities and was very insistent x-rays were taken. X-rays ordered which were all negative for acute fractures. Thoracic spine X imaging did show age indeterminate fractures although patient was minimal thoracic spine tenderness to palpation and no neuro symptoms so low suspicion that these are acute in nature. Recommended ibuprofen and Tylenol for pain control. CC: Hand pain Complicating co-morbidities: Reported history of osteopenia Data collected from: Previous notes Medical records reviewed: Patient was last seen in this emergency department 3 years ago. History of hyperlipidemia, hypertension, anxiety, frequent episodes of nausea and vomiting. Presenting then for nausea and vomiting. Eventually discharged. History of osteopenia, hypothyroidism, type 2 diabetes. Differential considered, but not limited to: Fracture, soft tissue injury Exam documented above, pertinent findings include: Tenderness to palpation to multiple extremities Lab Test results independently reviewed as above. Pertinent findings: None obtained Imaging studies independently reviewed: All x-rays negative for acute findings Scores Used: None MIPS Elements: None Consultations: None Treatments: None Re-evaluations: None Discussion: Discussed plan with the patient was comfortable with the plan Diagnosis: Soft tissue injury Disposition: see below, along with detailed discharge instructions that have been reviewed with patient as well as indications for ED re-evaluation and additional outpatient follow up Discharge Plan Departure Patient Disposition: Home Clinical Impression: Soft tissue injury Activity Restrictions/Additional Instructions: Thank you for coming to the [facility] Emergency Department today. As we discussed all your x-rays were negative for acute fractures. Please use ibuprofen and Tylenol as needed for pain. Please return to the emergency department if you develop any significant new or worsening pain or any other concerning signs or symptoms. I hope you feel better soon. Please follow up with your primary care provider within a week if your symptoms continue. If you do not have a primary care provider please contact the [facility] Resource line at [phone]. They will ask some questions about your medical history and help you get set up with a provider in the community. Prescriptions: No Action diazepam [Valium] 5 MG tablet PO Q8HP PRNQty: 45 duloxetine 60 MG capsule,delayed release(DR/EC) 60 mg PO QDAY Qty: 30 amitriptyline 25 MG tablet 25 mg PO HS Qty: 30 quetiapine [Seroquel] 200 MG tablet 200 mg PO HS Qty: 30 atorvastatin [Lipitor] 20 MG tablet 20 mg PO HS Qty: 30 bupropion HCl [Wellbutrin XL] 150 MG tablet extended release 24 hr 150 mg PO QDAY Qty: 30 oxycodone-acetaminophen 5 MG/325 MG tablet 0 tab PO Q4HP PRNQty: 90 promethazine [Phenadoz] 12.5 MG suppository 12.5 mg OK Q6HP PRNQty: 5 0RF metoclopramide HCl [Reglan] 10 mg tablet 10 mg PO Q6H PRN (Reason: nausea and vomiting) Qty: 10 0RF Referrals: Sukh Augustin MD [Primary Care Provider] - Stand Alone Forms: Patient Portal/API ED Sign-out <Ashlyn Carmen MD - Last Filed: 03/25/24 18:45> Cosign ED Attending Natanael Attestation: I was immediately available in the department for consultation throughout this patient's visit. Ashlyn Carmen MD
--- NOTE | 2024-03-25 17:11 | DI.RAD.S_ITS ---
PROCEDURE: XR WRIST RT MIN 3V INDICATIONS: R wrist pain after fall TECHNIQUE: 4 views of the wrist were acquired. COMPARISON: None. FINDINGS: Bones: [id number] degenerative changes of the radiocarpal row. Mild degenerative changes of the STT and 1st CMC joints. No acute displaced fracture is identified. Soft tissues: No suspicious calcifications. IMPRESSION: No acute radiographic abnormality. Scattered degenerative changes. If there is high concern for occult injury, consider repeat radiography or cross-sectional imaging. Dictated by: Rc Russell M.D. on 03/25/2024 at 17:55 Approved by: Rc Russell M.D. on 03/25/2024 at 17:55
--- NOTE | 2024-03-25 17:11 | DI.RAD.S_ITS ---
PROCEDURE: XR SHOULDER RT MIN 2V INDICATIONS: R shoulder pain after fall TECHNIQUE: 3 views of the shoulder were acquired. COMPARISON: None. FINDINGS: Bones: Mild glenohumeral and acromioclavicular degenerative changes. No acute displaced fracture or dislocation. Soft tissues: No suspicious calcifications. IMPRESSION: Degenerative changes. No acute radiographic abnormality. If there is high concern for occult injury, consider repeat radiography or cross-sectional imaging. Dictated by: Rc Russell M.D. on 03/25/2024 at 17:56 Approved by: Rc Russell M.D. on 03/25/2024 at 17:56
--- NOTE | 2024-03-25 17:11 | DI.RAD.S_ITS ---
PROCEDURE: XR HIP W PEL IF DONE SARAH MIN 4V INDICATIONS: R L hip pain after fall TECHNIQUE: AP pelvis with lateral view(s) of the both hip(s). COMPARISON: None. FINDINGS: Bones: Mild bilateral hip arthrosis. Partially seen lumbar hardware. Sacroiliac degenerative changes also present. Soft tissues: No suspicious calcifications. IMPRESSION: Scattered degenerative changes. No acute radiographic abnormality. If there is high concern for occult injury, consider repeat radiography or cross-sectional imaging. Dictated by: Rc Russell M.D. on 03/25/2024 at 17:58 Approved by: Rc Russell M.D. on 03/25/2024 at 17:58
--- NOTE | 2024-03-25 17:11 | DI.RAD.S_ITS ---
PROCEDURE: XR THORACIC SPINE 2V INDICATIONS: Thoracic TTP after fall TECHNIQUE: 3 views of the thoracic spine were acquired. COMPARISON: None. FINDINGS: Bones: Mild degenerative changes of the thoracic spine. Age-indeterminate wedging of multiple thoracic vertebral bodies in the mid and lower segments. No traumatic subluxation. Degenerative changes also seen in the partially visualized cervical spine. The cervical thoracic junction is not well seen due to overlapping structures. Soft tissues: Possible cardiomegaly. No suspicious calcifications. IMPRESSION: Mild degenerative changes. Age-indeterminate wedging of multiple thoracic vertebral bodies. If there is high concern for further derangement, consider MRI evaluation. Dictated by: Rc Russell M.D. on 03/25/2024 at 17:58 Approved by: Rc Russell M.D. on 03/25/2024 at 18:00
--- NOTE | 2024-03-25 17:27 | DI.RAD.S_ITS ---
PROCEDURE: XR WRIST LT MIN 3V INDICATIONS: pain TECHNIQUE: 4 views of the wrist were acquired. COMPARISON: [facility], CR, XR WRIST RT MIN 3V, 03/25/2024, 17:20. FINDINGS: Bones: Mild radiocarpal, STT, and 1st CMC degenerative changes. No acute displaced fracture or dislocation. Soft tissues: No suspicious calcifications. IMPRESSION: No acute osseous abnormality. Scattered mild degenerative changes. If there is high concern for occult injury, consider repeat radiography or cross-sectional imaging. Dictated by: Rc Russell M.D. on 03/25/2024 at 17:57 Approved by: Rc Russell M.D. on 03/25/2024 at 17:57
[2024-03-25 18:49] VITALS: BP 134/84; PULSE 105; RESP 14; O2SAT 95
== END 2024-03-25 18:50 | disposition home or self-care (01) ==
PROVIDERS: Emergency Provider Physician Assistant Medical; PCP Family Medicine
DX: S69.81XA Other specified injuries of right wrist, hand and finger(s), initial encounter (principal); S49.81XA Other specified injuries of right shoulder and upper arm, initial encounter; S29.8XXA Other specified injuries of thorax, initial encounter; S79.812A Other specified injuries of left hip, initial encounter; S79.811A Other specified injuries of right hip, initial encounter; W18.30XA Fall on same level, unspecified, initial encounter
CPT/HCPCS: 72070; 73030; 73110; 73522; 99283; 99284

== ENCOUNTER → 2025-02-26 12:39 | Outpatient (CLI) | payer MEDICARE, MEDICAID, SELFPAY ==
--- NOTE | 2025-02-26 12:43 | DI.CT.S_ITS ---
PROCEDURE: CT CERVICAL SPINE WO CON INDICATIONS: BACK PAIN TECHNIQUE: Noncontrast 3 mm thick sections acquired from the skull base to the T4 level. Sagittal and coronal reformats were then constructed. For radiation dose reduction, the following was used: automated exposure control, adjustment of mA and/or kV according to patient size. COMPARISON: [facility], CT, CT THORACIC SPINE WO CON, 09/19/2021, 15:19. [facility], CR, XR CERVICAL SPINE 2 OR 3 VIEWS, 11/03/2024, 12:20. FINDINGS: Image quality: Excellent. Bones: No acute fractures or dislocations. Mild irregularity of the superior endplate of the C7 vertebral body appears unchanged when compared to the CT from 09/19/2021. Generalized osteopenia. Multilevel disc space narrowing and degenerative endplate changes. Multilevel uncovertebral joint and facet hypertrophy. No high-grade narrowing of the bony spinal canal. Multifocal neural foraminal narrowing, overall greater on the left than on the right and most notably at the C5-6 level. Visualized superior ribs are intact. Soft tissues: Prevertebral soft tissues are normal in thickness. No paravertebral hematomas. No apical pneumothoraces. IMPRESSION: 1. No acute displaced fracture or traumatic subluxation. 2. Moderate multilevel spondylosis. 3. Neural foraminal narrowing is most notable at the C5-6 level on the left. 4. No high-grade narrowing of the bony spinal canal. Approved by: Pablo Herman M.D. on 02/26/2025 at 14:21
--- NOTE | 2025-02-26 12:43 | DI.CT.S_ITS ---
PROCEDURE: CT LUMBAR SPINE WO CON INDICATIONS: BACK PAIN TECHNIQUE: Noncontrast 3 mm thick sections acquired from the T12 level to the sacrum. Sagittal and coronal reformats were constructed. For radiation dose reduction, the following was used: automated exposure control. COMPARISON: Outside [facility], CR, XR LUMBAR SPINE 2 OR 3 VIEWS, 11/03/2024, 12:35. [facility], CR, XR LUMBAR SPINE 2 OR 3 VIEWS, 07/24/2021, 13:36. [facility], CT, CT LUMBAR SPINE WO CON, 09/19/2021, 15:19. FINDINGS: Image quality: Excellent. Bones: Postsurgical changes again seen from laminectomy and posterior fixation at L3 through L5. Previously seen discontinuity of the L3 level radiographically again not well visualized with CT. Partial osseous fusion across the L4-5 disc space. There is unchanged bony alignment. No acute vertebral body compression fractures. Generalized osteopenia. No suspicious lytic or blastic bony lesions. No pars defects. T12-L1: No significant spinal canal stenosis or neural foraminal narrowing. L1-L2: No significant spinal canal stenosis or neural foraminal narrowing. L2-L3: Mild disc bulging as well as bilateral facet hypertrophy and buckling of the ligamentum flavum. Findings result in mild narrowing of the neural foramina without significant spinal canal stenosis. Findings appear minimally progressed when compared to the CT from 09/19/2021. L3-L4: Mild circumferential disc bulging and bilateral facet hypertrophy. Findings result in mild narrowing of the spinal canal and mild bilateral neural foraminal narrowing without significant spinal canal stenosis. Findings do not appear significantly changed. L4-L5: Postsurgical changes with associated streak artifact. No significant spinal canal stenosis or neural foraminal narrowing. L5-S1: Loss of disc space height with posterior disc-osteophyte complex and bilateral facet hypertrophy. Findings result in mild to moderate narrowing of the spinal canal as well as moderate to severe left and moderate right neural foraminal narrowing, which appears minimally progressed when compared to the prior CT. Soft tissues: No retroperitoneal masses or hematomas. Visualized aorta is normal in caliber. Stimulator lead again noted in the posterior subcutaneous tissues. IMPRESSION: 1. Postsurgical changes again seen at L3 through L5. Discontinuity of the interbody rods at the L3 level seen radiographically are again not well seen with CT. 2. Multilevel degenerative changes, most notably the L5-S1 level where there is moderate to severe left and moderate right neural foraminal narrowing that has minimally progressed when compared to the CT from 2020. 3. No high-grade spinal canal stenosis. Approved by: Pablo Herman M.D. on 02/26/2025 at 14:48
--- NOTE | 2025-02-26 12:43 | DI.CT.S_ITS ---
PROCEDURE: CT THORACIC SPINE WO CON INDICATIONS: BACK PAIN TECHNIQUE: Noncontrast 3 mm thick sections acquired through the region of interest in the thoracic spine. Sagittal and coronal reformats were then constructed. For radiation dose reduction, the following was used: automated exposure control. COMPARISON: [facility], CT, CT THORACIC SPINE WO CON, 09/19/2021, 15:19. FINDINGS: Image quality: Excellent. Bones: Mild anterior wedging deformity of multiple vertebral body is not significantly changed when compared to the CT from 09/19/2021 and again resulting in mild exaggerated thoracic kyphosis. Very mild dextroconvex curvature. No acute vertebral body compression fractures. No suspicious sclerotic or lytic bony lesions. Multilevel degenerative endplate changes. Bony spinal canal is of normal overall caliber. Soft tissues: No paravertebral masses or hematomas. Visualized posteromedial lungs appear clear. IMPRESSION: 1. Mild chronic anterior wedging deformities at the midthoracic spine appear unchanged, with exaggerated thoracic kyphosis. 2. No acute osseous abnormality. 3. Mild multilevel spondylosis. Approved by: Pablo Herman M.D. on 02/26/2025 at 14:28
== END ==
PROVIDERS: PCP Family Medicine; Referring Provider Family Medicine; Visit Provider Family Medicine
DX: M47.26 Other spondylosis with radiculopathy, lumbar region (principal); M47.27 Other spondylosis with radiculopathy, lumbosacral region; M47.812 Spondylosis without myelopathy or radiculopathy, cervical region; M48.02 Spinal stenosis, cervical region; M54.2 Cervicalgia; M47.814 Spondylosis without myelopathy or radiculopathy, thoracic region; M51.34 Other intervertebral disc degeneration, thoracic region; M40.204 Unspecified kyphosis, thoracic region; M43.8X4 Other specified deforming dorsopathies, thoracic region; M54.50 Low back pain, unspecified; G89.29 Other chronic pain; Z98.1 Arthrodesis status
CPT/HCPCS: 72125; 72128; 72131

== ENCOUNTER 2025-03-21 15:38 | Emergency (ER) | payer MEDICARE, MEDICAID, SELFPAY ==
[2025-03-21] VITALS (17 sets, daily range): BP systolic 145–200; BP diastolic 70–91; PULSE 72–101; RESP 16; TEMP 36.6–38.3; O2SAT 90–99; BMI 30.7
--- NOTE | 2025-03-21 15:55 | EKG_ITS ---
[address] [address] Test Date: 2025-03-21 Pat Name: Cassandra Saavedra Department: [facility] Room: Gender: Female [employer]: : 1960 Requested By: Order Number: [id number] Reading MD: Alireza Ngo MD Measurements Intervals [place] Rate: 72 P: 10 VT: 148 QRS: 6 QRSD: 92 T: 45 QT: 392 QTc: 429 Interpretive Statements Normal sinus rhythm with sinus arrhythmia Inferior infarct , age undetermined Electronically Signed On 03-22-2025 8:41:56 PDT by Alireza Ngo MD
[2025-03-21 16:00] LABS: Add Manual Diff / Slide Review NO; Basophils Absolute Auto 0 /uL (0-100); Basophils Percent Auto 0.4 % (0-2); Eosinophils Absolute Auto 0 /uL (0-450); Eosinophils Percent Auto 0.1 % (2-4); Hematocrit 37.5 % (36-46); Hemoglobin 12.8 g/dL (12.0-16.0); Lymphocytes Absolute Auto 1000 /uL (1100-4500); Mean Corpuscular HGB Conc 34.2 % (30-36); Mean Corpuscular Hemoglobin 28.9 PG (26-34); Mean Corpuscular Volume 84.5 fL (80-100); Monocytes Absolute Auto 300 /uL (0-900); Monocytes Percent Auto 3.9 % (3-14); Neutrophils Absolute Auto 5500 /uL (1500-7000); Neutrophils Percent Auto 80.6 % (50-75); Platelet Count 388 X10^3/uL (150-400); Red Blood Cell Count 4.43 X10^6/uL (4.0-5.2); Red Cell Distribution Width 15.2 % (11.6-14.8); White Blood Cell Count 6.8 X10^3/uL (4.5-11.0)
[2025-03-21 16:04] LABS: Alanine Aminotransferase 32 IU/L (<35); Albumin 5.1 g/dL (3.5-5.0); Albumin Globulin Ratio 1.5 (1.0-2.8); Alkaline Phosphatase 70 U/L (38-126); Aspartate Aminotransferase 30 IU/L (14-36); BUN Creatinine Ratio 23.6 (6-22); Bilirubin Total 0.9 mg/dL (0.2-1.3); Blood Urea Nitrogen 21 mg/dL (7-17); Calcium 9.8 mg/dL (8.4-10.2); Carbon Dioxide 25 mmol/L (22-32); Chloride 97 mmol/L (98-107); Estimated Glomerular Filt Rate > 60 mL/min (>60); Globulin 3.4 g/dL (1.7-4.1); Glucose 167 mg/dL (80-110); HEMOLYSIS < 15 (0-50); Lipase 98 U/L (23-300); Potassium 3.7 mmol/L (3.4-5.1); Sodium 136 mmol/L (137-145); Total Protein 8.5 g/dL (6.3-8.2)
[2025-03-21] MEDS: SODIUM CHLORIDE 0.9% 1,000 ML 1000 ML IV ×2 (16:20→19:22)
[2025-03-21] MEDS: METOCLOPRAMIDE 10 MG/2 ML INJ IV (16:20)
--- NOTE | 2025-03-21 18:52 | ED.NAVMDI ---
HPI - Nausea/Vomiting/Diarrhea General Chief complaint: Nausea/Vomiting/Diarrhea Stated complaint: N/V x4-5hrs Time Seen by Provider: 03/21/25 16:11 History of Present Illness HPI Narrative: 64-year-old female past medical history of hyperlipidemia, hypertension, diabetes, chronic back pain comes into the ED for evaluation of nausea and vomiting ongoing intermittent for the past 4 days, patient does state that the only thing that helps her symptoms typically are oxycodone and promethazine, patient states that taking Zofran causes headaches, does report smoking weed last week before the nausea and vomiting started. Denies any trauma or falls, she denies any other symptoms such as visual loss, chest pain shortness of breath or any other GI/ symptoms at this time. She states that she has random episodes of these symptoms every few months, states that she believes that it is induced due to stress, she states that she has been increasing the having more stress at home. But she denies any actual abdominal pain, she states that she has all the medications that typically helps her symptoms already prescribed but she states that she just can not tolerate this p.o. this is the reason why she came in. Related Data Home Medications Medication Instructions Recorded Confirmed amitriptyline 25 mg tablet 25 mg PO HS ##30 10/10/16 atorvastatin 20 mg tablet (Lipitor) 20 mg PO HS ##30 10/10/16 bupropion HCl 150 mg 24 hr tablet, 150 mg PO QDAY ##30 10/10/16 extended release (Wellbutrin XL) diazepam 5 mg tablet (Valium) PO Q8HP PRN ##45 10/10/16 duloxetine 60 mg capsule,delayed 60 mg PO QDAY ##30 10/10/16 release oxycodone-acetaminophen 5 mg-325 0 tab PO Q4HP PRN ##90 10/10/16 mg tablet quetiapine 200 mg tablet (Seroquel) 200 mg PO HS ##30 10/10/16 Previous Rx's Medication Instructions Recorded promethazine 12.5 mg rectal 12.5 mg [place] Q6HP PRN #5 supp 10/10/16 suppository (Phenadoz) metoclopramide HCl 10 mg tablet 10 mg PO Q6H PRN nausea and 03/10/21 (Reglan) vomiting #10 tabs Allergies Allergy/AdvReac Type Severity Reaction Status Date / Time methotrexate [METHOTREXATE] Allergy Unknown Verified 05/15/21 13:05 ondansetron AdvReac Unknown HEADACHE Verified 05/15/21 14:03 [From ZOFRAN ( HYDROCHLORIDE)] Review of Systems Review of Systems Narrative: General: Denies fever, chills, weight loss HEENT: Denies headache, eye drainage, eye irritation, head trauma, sore throat, voice change Cardiovascular: Denies any chest pain, palpitations, tachycardia Respiratory: Denies any shortness of breath, cough, wheeze, stridor GI/: Positive nausea vomiting, Denies any abdominal pain, diarrhea, bright red blood per rectum, melanotic stools, urinary frequency, urinary retention, dysuria, hematuria MSK: Denies any joint pain, muscle pains, swelling Skin: Denies any rashes, lesions, discoloration Neuro: Denies any headache, lightheadedness, dizziness, fainting, weakness Psych: Denies SI/HI Patient History Medical History Depression Diabetes Hyperlipidemia Hypertension alcohol intake frequency: other Exam Narrative Exam Narrative: General: Cooperative, well-developed, not in acute distress HEENT: Normocephalic, atraumatic, PERRLA, normal sclera, eyelids normal Neck: Active full range of motion, atraumatic Chest: Normal to inspection, negative crepitus, no overlying erythema ecchymosis Respiratory: Normal respiratory effort, not in acute respiratory distress, clear to auscultation bilaterally negative cough, wheeze, tachypnea, rhonchi, rales Cardiology: Regular rate rhythm negative gallop, murmur, rubs GI/: No tenderness to palpation, soft, non rigid, normal to inspection, exam deferred MSK: Full active range of motion in all 4 extremities, atraumatic, no tenderness to palpation of any bony prominences Skin: No rashes or lesions noted Neuro: Alert awake oriented x3, moves all 4 extremities spontaneously, cranial nerves intact, able to answer all questions appropriately follows commands appropriately Psych: Cooperative, negative suicidal or homicidal ideations Initial Vital Signs Initial Vital Signs: Vital Signs Pulse Rate 72 03/21/25 15:42 Blood Pressure 182/86 H 03/21/25 15:42 Pulse Oximetry 97 03/21/25 15:42 Course Orders Ordered: ED Orders 03/21/25 15:45 Complete Blood Count AUTO DIFF Stat Comprehensive Metabolic Panel Stat Lipase Stat 03/21/25 15:46 EKG-12 Lead Stat Discontinued Medications Sodium Chloride (Normal Saline 0.9%) 1,000 mls @ 1,000 mls/hr IV BOLUS ONE Stop: 03/21/25 17:11 Last Infusion: 03/21/25 17:49 Dose: Infused Documented By: Admin: 03/21/25 16:20 Dose: 1,000 mls/hr Documented By: AIMEE Sodium Chloride (Normal Saline 0.9%) 1,000 mls @ 1,000 mls/hr IV BOLUS ONE Stop: 03/21/25 20:01 Last Infusion: 03/21/25 20:08 Dose: Infused Documented By: Admin: 03/21/25 19:22 Dose: 1,000 mls/hr Documented By: AIMEE Lorazepam (Lorazepam 2 Mg/Ml Inj) 1 mg IV NOW ONE Stop: 03/21/25 19:03 Last Admin: 03/21/25 19:21 Dose: 1 mg Documented By: AIMEE Metoclopramide HCl (Metoclopramide 10 Mg/2 Ml Inj) 10 mg IV NOW ONE Stop: 03/21/25 16:13 Last Admin: 03/21/25 16:20 Dose: 10 mg Documented By: AIMEE Morphine Sulfate (Morphine 4 Mg/Ml Inj) 4 mg IV NOW ONE Stop: 03/21/25 19:03 Last Admin: 03/21/25 19:22 Dose: 4 mg Documented By: AIMEE Vital Signs Vital signs: Vital Signs - 8 hr 03/21/25 15:42 03/21/25 15:42 03/21/25 15:44 Temperature 97.8 F Pulse Rate 72 72 Respiratory Rate 16 Blood Pressure 182/86 H 182/86 H Pulse Oximetry 97 97 Oxygen Delivery Method Room Air 03/21/25 16:00 03/21/25 16:30 03/21/25 17:00 Temperature Pulse Rate 81 75 76 Respiratory Rate Blood Pressure Pulse Oximetry 99 99 Oxygen Delivery Method 03/21/25 17:30 03/21/25 17:45 03/21/25 18:05 Temperature Pulse Rate 79 88 Respiratory Rate Blood Pressure 173/83 H Pulse Oximetry 95 95 Oxygen Delivery Method 03/21/25 18:35 03/21/25 18:36 03/21/25 18:36 Temperature Pulse Rate 86 Respiratory Rate Blood Pressure 182/81 H Pulse Oximetry 95 96 Oxygen Delivery Method 03/21/25 19:00 03/21/25 19:01 03/21/25 19:01 Temperature Pulse Rate 91 H 90 Respiratory Rate Blood Pressure 166/70 H Pulse Oximetry 97 98 Oxygen Delivery Method 03/21/25 19:30 03/21/25 19:31 03/21/25 19:32 Temperature 98.1 F 100.9 F H Pulse Rate 101 H 94 H Respiratory Rate Blood Pressure 200/91 H Pulse Oximetry 97 96 Oxygen Delivery Method 03/21/25 20:00 Temperature Pulse Rate 76 Respiratory Rate Blood Pressure Pulse Oximetry 90 L Oxygen Delivery Method MDM - Nausea/Vomiting/Diarrhea Differential Diagnosis Differential diagnosis: Likely gastroenteritis, drug-induced nausea and vomiting, dehydration and other (Urinary tract infection, electrolyte abnormality) Lab Data 03/21/25 15:45 03/21/25 15:45 Labs: Lab Results 03/21/25 Range/Units 15:45 WBC 6.8 (4.5-11.0) X10^3/uL RBC 4.43 (4.0-5.2) X10^6/uL Hgb 12.8 (12.0-16.0) g/dL Hct 37.5 (36-46) % MCV 84.5 (80-100) fL MCH 28.9 (26-34) PG MCHC 34.2 (30-36) % RDW 15.2 H (11.6-14.8) % Plt Count 388 (150-400) X10^3/uL Neut % (Auto) 80.6 H (50-75) % Lymph % (Auto) 15.0 L (25-40) % [place] % (Auto) 3.9 (3-14) % Eos % (Auto) 0.1 L (2-4) % Baso % (Auto) 0.4 (0-2) % Neut # (Auto) 5500 (3875-0805) /uL Lymph # (Auto) 1000 L (6578-1044) /uL [place] # (Auto) 300 (0-900) /uL Eos # (Auto) 0 (0-450) /uL Baso # (Auto) 0 (0-100) /uL Sodium 136 L (137-145) mmol/L Potassium 3.7 (3.4-5.1) mmol/L Chloride 97 L (98-107) mmol/L Carbon Dioxide 25 (22-32) mmol/L BUN 21 H (7-17) mg/dL Creatinine 0.89 (0.52-1.04) mg/dL Estimated GFR > 60 (>60) mL/min BUN/Creatinine Ratio 23.6 H (6-22) Glucose 167 H (80-110) mg/dL Calcium 9.8 (8.4-10.2) mg/dL Total Bilirubin 0.9 (0.2-1.3) mg/dL AST 30 (14-36) IU/L ALT 32 (<35) IU/L Alkaline Phosphatase 70 (38-126) U/L Total Protein 8.5 H (6.3-8.2) g/dL Albumin 5.1 H (3.5-5.0) g/dL Globulin 3.4 (1.7-4.1) g/dL Albumin/Globulin Ratio 1.5 (1.0-2.8) Lipase 98 (23-300) U/L Urine Dip Bedside Urine Glucose Negative Bedside Urine Bilirubin - Negative Bedside Urine Ketone +++ 80 Urine Specific [place] 1.020 Bedside Urine Occult Blood +/- Bedside Urine pH 6.0 Bedside Urine Protein +/- 15 Bedside Urine Urobilinogen - Negative Bedside Urine Nitrite - Negative Bedside Urine Leukocytes - Negative Esterase ECG Data Interpretation: EKG interpreted ED physician sinus 72 beats per minute QTC [address] changes no STEMI MDM Narrative Medical decision making narrative: 64-year-old female with a past medical history of hyperlipidemia, hypertension, diabetes, chronic pain comes into the ED from home for evaluation nausea vomiting, she states that she gets random bouts of nausea and vomiting every few years, states that she thinks this is secondary to increased stressors. She states that normally she has all the medications that can control the symptoms however over the past few days she has been unable to tolerate anything p.o. the which is the reason why she came into the ED today. Patient had lab work without any leukocytosis, Chem panel unremarkable, urinalysis not consistent with acute urinary tract infection she denies any actual true abdominal pain, she was given fluids, Reglan, Ativan, morphine with significant improvement of her symptoms, she was able to pass p.o. challenge here in the emergency department, she was given strict return precautions she verbalized understanding of this and agrees to being discharged home with outpatient follow up 2020: Patient re-evaluated had complete resolution of symptoms here, is able to tolerate p.o. liquids and solids, she will be discharged home with strict return precaution verbalized understanding of this and agrees to being discharged home with outpatient follow up Discharge Plan Departure Patient Disposition: Home Clinical Impression: Nausea & vomiting Instructions: DI for Nausea -- Child, DI for Vomiting -- Adult Activity Restrictions/Additional Instructions: Please follow up with the primary care doctor Please read the discharge instructions sheet carefully and bring all papers to all doctor follow-up visits, as it may contain information that your doctor may want to see. Disease processes change and evolve, if your symptoms worsen or if you develop any new symptoms that are concerning to you please return for evaluation. Your evaluation today does not show any evidence of any life-threatening/serious illnesses requiring admission to the hospital or surgery. Please follow-up with your doctor for re-evaluation in approximately 1 day. Seek immediate medical attention for any worrisome symptoms. *If you do not have a primary care provider please contact the [facility] Resource line at [phone]. They will ask some questions about your medical history and help get you set up with a doctor in the community. Prescriptions: No Action diazepam [Valium] 5 MG tablet PO Q8HP PRNQty: 45 duloxetine 60 MG capsule,delayed release(DR/EC) 60 mg PO QDAY Qty: 30 amitriptyline 25 MG tablet 25 mg PO HS Qty: 30 quetiapine [Seroquel] 200 MG tablet 200 mg PO HS Qty: 30 atorvastatin [Lipitor] 20 MG tablet 20 mg PO HS Qty: 30 bupropion HCl [Wellbutrin XL] 150 MG tablet extended release 24 hr 150 mg PO QDAY Qty: 30 oxycodone-acetaminophen 5 MG/325 MG tablet 0 tab PO Q4HP PRNQty: 90 promethazine [Phenadoz] 12.5 MG suppository 12.5 mg [place] Q6HP PRNQty: 5 0RF metoclopramide HCl [Reglan] 10 mg tablet 10 mg PO Q6H PRN (Reason: nausea and vomiting) Qty: 10 0RF Referrals: Sukh Augustin MD [Primary Care Provider] - Stand Alone Forms: Patient Portal/API/Survey
[2025-03-21] MEDS: LORazepam 2 MG/ML INJ 1 MG IV (19:21)
[2025-03-21] MEDS: MORPHINE 4 MG/ML INJ IV (19:22)
--- NOTE | 2025-03-22 15:43 | CM.SWNOTE ---
ED PHLEBOTOMIST SUPERVISOR/INSTRUCTOR Follow up Note: Pt called the ED requesting to speak with a Shipyard Helper. ED PHLEBOTOMIST SUPERVISOR/INSTRUCTOR introduced self and role. Pt reports she presented to the ED last night and was discharged home - she was told by her nurse that she might be able to get a taxi voucher home but she ultimately was not given it. Pt presented as tearful, I am glad I was able to scrape by to pay it. I have very minimal income and I am worried about if I ever get sick again, what will happen? PHLEBOTOMIST SUPERVISOR/INSTRUCTOR utilized reflective listening to help validate pt emotions and experience. PHLEBOTOMIST SUPERVISOR/INSTRUCTOR provided contacts to [employer] and inquired if pt would benefit from [employer] day passes for any upcoming follow up appointments, pt declined both and states she already has those contacts/resources. Pt would benefit from continued community coordination and consideration for taxi voucher/bus pass if presents to the ED again in the imminent future. Arminda Jang, [employer]
== END 2025-03-21 20:34 | disposition home or self-care (01) ==
PROVIDERS: Emergency Medicine; Emergency Provider Student in an Organized Health Care Education/Training Program; PCP Family Medicine
DX: R11.2 Nausea with vomiting, unspecified (principal); I10 Essential (primary) hypertension
CPT/HCPCS: 80053; 81003; 83690; 85025; 93005; 96361; 96374; 96375; 99283; 99284; J2060; J2270; J2765

== ENCOUNTER 2025-06-15 22:19 | Emergency (ER) | payer MEDICARE, MEDICAID, SELFPAY ==
[2025-06-15 22:24] VITALS: BP 180/79; PULSE 53; RESP 19; TEMP 37.3; O2SAT 98; BMI 27.4
[2025-06-15 22:29] VITALS: BMI 27.4
[2025-06-16] VITALS (14 sets, daily range): BP systolic 128–211; BP diastolic 62–89; PULSE 43–64; TEMP 36.8; O2SAT 91–98
[2025-06-16 02:17] LABS: Appearance Urine UA CLEAR; Bilirubin Urine UA NEGATIVE (NEGATIVE); Color Urine UA YELLOW; Glucose Urine UA NEGATIVE (Negative); Ketones Urine UA NEGATIVE (NEGATIVE); Leukocyte Esterase Urine UA NEGATIVE (NEGATIVE); Nitrite Urine UA NEGATIVE (Negative); Occult Blood Urine UA NEGATIVE (Negative); Protein Urine UA 2+ (Negative); Specific Gravity Urine UA 1.015 (1.000-1.035); Urobilinogen Urine UA 1.0 E.U./dL (0.2)
[2025-06-16 02:19] LABS: pH Urine UA 8.5 (4.5-8.0)
--- NOTE | 2025-06-16 02:21 | ED.NAVMDI ---
HPI - Nausea/Vomiting/Diarrhea General Chief complaint: Nausea/Vomiting/Diarrhea Stated complaint: N/V for hours Time Seen by Provider: 06/15/25 23:15 Source: patient Mode of arrival: Ambulatory History of Present Illness HPI Narrative: 64-year-old female past medical history of hyperlipidemia, hypertension, diabetes, chronic back pain, seen multiple times in our ER for nonbilious nonbloody nausea vomiting abdominal pain for which she takes oxycodone promethazine at home and does smoke weed intermitentl from time to time. She denies fever chills urinary complaints chest pain shortness of breath or back pain. Other than what is stated 14 point review system is negative. Related Data Home Medications ?Medication ?Instructions ?Recorded ?Confirmed amitriptyline 25 mg tablet 25 mg PO HS ##30 10/10/16 atorvastatin 20 mg tablet (Lipitor) 20 mg PO HS ##30 10/10/16 bupropion HCl 150 mg 24 hr tablet, 150 mg PO QDAY ##30 10/10/16 extended release (Wellbutrin XL) diazepam 5 mg tablet (Valium) PO Q8HP PRN ##45 10/10/16 duloxetine 60 mg capsule,delayed 60 mg PO QDAY ##30 10/10/16 release oxycodone-acetaminophen 5 mg-325 0 tab PO Q4HP PRN ##90 10/10/16 mg tablet quetiapine 200 mg tablet (Seroquel) 200 mg PO HS ##30 10/10/16 Previous Rx's ?Medication ?Instructions ?Recorded promethazine 12.5 mg rectal 12.5 mg [place] Q6HP PRN #5 supp 10/10/16 suppository (Phenadoz) metoclopramide HCl 10 mg tablet 10 mg PO Q6H PRN nausea and 03/10/21 (Reglan) vomiting #10 tabs Allergies Allergy/AdvReac Type Severity Reaction Status Date / Time acetaminophen (From Vicodin) Allergy Mild ITCHING Verified 06/15/25 22:28 hydrocodone (From Vicodin) Allergy Mild ITCHING Verified 06/15/25 22:28 methotrexate (METHOTREXATE) Allergy Unknown Verified 06/15/25 22:28 ondansetron (From ZOFRAN ( AdvReac Unknown HEADACHE Verified 06/15/25 22:28 HYDROCHLORIDE)) Review of Systems Review of Systems ROS Unobtainable: All systems reviewed & are unremarkable except as noted in HPI and below Patient History Medical History Depression Diabetes Hyperlipidemia Hypertension Smoking Status: Former smoker alcohol intake frequency: other Exam Narrative Exam Narrative: GENERAL: [64] year old patient appears stated age. Well-developed patient, in mild distress. HEAD: Atraumatic. Normocephalic. EYES: Pupils equal round and reactive. Extraocular motions intact. No scleral icterus. No injection or drainage. ENT: Nose without bleeding, purulent drainage. Throat without erythema, tonsillar hypertrophy or exudate. Airway patent. NECK: Trachea midline. Non tender CARDIOVASCULAR: Regular rate and rhythm without murmurs, gallops, or rubs. RESPIRATORY: Clear to auscultation. Breath sounds equal bilaterally. No wheezes, rales, or rhonchi. GASTROINTESTINAL: Abdomen soft, non-tender, nondistended. EXTREMITIES: No edema or joint tenderness. BACK: Nontender without deformity or crepitance. No flank tenderness. NEURO: AOx3. SKIN: No rash or erythema of visible areas Initial Vital Signs Initial Vital Signs: Vital Signs Temperature 99.1 F 06/15/25 22:24 Pulse Rate 53 L 06/15/25 22:24 Respiratory Rate 19 06/15/25 22:24 Blood Pressure 180/79 H 06/15/25 22:24 Pulse Oximetry 98 06/15/25 22:24 Oxygen Delivery Method Room Air 06/15/25 22:24 Course Orders Ordered: ED Orders 06/16/25 02:00 Urinalysis and Microscopic Stat Vital Signs Vital signs: Vital Signs - 8 hr 06/15/25 22:24 06/16/25 02:03 06/16/25 02:04 Temperature 99.1 F Pulse Rate 53 L 50 L Respiratory Rate 19 Blood Pressure 180/79 H Pulse Oximetry 98 97 97 Oxygen Delivery Method Room Air 06/16/25 02:04 Temperature 98.3 F Pulse Rate Respiratory Rate Blood Pressure 211/85 H Pulse Oximetry Oxygen Delivery Method MDM - Nausea/Vomiting/Diarrhea Lab Data Labs: Lab Results 06/16/25 Range/Units 02:00 Urine Color Yellow Urine Appearance Clear Urine pH 8.5 H (4.5-8.0) Ur Specific [place] 1.015 (1.000-1.035) Urine Protein 2+ H (Negative) Urine Glucose (UA) Negative (Negative) g/dL Urine Ketones Negative (NEGATIVE) Urine Occult Blood Negative (Negative) Urine Nitrate Negative (Negative) Urine Bilirubin Negative (NEGATIVE) Urine Urobilinogen 1.0 (0.2) E.U./dL Ur Leukocyte Esterase Negative (NEGATIVE) Urine Dip Bedside Urine Glucose Negative Bedside Urine Bilirubin - Negative Bedside Urine Ketone - Negative Urine Specific [place] 1.010 Bedside Urine Occult Blood - Negative Bedside Urine pH 8.5 Bedside Urine Protein + 30 Bedside Urine Urobilinogen - Negative Bedside Urine Nitrite - Negative Bedside Urine Leukocytes - Negative Esterase MDM Narrative Medical decision making narrative: All lab work, vital signs, nurse triage note, medication list, previous ER visits, and all imaging studies reviewed. Patient given fluids droperidol Benadryl here BUN 17 creatinine 0.72 sodium 140 potassium 3.7 white count normal. Differential diagnosis viral, dehydrated, electrolyte direction, cyclic abdominal vomiting syndrome. Discharge Plan Departure Patient Disposition: Home Clinical Impression: Nausea and vomiting Qualifiers: Vomiting type: unspecified Qualified Code(s): R11.2 - Nausea with vomiting, unspecified Instructions: DI for Vomiting -- Adult Activity Restrictions/Additional Instructions: Return with new or worsening symptoms. Clear liquid diet advance as tolerated. Keep hydrated. Follow up PCP in 1-2 weeks if no improvement in symptoms. Prescriptions: No Action diazepam [Valium] 5 MG tablet PO Q8HP PRNQty: 45 duloxetine 60 MG capsule,delayed release(DR/EC) 60 mg PO QDAY Qty: 30 amitriptyline 25 MG tablet 25 mg PO HS Qty: 30 quetiapine [Seroquel] 200 MG tablet 200 mg PO HS Qty: 30 atorvastatin [Lipitor] 20 MG tablet 20 mg PO HS Qty: 30 bupropion HCl [Wellbutrin XL] 150 MG tablet extended release 24 hr 150 mg PO QDAY Qty: 30 oxycodone-acetaminophen 5 MG/325 MG tablet 0 tab PO Q4HP PRNQty: 90 promethazine [Phenadoz] 12.5 MG suppository 12.5 mg [place] Q6HP PRNQty: 5 0RF metoclopramide HCl [Reglan] 10 mg tablet 10 mg PO Q6H PRN (Reason: nausea and vomiting) Qty: 10 0RF Referrals: Sukh Augustin MD [Primary Care Provider, Medical] Stand Alone Forms: Patient Portal/API
[2025-06-16 02:34] LABS: Culture Indicated Urine Cult Not Indicated
[2025-06-16 02:38] LABS: Add Manual Diff / Slide Review NO; Hematocrit 34.6 % (36-46); Hemoglobin 11.6 g/dL (12.0-16.0); Lymphocytes Absolute Auto 1000 /uL (1100-4500); Mean Corpuscular HGB Conc 33.5 % (30-36); Mean Corpuscular Hemoglobin 29.3 PG (26-34); Mean Corpuscular Volume 87.5 fL (80-100); Platelet Count 328 X10^3/uL (150-400)
[2025-06-16] MEDS: LACTATED RINGERS 1,000 ML 1000 ML IV (02:42)
[2025-06-16] MEDS: diphenhydrAMINE 50 MG/ML VIAL IV (02:43)
[2025-06-16 02:47] LABS: Alanine Aminotransferase 37 IU/L (<35); Albumin 4.7 g/dL (3.5-5.0); Albumin Globulin Ratio 1.6 (1.0-2.8); Alkaline Phosphatase 57 U/L (38-126); Blood Urea Nitrogen 17 mg/dL (7-17); Calcium 9.6 mg/dL (8.4-10.2); Carbon Dioxide 31 mmol/L (22-32); Chloride 100 mmol/L (98-107); Estimated Glomerular Filt Rate > 60 mL/min (>60); Globulin 2.9 g/dL (1.7-4.1); Glucose 156 mg/dL (70-99); HEMOLYSIS < 15 (0-50); Potassium 3.7 mmol/L (3.4-5.1); Sodium 140 mmol/L (137-145); Total Protein 7.6 g/dL (6.3-8.2)
[2025-06-16] MEDS: droPERidol 2.5 MG/ML VIAL IV (02:47)
[2025-06-16] MEDS: KETOROLAC 30 MG/ML VIAL IV (02:47)
== END 2025-06-16 06:08 | disposition home or self-care (01) ==
PROVIDERS: Emergency Provider Family Medicine; PCP Family Medicine
DX: R11.2 Nausea with vomiting, unspecified (principal); R10.9 Unspecified abdominal pain
CPT/HCPCS: 36415; 80053; 81001; 81003; 85025; 96361; 96374; 96375; 99284; J1200; J1790; J1885